=== PATIENT | male | born 1960 | race Two or more races ===

== ENCOUNTER 2025-02-13 19:20 | Emergency (ER) | payer MEDICAID, OTHER ==
[~2025-02-13] VITALS: Ht 180.3 cm; Wt 100.1 kg
--- NOTE | 2025-02-13 19:43 | ED.PDOC ---
HPI Comments 64 y.o male with PMHx of CVA and HTN, presents to the ED for a chief complaint of right sided chest pain that started one hour ago and is associated with SOB. Patient rates pain an 8/10, is non radiating, constant and presented at rest. Patient reports recent admission to this hospital s/p fall with a right lower leg injury and chest pain. Records review, however, does not show recent admission. Patient states he was discharged today, unsure of his diagnosis. Patient does have clean bandages dated today localized to his right lower leg. He mentions he is homeless. Patient denies any nausea, vomiting, fever, chills. Patient admits to tobacco and alcohol use. Chief Complaint: Chest Pain Time Seen by MD: 19:32 Reviewed Notes: Nurses Notes, Medications, Allergies Home Meds Active Scripts Cephalexin Monohydrate (Cephalexin) 500 Mg Cap, 500 MG PO Q6HR for 5 Days, #20 MG Prov:ELSI HIRSCH MD 02/13/25 Information Source: Patient Mode of Arrival: Ambulatory Severity: Moderate Timing: Hours (1) Duration: Since onset Location: Chest (R) Radiation: No Radiation Quality: Sharp Onset: At Rest Cardiac Risk Factors: Smoker, HTN PE Risk Factors: None History of: None Modifying Factors: Nothing Associated Signs and Symptoms: SOB Past Medical History PAST MEDICAL HISTORY: CVA, HTN Surgical History: Denies all surgeries Family History Family History: Reviewed,noncontributory to illness Social History Smoker: Cigarettes Alcohol: Occasionally Drugs: Denies Drug Use Lives In: Home Constitutional: denies: chills, diaphoresis, fatigue, fever, malaise, sweats, weakness, others EENTM: denies: blurred vision, double vision, ear bleeding, ear discharge, ear drainage, ear pain, ear ringing, eye pain, eye redness, hearing loss, mouth pain, mouth swelling, nasal discharge, nose bleeding, nose congestion, nose pain, photophobia, tearing, throat pain, throat swelling, voice changes, others Respiratory: reports: SOB at rest, shortness of breath, SOB with excertion; denies: cough, hemoptysis, orthopnea, stridor, wheezing, others Cardiovascular: reports: chest pain; denies: dizzy spells, diaphoresis, Dyspnea on exertion, edema, irregular heart beat, left arm pain, lightheadedness, palpitations, PND, syncope, others Gastrointestinal: denies: abdomen distended, abdominal pain, blood streaked bowels, constipated, diarrhea, dysphagia, difficulty swallowing, hematemesis, melena, nausea, poor appetite, poor fluid intake, rectal bleeding, rectal pain, vomiting, others Genitourinary: denies: burning, dysuria, flank pain, frequency, hematuria, incontinence, penile discharge, penile sore, pain, testicle pain, testicle swelling, urgency, others Neurological: denies: dizziness, fainting, headache, left sided numbness, left sided weakness, numbness, paresthesia, pre-existing deficit, right sided numbness, right sided weakness, seizure, speech problems, tingling, tremors, weakness, others Musculoskeletal: denies: back pain, gout, joint pain, joint swelling, muscle pain, muscle stiffness, neck pain, others Integumetry: denies: bruises, change in color, change in hair/nails, dryness, laceration, lesions, lumps, rash, wounds, others Allergic/Immunocompromised: denies: Difficulty Healing, Frequent Infections, Hives, Itching, others Hematologic/Lymphatic: denies: anemia, blood clots, easy bleeding, easy bruising, swollen glands, others Endocrine: denies: excessive hunger, excessive sweating, excessive thirst, excessive urination, flushing, intolerance to cold, intolerance to heat, unexplained weight gain, unexplained weight loss, others Psychiatric: denies: anxiety, bipolar disorder, depression, hopeless, panic disorder, schizophrenia, sleepless, suicidal, others All Other Systems: Reviewed and Negative (ROS negative except as noted in HPI) Physical Exam General Appearance: No Apparent Distress, Normal HEENT: Normal ENT Inspection, Pharynx Normal, TMs Normal Neck: Full Range of Motion, Non-Tender, Normal, Normal Inspection Respiratory: Chest Non-Tender, Lungs Clear, No Accessory Muscle Use, No Respiratory Distress, Normal Breath Sounds Cardiovascular: No Edema, No JVD, No Murmur, No Gallop, Normal Peripheral Pulses, Regular Rate/Rhythm Breast Exam: Deferred Gastrointestinal: No Organomegaly, Non Tender, No Pulsatile Mass, Normal Bowel Sounds, Soft Genitalia: Deferred Pelvic: Deferred Rectal: Deferred Extremities: No calf tenderness, Normal capillary refill, Normal inspection, Normal range of motion, Non-tender, No pedal edema Musculoskeletal : Apperance: Normal Neurologic: Alert, platform attendant II-XII nml as Tested, No Motor Deficits (Chronic right upper extremity contracture), Normal Affect, Normal Mood, No Sensory Deficits Cerebellar Function: NOT DONE Reflexes: NOT DONE Skin: Dry, Normal Color, Warm, Other (Erythema to the right lower leg, not circumferential, minimal tenderness to palpation, no open wounds or discharge, ambulating with a steady gait in no distress) Lymphatic: No Adenopathy EKG EKG : Comments Normal sinus rhythm, no acute ST segment changes, prolonged QTC, no STEMI Was a procedure done? Was a procedure done?: No CP Differential Dx Differential Diagnosis: N/A Differential Diagnosis: Angina, Chest Wall Pain, Cholelithiasis, Costochondritis, Myocardial Infarction, Pericarditis Comment cellulitis, abscess, necrotizing soft tissue infection, sepsis X-Ray, Labs, Meds, VS Vital Signs Date Time Temp Pulse Resp B/P (MAP) Pulse Ox O2 Delivery O2 Flow Rate FiO2 02/13/25 22:08 97.9 63 16 150/88 (108) 97 97.9 02/13/25 21:59 64 19 150/88 02/13/25 21:40 73 15 95 Room Air* 0 21 02/13/25 21:29 76 18 146/85 02/13/25 21:01 97.4 73 16 146/85 (105) 98 97.4 02/13/25 19:44 98.4 79 20 149/90 (109) 95 98.4 02/13/25 19:29 72 Lab Test 02/13/25 21:38 02/13/25 20:23 02/13/25 19:20 Range/Units Lactic Acid Level 1.5 2.8 *H 0.4-2.0 mmol/L Troponin I High Sensitivity < 3 L 3 L < 3 L </=54 ng/L White Blood Count 12.2 H 4.4-10.8 10^3/uL Red Blood Count 5.70 4.5-5.90 10^6/uL Hemoglobin 16.6 13.5-17.5 g/dL Hematocrit 50.2 41.0-53.0 % Mean Corpuscular Volume 87.9 80.0-100.0 fL Mean Corpuscular Hemoglobin 29.1 28.0-32.0 pg Mean Corpuscular Hemoglobin Concent 33.1 32.0-36.0 g/dL Red Cell Distribution Width 14.1 11.8-14.3 % Platelet Count 378 140-450 10^3/uL Mean Platelet Volume 8.1 6.9-10.8 fL Neutrophils (%) (Auto) 59.7 37.0-80.0 % Lymphocytes (%) (Auto) 30.7 10.0-50.0 % Monocytes (%) (Auto) 7.7 0.0-12.0 % Eosinophils (%) (Auto) 1.3 0.0-7.0 % Basophils (%) (Auto) 0.6 0.0-2.0 % Neutrophils # (Auto) 7.3 1.6-8.6 10 ^3/uL Lymphocytes # (Auto) 3.7 0.4-5.4 10 ^3/uL Monocytes # (Auto) 0.9 0-1.3 10 ^3/uL Eosinophils # (Auto) 0.2 0-0.8 10 ^3/uL Basophils # (Auto) 0.1 0-0.2 10 ^3/uL Nucleated Red Blood Cells 0.6 % Sodium Level 139 136-145 mmol/L Potassium Level 4.1 3.5-5.1 mmol/L Chloride Level 104 98-107 mmol/L Carbon Dioxide Level 21 20-31 mmol/L Anion Gap 14 5-15 Blood Urea Nitrogen 30 H 9-23 mg/dL Creatinine 1.43 H 0.700-1.30 mg/dL Glomerular Filtration Rate Calc 55 >90 mL/min BUN/Creatinine Ratio 21.0 H 10.0-20.0 Serum Glucose 121 H 74-106 mg/dL Calcium Level 9.9 8.7-10.4 mg/dL Total Bilirubin 0.4 0.2-1.0 mg/dL Aspartate Amino Transferase (AST) 70 H 13-40 U/L Alanine Aminotransferase (ALT) 89 H 7-40 U/L Alkaline Phosphatase 68 46-116 U/L B-Type Natriuretic Peptide 8.99 0-100 pg/mL Total Protein 8.5 H 5.7-8.2 g/dL Albumin 4.8 3.2-4.8 g/dL Current Medications Medications (Trade) Dose Ordered Sig/Raquel Route Start Time Stop Time Status Last Admin Morphine Sulfate 4 mg ONCE ONCE IV 02/13/25 21:30 02/13/25 21:31 DC 02/13/25 21:29 Ondansetron HCl (Zofran) 4 mg ONCE ONCE IV 02/13/25 21:30 02/13/25 21:31 DC 02/13/25 21:29 Sodium Chloride 1,000 ml @ 1,000 mls/hr Q1H ONCE IV 02/13/25 21:30 02/13/25 22:29 DC 02/13/25 21:34 Ceftriaxone Sodium 50 ml @ 100 mls/hr ONCE ONCE IV 02/13/25 21:30 02/13/25 21:59 DC 02/13/25 21:30 X-Ray, Labs, Meds, VS Comment 64-year-old male here today with complaints of right lower extremity infection and chest pain. Vital signs stable, afebrile. Physical exam as above with ev idence of cellulitis to the right lower extremity but no evidence of necrotizing soft tissue infection, deep space abscess, or other more concerning acute process. Labs overall reassuring with evidence of 2- troponins. EKG without evidence of acute ischemia although notable for prolonged QTC. Labs with evidence of mild leukocytosis and elevated lactic acidosis although cleared status post 1 L normal saline bolus. Patient and laying with a steady gait and in no distress. Patient was given 1 dose of ceftriaxone IV and cultures were drawn prior. Patient prescribed Keflex to his preferred pharmacy. Provided return precautions for signs of worsening infection such as fevers, spread of the redness, discharge, or any other new or concerning symptoms. Patient to return to the ER for any concerns. Patient given a meal. Patient discharged in stable condition ambulating with a steady gait and in no distress. Time of 1ST Reevaluation: 18:30 Reevaluation 1ST: Unchanged Patient Education/Counseling: Diagnosis, Treatment, Prognosis Family Education/Counseling: No Family Present Departure 1 Departure Time of Disposition: 23:05 Impression: Primary Impression: Cellulitis Additional Impressions: CKD (chronic kidney disease) Lactic acidosis Disposition: 01 HOME / SELF CARE / HOMELESS Condition: Stable e-Prescriptions Cephalexin Monohydrate (Cephalexin) 500 Mg Cap 500 MG PO Q6HR for 5 Days, #20 MG Prov: ELSI HIRSCH MD 02/13/25 Critical Care Note Critical Care Time?: Yes (30 min-critical care time only) Stability Stability form required: No Heart Score Heart Score: Heart Score Response (Comments) Value History Moderate Suspicious 1 EKG Repolarization Disturb 1 Age 45-64 1 Risk Factors 1 or 2 risk factors 1 Troponin Normal limit 0 Total 4 I personally scribed for ELSI HIRSCH MD ([email or web address]) on 02/13/25 at 19:43. Electronically submitted by Nicky Fay ([facility]). ELSI HIRSCH MD February 13, 2025 19:43
[2025-02-13 19:47] LABS: Basophils # (auto) 0.1 10 ^3/uL (0-0.2); Basophils % (auto) 0.6 % (0.0-2.0); Eosinophils # (auto) 0.2 10 ^3/uL (0-0.8); Eosinophils % (auto) 1.3 % (0.0-7.0); Hematocrit 50.2 % (41.0-53.0); Hemoglobin 16.6 g/dL (13.5-17.5); Lymphocytes # (auto) 3.7 10 ^3/uL (0.4-5.4); Lymphocytes % (auto) 30.7 % (10.0-50.0); Mean Corpuscular Hemoglobin 29.1 pg (28.0-32.0); Mean Corpuscular Hgb Conc. 33.1 g/dL (32.0-36.0); Mean Corpuscular Volume 87.9 fL (80.0-100.0); Monocytes # (auto) 0.9 10 ^3/uL (0-1.3); Monocytes % (auto) 7.7 % (0.0-12.0); Neutrophils # (auto) 7.3 10 ^3/uL (1.6-8.6); Neutrophils % (auto) 59.7 % (37.0-80.0); Nucleated Red Blood Cells % 0.6 %; Platelet Count (auto) 378 10^3/uL (140-450); Red Cell Distribution Width 14.1 % (11.8-14.3); White Blood Cell 12.2 10^3/uL (4.4-10.8)
[2025-02-13 19:59] LABS: Alkaline Phosphatase 68 U/L (46-116); Anion Gap 14 (5-15); Bilirubin, Total 0.4 mg/dL (0.2-1.0); Calcium 9.9 mg/dL (8.7-10.4); Carbon Dioxide 21 mmol/L (20-31); Chloride 104 mmol/L (98-107); Potassium 4.1 mmol/L (3.5-5.1); Sodium 139 mmol/L (136-145)
[2025-02-13 20:00] LABS: Alanine Aminotransferase 89 U/L (7-40); Albumin 4.8 g/dL (3.2-4.8); Aspartate Aminotransferase 70 U/L (13-40); Blood Urea Nitrogen 30 mg/dL (9-23); Glucose 121 mg/dL (74-106); Total Protein 8.5 g/dL (5.7-8.2)
[2025-02-13 20:51] LABS: Lactic Acid w/Reflex 2.8 mmol/L (0.4-2.0)
[2025-02-13] MEDS: MORPHINE SULFATE 4 MG/ML SYR/VIAL IV ONE (21:29)
[2025-02-13] MEDS: ONDANSETRON HCL 4 MG/2 ML VIAL IV ONE (21:29)
[2025-02-13] MEDS: cefTRIAXone 1GM/50ML D5W 50 ML IV ONE (21:30)
[2025-02-13] MEDS: SODIUM CHLORIDE 0.9% 1,000 ML IV ONE (21:34)
[2025-02-13 21:40] VITALS: PULSE 73; RESP 15; O2SAT 95
[2025-02-13 22:08] VITALS: BP 150/88; PULSE 63; RESP 16; TEMP 97.9; O2SAT 97
[2025-02-13] MEDS ORDERED: CEPH500C PO (22:58)
--- NOTE | 2025-02-14 11:00 | ECG ---
[facility], [place] Test Date: 2025-02-13 Test Time: 19:29:49 Pat Name: CHAITANYA HERBERT Department: ER Room: Gender: M Spring Intern: : 1960 Requested By: ELSI HIRSCH Order Number: [id number] Reading MD: Dc Chen Measurements Intervals [place] Rate: 72 P: 36 [place]: 146 QRS: 42 QRSD: 95 T: 47 QT: 489 QTc: 536 Interpretive Statements Sinus rhythm Probable left atrial enlargement Prolonged QT interval Electronically Signed On 02-17-2025 20:37:39 PDT by Dc Chen Please click the below link to view image of tracing.
== END 2025-02-14 | disposition home or self-care (01) ==
LOC: ER 19:20
DX: L03.115 Cellulitis of right lower limb (principal); N18.9 Chronic kidney disease, unspecified; I12.9 Hypertensive chronic kidney disease with stage 1 through stage 4 chronic kidney disease, or unspecified chronic kidney disease; E87.20 Acidosis, unspecified; F17.210 Nicotine dependence, cigarettes, uncomplicated; Z86.73 Personal history of transient ischemic attack (TIA), and cerebral infarction without residual deficits; Z59.00 Homelessness unspecified
CPT/HCPCS: 36415; 80053; 83605; 83880; 84484; 85025; 87040; 93005; 96365; 96375; 99291; J0696; J2270; J2405

== ENCOUNTER 2025-04-08 20:03 | Emergency (ER) | payer MEDICAID ==
[~2025-04-08] VITALS: Ht 177.8 cm; Wt 84.0 kg
[~2025-04-08 20:03] MED LIST: CEPH500C PO
[2025-04-08 21:36] LABS: Basophils # (auto) 0 10 ^3/uL (0-0.2); Basophils % (auto) 0.5 % (0.0-2.0); Eosinophils # (auto) 0.2 10 ^3/uL (0-0.8); Eosinophils % (auto) 1.9 % (0.0-7.0); Hematocrit 44.3 % (41.0-53.0); Hemoglobin 14.9 g/dL (13.5-17.5); Lymphocytes # (auto) 3.1 10 ^3/uL (0.4-5.4); Lymphocytes % (auto) 33.8 % (10.0-50.0); Mean Corpuscular Hemoglobin 29.2 pg (28.0-32.0); Mean Corpuscular Hgb Conc. 33.7 g/dL (32.0-36.0); Mean Corpuscular Volume 86.4 fL (80.0-100.0); Monocytes # (auto) 0.6 10 ^3/uL (0-1.3); Monocytes % (auto) 7.1 % (0.0-12.0); Neutrophils # (auto) 5.1 10 ^3/uL (1.6-8.6); Neutrophils % (auto) 56.7 % (37.0-80.0); Nucleated Red Blood Cells % 0.1 %; Platelet Count (auto) 195 10^3/uL (140-450); Red Blood Cells 5.12 10^6/uL (4.5-5.90); Red Cell Distribution Width 14.7 % (11.8-14.3); White Blood Cell 9.1 10^3/uL (4.4-10.8)
--- NOTE | 2025-04-08 21:40 | DVH ---
CHEST RADIOGRAPH Indication: Shortness of breath Technique: Single frontal view of the chest was obtained Comparison: None FINDINGS: Lines and Tubes: None Lungs: No focal consolidation. Pleura: No effusion. No pneumothorax. Cardiomediastinal contours: Unremarkable Bones: No acute osseous abnormality. IMPRESSION: 1. No acute cardiopulmonary disease.
[2025-04-08 21:44] LABS: Potassium 3.6 mmol/L (3.5-5.1); Sodium 140 mmol/L (136-145)
[2025-04-08 21:45] LABS: Anion Gap 9 (5-15); Calcium 9.6 mg/dL (8.7-10.4); Carbon Dioxide 23 mmol/L (20-31)
[2025-04-08] MEDS: cloNIDine HCL 0.1 MG TAB PO ONE ×2 (21:48→23:15)
[2025-04-08] MEDS: KETOROLAC TROMETH 60MG/2ML VIAL IM ONE (21:48)
[2025-04-08 21:50] LABS: BUN/Creatinine Ratio 10.9 (10.0-20.0); Blood Urea Nitrogen 11 mg/dL (9-23)
[2025-04-08 21:51] LABS: Chloride 108 mmol/L (98-107); Glucose 122 mg/dL (74-106)
--- NOTE | 2025-04-08 22:27 | ED.PDOC ---
HPI Comments This patient is a homeless 64-year-old male who arrives the ED today via EMS for evaluation of hypertensive concerns as well as low back pain issues. Patient states he has not had access to his blood pressure medications due to transportation concerns. Patient is not sure what medications he takes. Patient's blood pressure at arrival was 172/102. Additionally, patient can planes of low back pain concerns status post a strain a few days ago. Patient has a history of low back issues in has already received x-ray evaluation. Patient has not followed up with his primary care provider. Chief Complaint: High Blood Pressure Time Seen by MD: 21:04 Reviewed Notes: Nurses Notes, Interactive Multimedia Designer Notes Allergies: Coded Allergies: NO KNOWN ALLERGIES (Unverified , 04/08/25) Home Meds Active Scripts Cephalexin Monohydrate (Cephalexin) 500 Mg Cap, 500 MG PO Q6HR for 5 Days, #20 MG Prov:ELSI HIRSCH MD 02/13/25 Information Source: Patient, Emergency Med Personnel Mode of Arrival: EMS Severity: Moderate Timing: Days Duration: Since onset Prehospital treatment: None Onset: At Rest Cardiac Risk Factors: Other (Homeless) PE Risk Factors: Other (Homeless) Past Medical History PAST MEDICAL HISTORY: CVA, HTN Surgical History: Denies all surgeries Family History Family History: Reviewed,noncontributory to illness Social History Smoker: Cigarettes Alcohol: Occasionally Drugs: Denies Drug Use Lives In: Home Constitutional: reports: weakness; denies: chills, diaphoresis, fatigue, fever, malaise, sweats, others EENTM: denies: blurred vision, double vision, ear bleeding, ear discharge, ear drainage, ear pain, ear ringing, eye pain, eye redness, hearing loss, mouth pain, mouth swelling, nasal discharge, nose bleeding, nose congestion, nose pain, photophobia, tearing, throat pain, throat swelling, voice changes, others Respiratory: denies: cough, hemoptysis, orthopnea, SOB at rest, shortness of breath, SOB with excertion, stridor, wheezing, others Cardiovascular: denies: chest pain, dizzy spells, diaphoresis, Dyspnea on e xertion, edema, irregular heart beat, left arm pain, lightheadedness, palpitations, PND, syncope, others Gastrointestinal: denies: abdomen distended, abdominal pain, blood streaked bowels, constipated, diarrhea, dysphagia, difficulty swallowing, hematemesis, melena, nausea, poor appetite, poor fluid intake, rectal bleeding, rectal pain, vomiting, others Genitourinary: denies: burning, dysuria, flank pain, frequency, hematuria, incontinence, penile discharge, penile sore, pain, testicle pain, testicle swelling, urgency, others Neurological: denies: dizziness, fainting, headache, left sided numbness, left sided weakness, numbness, paresthesia, pre-existing deficit, right sided numbness, right sided weakness, seizure, speech problems, tingling, tremors, weakness, others Musculoskeletal: reports: back pain; denies: gout, joint pain, joint swelling, muscle pain, muscle stiffness, neck pain, others Integumetry: denies: bruises, change in color, change in hair/nails, dryness, laceration, lesions, lumps, rash, wounds, others Allergic/Immunocompromised: denies: Difficulty Healing, Frequent Infections, Hives, Itching, others Hematologic/Lymphatic: denies: anemia, blood clots, easy bleeding, easy bruising, swollen glands, others Endocrine: denies: excessive hunger, excessive sweating, excessive thirst, excessive urination, flushing, intolerance to cold, intolerance to heat, unexplained weight gain, unexplained weight loss, others Psychiatric: denies: anxiety, bipolar disorder, depression, hopeless, panic disorder, schizophrenia, sleepless, suicidal, others Physical Exam General Appearance: Moderate Distress (Aawb-uu-glhbewth distress due to low back pain concerns.), Normal HEENT: Normal ENT Inspection, Pharynx Normal, TMs Normal Neck: Full Range of Motion, Non-Tender, Normal, Normal Inspection Respiratory: Chest Non-Tender, Lungs Clear, No Accessory Muscle Use, No Respiratory Distress, Normal Breath Sounds, Other (Auscultation bilateral lung man was unremarkable.) Cardiovascular: No Edema, No JVD, No Murmur, No Gallop, Normal Peripheral Pulses, Regular Rate/Rhythm, Other (Unremarkable cardiac evaluation.) Breast Exam: Deferred Gastrointestinal: No Organomegaly, Non Tender, No Pulsatile Mass, Normal Bowel Sounds, Soft Genitalia: Deferred Pelvic: Deferred Rectal: Deferred Extremities: No calf tenderness, Normal capillary refill, Normal range of motion, Non-tender, No pedal edema Neurologic: Alert Cerebellar Function: NOT DONE Reflexes: NOT DONE Skin: Dry, Normal Color, Warm Lymphatic: No Adenopathy Was a procedure done? Was a procedure done?: No CP Differential Dx Differential Diagnosis: A-fib, A-Flutter, Anxiety / Panic Attack, Atrial Dy srhythmia, AV Block 1st Degree, [place], Other (Chronic back pain) Differential Diagnosis: HTN Essential, HTN Accelerated X-Ray, Labs, Meds, VS Vital Signs Date Time Temp Pulse Resp B/P (MAP) Pulse Ox O2 Delivery O2 Flow Rate FiO2 04/08/25 21:54 62 16 96 Room Air 04/08/25 21:54 97.8 62 16 176/108 (130) 96 97.8 04/08/25 21:48 176/108 04/08/25 20:22 67 04/08/25 20:11 98.2 84 16 172/102 (125) 96 98.2 Lab Test 04/08/25 21:25 Range/Units White Blood Count 9.1 4.4-10.8 10^3/uL Red Blood Count 5.12 4.5-5.90 10^6/uL Hemoglobin 14.9 13.5-17.5 g/dL Hematocrit 44.3 41.0-53.0 % Mean Corpuscular Volume 86.4 80.0-100.0 fL Mean Corpuscular Hemoglobin 29.2 28.0-32.0 pg Mean Corpuscular Hemoglobin Concent 33.7 32.0-36.0 g/dL Red Cell Distribution Width 14.7 H 11.8-14.3 % Platelet Count 195 140-450 10^3/uL Mean Platelet Volume 8.3 6.9-10.8 fL Neutrophils (%) (Auto) 56.7 37.0-80.0 % Lymphocytes (%) (Auto) 33.8 10.0-50.0 % Monocytes (%) (Auto) 7.1 0.0-12.0 % Eosinophils (%) (Auto) 1.9 0.0-7.0 % Basophils (%) (Auto) 0.5 0.0-2.0 % Neutrophils # (Auto) 5.1 1.6-8.6 10 ^3/uL Lymphocytes # (Auto) 3.1 0.4-5.4 10 ^3/uL Monocytes # (Auto) 0.6 0-1.3 10 ^3/uL Eosinophils # (Auto) 0.2 0-0.8 10 ^3/uL Basophils # (Auto) 0 0-0.2 10 ^3/uL Nucleated Red Blood Cells 0.1 % Sodium Level 140 136-145 mmol/L Potassium Level 3.6 3.5-5.1 mmol/L Chloride Level 108 H 98-107 mmol/L Carbon Dioxide Level 23 20-31 mmol/L Anion Gap 9 5-15 Blood Urea Nitrogen 11 9-23 mg/dL Creatinine 1.01 0.700-1.30 mg/dL Glomerular Filtration Rate Calc 83 >90 mL/min BUN/Creatinine Ratio 10.9 10.0-20.0 Serum Glucose 122 H 74-106 mg/dL Calcium Level 9.6 8.7-10.4 mg/dL Troponin I High Sensitivity 3 L </=54 ng/L Current Medications Medications (Trade) Dose Ordered Sig/Raquel Route Start Time Stop Time Status Last Admin Clonidine HCl (Catapres Tablet) 0.2 mg ONCE ONCE PO 04/08/25 21:15 04/08/25 21:16 DC 04/08/25 21:48 Ketorolac Tromethamine (Toradol Injection) 30 mg ONCE ONCE IM 04/08/25 21:15 04/08/25 21:16 DC 04/08/25 21:48 X-Ray, Labs, Meds, VS Comment All studies performed the ED were evaluated by me personally. Serum analysis was unremarkable for any systemic concerns including unremarkable cardiac markers. EKG revealed a sinus rhythm with a rate of 67. [place] interval of 137 and QT interval of 427. Chest x-ray was unremarkable for any consolidation or signs of intrapulmonary concerns. Patient will be sent home with some emergent medication to address his blood pressure concerns. Patient has been advised of the need to follow up with primary care provider for management of blood pressure as well as evaluation of low back pain concerns. Time of 1ST Reevaluation: 22:32 Reevaluation 1ST: Improved Consultation: PCP, Cardiology Patient Education/Counseling: Diagnosis, Treatment Family Education/Counseling: Diagnosis, Treatment SEPSIS Sepsis Screen Date sepsis recognized/suspect: Apr 08, 2025 Time Sepsis recognized/suspect: 2006 Recent Procedure: No On Antibiotic Therapy: No Respiratory Rate >20: No Heart Rate >90: No Temp<36 C (96.8 F) or >38.3 C: No SBP <90 or MAP <65 mmHG: No New Acute Mental Status Change: No Is the patient on CPAP, BIPAP,: No Physician Orders Chest Portable (04/08/25 21:10) Heplock Iv (04/08/25 21:10) Electrocardigram (04/08/25 21:10) Vital Signs Date Time Temp Pulse Resp B/P (MAP) Pulse Ox O2 Delivery O2 Flow Rate FiO2 04/08/25 21:54 62 16 96 Room Air 04/08/25 21:54 97.8 62 16 176/108 (130) 96 97.8 04/08/25 21:48 176/108 04/08/25 20:22 67 04/08/25 20:11 98.2 84 16 172/102 (125) 96 98.2 Laboratory Tests Test 04/08/25 21:25 White Blood Count 9.1 10^3/uL (4.4-10.8) Medications Medications Dose Ordered Sig/Raquel Route Start Time Stop Time Status Last Admin Dose Admin Clonidine HCl 0.2 mg ONCE ONCE PO 04/08/25 21:15 04/08/25 21:16 DC 04/08/25 21:48 Ketorolac Tromethamine 30 mg ONCE ONCE IM 04/08/25 21:15 04/08/25 21:16 DC 04/08/25 21:48 Departure 1 Departure Time of Disposition: 22:32 Impression: Primary Impression: Hypertensive urgency Additional Impression: Chronic low back pain Disposition: HOME / SELF CARE / HOMELESS Condition: Stable Additional Instructions: Advised patient utilize emergent blood pressure medication as needed for symptomatic relief as well as pain therapy as needed. Patient needs to follow up with the primary care provider for management of his hypertension as well as discussions related to his chronic low back concerns. e-Prescriptions Acetaminophen (Acetaminophen) 500 Mg Tab 500 MG PO Q4HP PRN, #30 TAB Prov: MIGUEL SMITH PAC 04/08/25 Ibuprofen Micronized (Ibuprofen) 800 Mg Tab 800 MG PO Q8HP PRN, #20 TAB Prov: MIGUEL SMITH PAC 04/08/25 Clonidine Hydrochloride (Clonidine Hcl) 0.2 Mg Tab 1 TAB PO BID, #10 TAB 0 Refills To be used if systolic pressure is above 160 or diastolic pressure is above 90. Prov: MIGUEL SMITH PAC 04/08/25 Discharged With: Self Critical Care Note Critical Care Time?: No Stability Stability form required: No Heart Score Heart Score: Heart Score Response (Comments) Value History Slightly Suspicious 0 EKG Normal 0 Age <45 0 Risk Factors 1 or 2 risk factors 1 Troponin Normal limit 0 Total 1 MIGUEL SMITH PAC Apr 08, 2025 22:27
[2025-04-08] MEDS ORDERED: ACET500T58 PO (22:34)
[2025-04-08] MEDS ORDERED: CLON0.2T PO (22:34)
[2025-04-08] MEDS ORDERED: IBUP-1455 PO (22:34)
[2025-04-09 00:26] VITALS: BP 137/96; PULSE 60; RESP 16; TEMP 97.6; O2SAT 97
== END 2025-04-09 00:32 | disposition home or self-care (01) ==
LOC: EDBD 20:03 → ER 20:03
DX: G89.29 Other chronic pain (principal); M54.50 Low back pain, unspecified; I16.0 Hypertensive urgency; I10 Essential (primary) hypertension; F17.210 Nicotine dependence, cigarettes, uncomplicated; Z86.73 Personal history of transient ischemic attack (TIA), and cerebral infarction without residual deficits
CPT/HCPCS: 36415; 71045; 80048; 84484; 85025; 96372; 99285; J1885

== ENCOUNTER 2025-04-28 09:39 | Inpatient (IN) | payer MEDICAID ==
[~2025-04-28] VITALS: Ht 182.9 cm; Wt 97.5 kg
[~2025-04-28 09:39] MED LIST changes: +ACET500T58 PO; +CLON0.2T PO; +IBUP-1455 PO
--- NOTE | 2025-04-28 09:51 | ECG ---
[facility] Test Date: 2025-04-28 Test Time: 09:50:20 Pat Name: CHAITANYA HERBERT Department: ED Room: 0247 Gender: M Information Services Assistant: gp : 1960 Requested By: JUMANA VICTORIA Order Number: [id number] Reading MD: Dc Chen Measurements Intervals [place] Rate: 56 P: 33 [place]: 152 QRS: 77 QRSD: 102 T: 50 QT: 481 QTc: 465 Interpretive Statements Sinus rhythm Electronically Signed On 05-04-2025 15:39:12 PDT by Dc Chen Please click the below link to view image of tracing.
--- NOTE | 2025-04-28 10:28 | ED.PDOC ---
History of Present Illness HPI Comments 64-year-old male brought in by EMS presents with a chief complaint of chest pain x 2 days. Patient states that he is having sternal chest pain that has been worsening over the past 2 days. Patient denies any nausea, vomiting, or diarrhea with this chest pain. No other symptoms or modifying factors present at this time. Chief Complaint: Chest Pain Time Seen by MD: 10:06 Reviewed Notes: Medications, Allergies Allergies: Coded Allergies: NO KNOWN ALLERGIES (Unverified , 04/08/25) Home Meds Active Scripts Acetaminophen (Acetaminophen) 500 Mg Tab, 500 MG PO Q4HP PRN, #30 TAB Prov:[facility] 04/08/25 Ibuprofen Micronized (Ibuprofen) 800 Mg Tab, 800 MG PO Q8HP PRN, #20 TAB Prov:[facility] 04/08/25 Clonidine Hydrochloride (Clonidine Hcl) 0.2 Mg Tab, 1 TAB PO BID, #10 TAB 0 Refills To be used if systolic pressure is above 160 or diastolic pressure is above 90. Prov:[facility] 04/08/25 Cephalexin Monohydrate (Cephalexin) 500 Mg Cap, 500 MG PO Q6HR for 5 Days, #20 MG Prov:ELSI HIRSCH MD 02/13/25 Information Source: Patient Mode of Arrival: EMS Severity: Moderate Timing: Days Duration: Since onset Prehospital treatment: [facility] Past Medical History PAST MEDICAL HISTORY: CVA, HTN Surgical History: Denies all surgeries Family History Family History: Reviewed,noncontributory to illness Social History Smoker: Cigarettes Alcohol: Occasionally Drugs: Denies Drug Use Lives In: Home Constitutional: denies: chills, diaphoresis, fatigue, fever, malaise, sweats, weakness, others EENTM: denies: blurred vision, double vision, ear bleeding, ear discharge, ear drainage, ear pain, ear ringing, eye pain, eye redness, hearing loss, mouth pain, mouth swelling, nasal discharge, nose bleeding, nose congestion, nose pain, photophobia, tearing, throat pain, throat swelling, voice changes, others Respiratory: denies: cough, hemoptysis, orthopnea, SOB at rest, shortness of breath, SOB with excertion, stridor, wheezing, others Cardiovascular: reports: chest pain; denies: dizzy spells, diaphoresis, Dyspnea on exertion, edema, irregular heart beat, left arm pain, lightheadedness, palpitations, PND, syncope, others Gastrointestinal: denies: abdomen distended, abdominal pain, blood streaked bowels, constipated, diarrhea, dysphagia, difficulty swallowing, hematemesis, melena, nausea, poor appetite, poor fluid intake, rectal bleeding, rectal pain, vomiting, others Genitourinary: denies: burning, dysuria, flank pain, frequency, hematuria, incontinence, penile discharge, penile sore, pain, testicle pain, testicle swelling, urgency, others Neurological: denies: dizziness, fainting, headache, left sided numbness, left sided weakness, numbness, paresthesia, pre-existing deficit, right sided numbness, right sided weakness, seizure, speech problems, tingling, tremors, weakness, others Musculoskeletal: denies: back pain, gout, joint pain, joint swelling, muscle pain, muscle stiffness, neck pain, others Integumetry: denies: bruises, change in color, change in hair/nails, dryness, laceration, lesions, lumps, rash, wounds, others Allergic/Immunocompromised: denies: Difficulty Healing, Frequent Infections, Hives, Itching, others Hematologic/Lymphatic: denies: anemia, blood clots, easy bleeding, easy bruising, swollen glands, others Endocrine: denies: excessive hunger, excessive sweating, excessive thirst, excessive urination, flushing, intolerance to cold, intolerance to heat, unexplained weight gain, unexplained weight loss, others Psychiatric: denies: anxiety, bipolar disorder, depression, hopeless, panic disorder, schizophrenia, sleepless, suicidal, others All Other Systems: Reviewed and Negative Physical Exam General Appearance: No Apparent Distress, Normal HEENT: Normal ENT Inspection, Pharynx Normal, TMs Normal Neck: Full Range of Motion, Non-Tender, Normal, Normal Inspection Respiratory: Chest Non-Tender, Lungs Clear, No Accessory Muscle Use, No Respiratory Distress, Normal Breath Sounds Cardiovascular: No Edema, No JVD, No Murmur, No Gallop, Normal Peripheral Pulses, Regular Rate/Rhythm Breast Exam: Deferred Gastrointestinal: No Organomegaly, Non Tender, No Pulsatile Mass, Normal Bowel Sounds, Soft Genitalia: Deferred Pelvic: Deferred Rectal: Deferred Extremities: No calf tenderness, Normal capillary refill, Normal inspection, Normal range of motion, Non-tender, No pedal edema Musculoskeletal : Apperance: Normal Neurologic: Alert, restoration ecologist II-XII nml as Tested, No Motor Deficits, Normal Affect, Normal Mood, No Sensory Deficits Cerebellar Function: Normal Reflexes: Normal Skin: Dry, Normal Color, Warm Lymphatic: No Adenopathy Was a procedure done? Was a procedure done?: No Differential Dx Considerations may include: ACS, CVA, viral syndrome, infectious etiology, cardiac arrhythmia X-Ray, Labs, Meds, VS Vital Signs Date Time Temp Pulse Resp B/P (MAP) Pulse Ox O2 Delivery O2 Flow Rate FiO2 04/28/25 12:23 97.5 60 16 130/87 (101) 95 97.5 04/28/25 11:02 56 04/28/25 09:50 56 04/28/25 09:46 98.2 62 18 167/109 (128) 99 98.2 Lab Test 04/28/25 11:56 04/28/25 10:46 Range/Units Troponin I High Sensitivity 4 4 </=54 ng/L White Blood Count 8.4 4.4-10.8 10^3/uL Red Blood Count 5.47 4.5-5.90 10^6/uL Hemoglobin 15.8 13.5-17.5 g/dL Hematocrit 47.4 41.0-53.0 % Mean Corpuscular Volume 86.6 80.0-100.0 fL Mean Corpuscular Hemoglobin 28.8 28.0-32.0 pg Mean Corpuscular Hemoglobin Concent 33.3 32.0-36.0 g/dL Red Cell Distribution Width 14.3 11.8-14.3 % Platelet Count 215 140-450 10^3/uL Mean Platelet Volume 8.2 6.9-10.8 fL Neutrophils (%) (Auto) 57.0 37.0-80.0 % Lymphocytes (%) (Auto) 33.0 10.0-50.0 % Monocytes (%) (Auto) 6.7 0.0-12.0 % Eosinophils (%) (Auto) 3.0 0.0-7.0 % Basophils (%) (Auto) 0.3 0.0-2.0 % Neutrophils # (Auto) 4.8 1.6-8.6 10 ^3/uL Lymphocytes # (Auto) 2.8 0.4-5.4 10 ^3/uL Monocytes # (Auto) 0.6 0-1.3 10 ^3/uL Eosinophils # (Auto) 0.3 0-0.8 10 ^3/uL Basophils # (Auto) 0 0-0.2 10 ^3/uL Nucleated Red Blood Cells 0.2 % Sodium Level 140 136-145 mmol/L Potassium Level 3.7 3.5-5.1 mmol/L Chloride Level 107 98-107 mmol/L Carbon Dioxide Level 26 20-31 mmol/L Anion Gap 7 5-15 Blood Urea Nitrogen 11 9-23 mg/dL Creatinine 1.07 0.700-1.30 mg/dL Glomerular Filtration Rate Calc 77 >90 mL/min BUN/Creatinine Ratio 10.3 10.0-20.0 Serum Glucose 112 H 74-106 mg/dL Calcium Level 9.8 8.7-10.4 mg/dL Time of 1ST Reevaluation: 10:43 Reevaluation 1ST: Unchanged Patient Education/Counseling: Diagnosis, Treatment Family Education/Counseling: No Family Present SEPSIS Sepsis Screen Date sepsis recognized/suspect: Apr 28, 2025 Time Sepsis recognized/suspect: 940 Recent Procedure: No On Antibiotic Therapy: No Respiratory Rate >20: No Heart Rate >90: No Temp<36 C (96.8 F) or >38.3 C: No SBP <90 or MAP <65 mmHG: No New Acute Mental Status Change: No Is the patient on CPAP, BIPAP,: No Physician Orders Urinalysis (04/28/25 10:14) Chest Portable (04/28/25 10:14) Head Without Contrast (04/28/25 10:14) Vital Signs Date Time Temp Pulse Resp B/P (MAP) Pulse Ox O2 Delivery O2 Flow Rate FiO2 04/28/25 12:23 97.5 60 16 130/87 (101) 95 97.5 04/28/25 11:02 56 04/28/25 09:50 56 04/28/25 09:46 98.2 62 18 167/109 (128) 99 98.2 Laboratory Tests Test 04/28/25 10:46 White Blood Count 8.4 10^3/uL (4.4-10.8) Departure 1 Departure Time of Disposition: 13:44 (Patient presented with syncope today and should be admitted. Data: 1. I ordered and reviewed the result of at least 3 labs including a CBC, BMP, and troponin. 2. I independently interpreted the following tests: EKG which shows a sinus arrhythmia and a chest x-ray which shows benign chest and a CT head which shows benign brain.Risk:This patient has a high risk of morbidity due to further diagnostic testing or treatment and may suffer from an acute cardiac, neurologic, or infectious disorder. Rationale: Patient should be admitted to the hospital for further management.) Impression: Primary Impression: Syncope and collapse Additional Impression: Acute chest pain Disposition: ADMITTED INPATIENT Admit to: Med Surg Condition: Serious Critical Care Note Critical Care Time?: Yes Critical care comment: Acute chest pain Authorized and Performed by: Jumana Victoria MD Total critical care time: Approximately 54 minutes Due to a high probability of clinically significant, life threatening deterioration, the patient required my highest level of preparedness to intervene emergently and I personally spent this critical care time directly and personally managing the patient. This critical care time included obtaining a history; examining the patient; pulse oximetry; ordering and review of studies; arranging urgent treatment with development of a management plan; evaluation of patient's response to treatment; frequent reassessment; and, discussions with other providers. This critical care time was performed to assess and manage the high probability of imminent, life-threatening deterioration that could result in multi-organ failure. It was exclusive of separately billable procedures and treating other patients and teaching time. Please see my other sections and the rest of the note for further information on patient assessment and treatment. Stability Stability form required: No I personally scribed for JUMANA VICTORIA MD ([email or web address]) on 04/28/25 at 10:28. Electronically submitted by Vadim Edwards ([email or web address]). JUMANA VICTORIA MD Apr 28, 2025 10:28
--- NOTE | 2025-04-28 10:50 | DVH ---
EXAM: XY CHEST PORTABLE Indication: syncope Technique: Single frontal view of the chest was obtained Comparison: XY CHEST PORTABLE on DOS: 04/08/25 FINDINGS: Lines and Tubes: None Lungs: No focal consolidation. Pleura: No effusion. No pneumothorax. Cardiomediastinal contours: Unremarkable Bones: No acute osseous abnormality. IMPRESSION: No acute cardiopulmonary disease.
--- NOTE | 2025-04-28 11:03 | ECG ---
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
[2025-04-28 11:08] LABS: Hematocrit 47.4 % (41.0-53.0); Hemoglobin 15.8 g/dL (13.5-17.5); Mean Corpuscular Hemoglobin 28.8 pg (28.0-32.0); Mean Corpuscular Volume 86.6 fL (80.0-100.0); Nucleated Red Blood Cells % 0.2 %
--- NOTE | 2025-04-28 11:08 | DVH ---
EXAM: CT HEAD WITHOUT CONTRAST INDICATION: syncope TECHNIQUE: CT of the head without intravenous contrast. Radiation Dose : 1. Head: CT Dose: CTDI volume is 63.26 mGy. Dose-length product is 1199.08 mGy*cm The dose indicators for CT are the volume Computed Tomography (CT) Dose Index (CTDIvol) and the Dose Length Product (DLP), and are measured in units of mGy and mGy-cm, respectively. These indicators are not patient dose, but values generated from the CT scanner acquisition factors. The report includes radiation exposure data for exposures received during this examination. COMPARISON: None FINDINGS: There is no evidence of acute intracranial hemorrhage, extra-axial collection, mass effect, midline s hift, herniation or hydrocephalus. Left frontal lobe and left parietal lobe encephalomalacia. The ventricles, sulci and cisterns are age appropriate. The melara-white differentiation is intact. Patchy periventricular and subcortical white matter hypoattenuation is nonspecific but may be related to small vessel ischemic disease. The visualized paranasal sinuses and mastoid air cells are clear. The surrounding soft tissues and osseous structures are unremarkable. IMPRESSION: No acute intracranial abnormality. Radiation optimization: All CT scans at this facility use at least one of these dose optimization anuja hniques: automated exposure control mA and/or kV adjustment per patient size (includes targeted exam s where dose is matched to clinical indication) or iterative reconstruction.
[2025-04-28 11:16] LABS: Potassium 3.7 mmol/L (3.5-5.1); Sodium 140 mmol/L (136-145)
[2025-04-28 11:17] LABS: Anion Gap 7 (5-15); Carbon Dioxide 26 mmol/L (20-31)
[2025-04-28 11:18] LABS: Calcium 9.8 mg/dL (8.7-10.4)
[2025-04-28 11:19] LABS: Chloride 107 mmol/L (98-107)
[2025-04-28 11:22] LABS: Glucose 112 mg/dL (74-106)
[2025-04-28 11:23] LABS: BUN/Creatinine Ratio 10.3 (10.0-20.0); Blood Urea Nitrogen 11 mg/dL (9-23)
--- NOTE | 2025-04-28 13:07 | ECG ---
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
[2025-04-28] MEDS ORDERED: NITROGLYCERIN 0.4 MG SL TAB SL PRN (14:45)
--- NOTE | 2025-04-28 16:38 | DVHHP2 ---
History of Present Illness Reason for Visit: Chest pain History of Present Illness 64-year-old male presents for evaluation of chest pain. Patient endorses a two day history of substernal sharp chest pain with associated shortness for breath. Denies nausea or vomiting. He states the pain radiates to his left shoulder at times. No cough or fever. No other acute complaints. Past Medical History CVA, hypertension Past Surgical History Denies Family History Noncontributory Smoke: <1 pack per day ALCOHOL: occassional Drugs: None Lives: with Family Review of Systems Review of Systems Review of systems are currently negative otherwise addressed in HPI. Allergies: Coded Allergies: NO KNOWN ALLERGIES (Unverified , 04/08/25) Medications Current Medications Medications Dose Ordered Sig/Raquel Route Start Time Stop Time Status Last Admin Dose Admin Clonidine HCl 0.2 mg BID PO 04/28/25 22:00 Aspirin 81 mg DAILY PO 04/29/25 10:00 Atorvastatin Calcium 10 mg HS PO 04/28/25 22:00 Ondansetron HCl 4 mg Q4HP PRN IV 04/28/25 14:45 Acetaminophen 650 mg Q6HP PRN PO 04/28/25 14:45 Nitroglycerin 0.4 mg Q5MINP PRN SL 04/28/25 14:45 Morphine Sulfate 2 mg Q30M PRN IV 04/28/25 14:45 Exam Vital Signs Vital Signs Date Time Temp Pulse Resp B/P (MAP) Pulse Ox O2 Delivery O2 Flow Rate FiO2 04/28/25 16:33 98.7 56 16 148/83 (104) 94 98.7 Exam Gen: 64-year-old male in no apparent distress. Skin: Warm, dry, normal color and texture, no rash. HEENT: Normocephalic atraumatic, mucous membranes moist and pink. Neck: Cervical and supraclavicular nodes normal without enlargement, trachea is midline, thyroid gland is normal without masses. Pulmonary: Clear to auscultation and percussion bilaterally. Cardiac: Regular rate and rhythm. No murmur Abdomen: Soft, nontender, nondistended, bowel sounds present all 4 quadrants, no guarding, no rigidity, no organomegaly. Extremities: No cyanosis, clubbing, no edema Neuro: Cranial nerves II through XII grossly intact, normal affect and speech, no focal motor deficits. Labs/Xrays AGE / SEX: 64 / M ADM STATUS: REG ER SERVICE 1014 ORDERING PHYSICIAN: JUMANA VICTORIA MD PROCEDURE(s): CXRP - CHEST PORTABLE REASON: syncope ORDER NUMBER(s): [id number], ACCESSION NUMBER(s): [id number] EXAM: XY CHEST PORTABLE Indication: syncope Technique: Single frontal view of the chest was obtained Comparison: XY CHEST PORTABLE on DOS: 04/08/25 FINDINGS: Lines and Tubes: None Lungs: No focal consolidation. Pleura: No effusion. No pneumothorax. Cardiomediastinal contours: Unremarkable Bones: No acute osseous abnormality. IMPRESSION: No acute cardiopulmonary disease. RING PHYSICIAN: JUMANA VICTORIA MD PROCEDURE(s): HWOCT - HEAD WITHOUT CONTRAST REASON: syncope ORDER NUMBER(s): [id number], ACCESSION NUMBER(s): [id number] EXAM: CT HEAD WITHOUT CONTRAST INDICATION: syncope TECHNIQUE: CT of the head without intravenous contrast. Radiation Dose : 1. Head: CT Dose: CTDI volume is 63.26 mGy. Dose-length product is 1199.08 mGy*cm The dose indicators for CT are the volume Computed Tomography (CT) Dose Index (CTDIvol) and the Dose Length Product (DLP), and are measured in units of mGy and mGy-cm, respectively. These indicators are not patient dose, but values generated from the CT scanner acquisition factors. The report includes radiation exposure data for exposures received during this examination. COMPARISON: None FINDINGS: There is no evidence of acute intracranial hemorrhage, extra-axial collection, mass effect, midline shift, herniation or hydrocephalus. Left frontal lobe and left parietal lobe encephalomalacia. The ventricles, sulci and cisterns are age appropriate. The melara-white differentiation is intact. Patchy periventricular and subcortical white matter hypoattenuation is nonspecific but may be related to small vessel ischemic disease. The visualized paranasal sinuses and mastoid air cells are clear. The surrounding soft tissues and osseous structures are unremarkable. IMPRESSION: No acute intracranial abnormality. Radiation optimization: All CT scans at this facility use at least one of these dose optimization techniques: automated exposure control mA and/or kV adjustment per patient size (includes targeted exams where dose is matched to clinical indication) or iterative reconstruction. ATED BY: KYLE MONROE MD DICTATED DATE/TIME: 04/28/251104 SIGNED BY: KYLE MONROE MD SIGNED DATE/TIME: 04/28/251104 CC: Labs Test 04/28/25 11:56 04/28/25 10:46 Range/Units Troponin I High Sensitivity 4 </=54 ng/L White Blood Count 8.4 4.4-10.8 10^3/uL Red Blood Count 5.47 4.5-5.90 10^6/uL Hemoglobin 15.8 13.5-17.5 g/dL Hematocrit 47.4 41.0-53.0 % Mean Corpuscular Volume 86.6 80.0-100.0 fL Mean Corpuscular Hemoglobin 28.8 28.0-32.0 pg Mean Corpuscular Hemoglobin Concent 33.3 32.0-36.0 g/dL Red Cell Distribution Width 14.3 11.8-14.3 % Platelet Count 215 140-450 10^3/uL Mean Platelet Volume 8.2 6.9-10.8 fL Neutrophils (%) (Auto) 57.0 37.0-80.0 % Lymphocytes (%) (Auto) 33.0 10.0-50.0 % Monocytes (%) (Auto) 6.7 0.0-12.0 % Eosinophils (%) (Auto) 3.0 0.0-7.0 % Basophils (%) (Auto) 0.3 0.0-2.0 % Neutrophils # (Auto) 4.8 1.6-8.6 10 ^3/uL Lymphocytes # (Auto) 2.8 0.4-5.4 10 ^3/uL Monocytes # (Auto) 0.6 0-1.3 10 ^3/uL Eosinophils # (Auto) 0.3 0-0.8 10 ^3/uL Basophils # (Auto) 0 0-0.2 10 ^3/uL Nucleated Red Blood Cells 0.2 % Sodium Level 140 136-145 mmol/L Potassium Level 3.7 3.5-5.1 mmol/L Chloride Level 107 98-107 mmol/L Carbon Dioxide Level 26 20-31 mmol/L Anion Gap 7 5-15 Blood Urea Nitrogen 11 9-23 mg/dL Creatinine 1.07 0.700-1.30 mg/dL Glomerular Filtration Rate Calc 77 >90 mL/min BUN/Creatinine Ratio 10.3 10.0-20.0 Serum Glucose 112 H 74-106 mg/dL Calcium Level 9.8 8.7-10.4 mg/dL SEPSIS Sepsis Screen Date sepsis recognized/suspect: Apr 28, 2025 Time Sepsis recognized/suspect: 940 Recent Procedure: No On Antibiotic Therapy: No Respiratory Rate >20: No Heart Rate >90: No Temp<36 C (96.8 F) or >38.3 C: No SBP <90 or MAP <65 mmHG: No New Acute Mental Status Change: No Is the patient on CPAP, BIPAP,: No Physician Orders Urinalysis (04/28/25 10:14) Chest Portable (04/28/25 10:14) Head Without Contrast (04/28/25 10:14) Clonidine Hcl Tablet (Catapres Tablet) (04/28/25 22:00) Aspirin Tablet (04/29/25 10:00) Atorvastatin (Lipitor) (04/28/25 22:00) Basic Metabolic Panel (04/29/25 04:00) Admit (04/28/25 14:32) Ondansetron Hcl (Zofran) (04/28/25 14:45) Cardiac Diet-2gna,Lofat,Lochol (04/28/25 Dinner) Echo 2d Mode Cardiac Dop (04/28/25 14:32) Condition: Fair (04/28/25 14:32) Acetaminophen Tablet (Tylenol Tablet) (04/28/25 14:45) Bedrest With Bathroom Privileg (04/28/25 14:32) Nitroglycerin Sublingual (Ntrostat Subli (04/28/25 14:45) Morphine Sulfate Injection (04/28/25 14:45) Stat Ekg For Chest Pain (04/28/25 14:32) Notify Of Changes From Base (04/28/25 14:32) Physics Tutor For 24 Hours (04/28/25 14:32) Emergency Dysrhythmia Protocol (04/28/25 14:32) Rhythm Strips Once Every Shift (04/28/25 14:32) Oxygen By Nasal Cannula (04/28/25 14:32) Vital Signs Date Time Temp Pulse Resp B/P (MAP) Pulse Ox O2 Delivery O2 Flow Rate FiO2 04/28/25 16:33 98.7 56 16 148/83 (104) 94 98.7 04/28/25 13:06 55 04/28/25 12:23 97.5 60 16 130/87 (101) 95 97.5 04/28/25 11:02 56 04/28/25 09:50 56 04/28/25 09:46 98.2 62 18 167/109 (128) 99 98.2 Laboratory Tests Test 04/28/25 10:46 White Blood Count 8.4 10^3/uL (4.4-10.8) Assessment/Plan Assessment/Plan Assessment Chest pain rule out ACS Bradycardia History of CVA with right-sided deficits Hypertension Plan Admit the patient to telemetry to the hospitalist ACS protocol Resume home medications Continue treatment per orders. Plan discussed with: Patient My Orders Orders - SERGIO HOLDEN Procedure Category Date Status Time Clonidine Hcl Tablet PHA 04/28/25 In Process (Catapres Tablet) 22:00 Aspirin Tablet PHA 04/29/25 In Process 10:00 Atorvastatin (Lipitor) PHA 04/28/25 In Process 22:00 Basic Metabolic Panel LAB 04/29/25 Verified 04:00 Admit ADMIT 04/28/25 Transmitted 14:32 Ondansetron Hcl PHA 04/28/25 In Process (Zofran) 14:45 Cardiac DIET 04/28/25 Transmitted Diet-2gna,Lofat,Lochol Dinner Echo 2d Mode Cardiac US 04/28/25 Logged DOP 14:32 Condition: Fair OBED 04/28/25 In Process 14:32 Acetaminophen Tablet PHA 04/28/25 In Process (Tylenol Tablet) 14:45 Bedrest With Bathroom OBED 04/28/25 In Process Privileg 14:32 Nitroglycerin PHA 04/28/25 In Process Sublingual (Ntrostat 14:45 Morphine Sulfate PHA 04/28/25 In Process Injection 14:45 Stat Ekg For Chest OBED 04/28/25 In Process Pain 14:32 Notify Of Changes OBED 04/28/25 In Process From Base 14:32 Physics Tutor For OBED 04/28/25 In Process 24 Hours 14:32 Emergency Dysrhythmia OBED 04/28/25 In Process Protocol 14:32 Rhythm Strips Once [facility] 04/28/25 In Process Every Shift 14:32 Oxygen By Nasal RT 04/28/25 Transmitted Cannula 14:32 Date of Service: Apr 28, 2025 Billing Provider: SERGIO HOLDEN Common Visit Codes: [id number] INP/OBS CARE (HIGH) SERGIO HOLDEN Apr 28, 2025 16:38
[2025-04-28 16:55] LABS: Triglycerides 66 mg/dL (< 150)
[2025-04-28 16:56] LABS: Cholesterol 157 mg/dL (< 200); HDL Cholesterol 48 mg/dL (40-59)
[2025-04-28 19:20] VITALS: PULSE 66; RESP 16; O2SAT 96
[2025-04-28 19:49] LABS: Urine Protein, UAD 1+ (Negative)
[2025-04-28] MEDS: ONDANSETRON HCL 4 MG/2 ML VIAL IV PRN (20:54)
[2025-04-28] MEDS: MORPHINE SULFATE INJ 2 MG/ml SYRG IV PRN (20:54)
[2025-04-28] MEDS: ATORVASTATIN 20 MG TAB PO SCH (22:07)
[2025-04-28 23:01] VITALS: BP 165/108; PULSE 50; RESP 17; TEMP 97.7; O2SAT 96
[2025-04-29] VITALS (8 sets, daily range): BP systolic 113–154; BP diastolic 42–101; PULSE 50–60; RESP 16–20; TEMP 97.8–98.1; O2SAT 94–96
[2025-04-29] MEDS ORDERED: hydrALAZINE HCL 20 MG/ML VL IV PRN (00:30)
[2025-04-29 06:31] LABS: Chloride 106 mmol/L (98-107); Potassium 3.7 mmol/L (3.5-5.1); Sodium 140 mmol/L (136-145)
[2025-04-29 06:32] LABS: Anion Gap 8 (5-15); Carbon Dioxide 26 mmol/L (20-31)
[2025-04-29 06:37] LABS: BUN/Creatinine Ratio 13.7 (10.0-20.0); Blood Urea Nitrogen 14 mg/dL (9-23); Calcium 8.6 mg/dL (8.7-10.4); Glucose 100 mg/dL (74-106)
--- NOTE | 2025-04-29 10:22 | DVHPNRES ---
Progress Note Date Seen: Apr 29, 2025 Resident Creating Document: LON RODRIGUEZ RESIDENT Medical Necessity Reason Pt with a Central, PICC or Fol: No Subjective Review of Systems Beto Kwan is a 64-year-old male presented to the ED with chief complaint of chest pain that started 4 days ago. His pain started in the right lower costal area. The pain is intractable, sharp, radiating to the midline of the chest. The pain is accompanied with shortness of breaths. No history of fever, nausea or vomiting, diarrhea, loss of consciousness. No history of blunt abdominal trauma or blunt thoracic trauma. 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 After the surgery, he was left with deficit, more prominent on the right side of the body. His labs show borderline hypocalcemia. Urine analysis shows turbid urine with WBC 19, few bacteria. His head CT shows no abnormality. Chest x-ray shows no abnormality. CT abdomen shows cholelithiasis, calcification in the upper pole of the left kidney, high density left renal cysts. Social history: No alcohol use, smokes 2 cigarettes a day, recreational drug use (methamphetamine), poor hygiene ROS: Constitutional: Patient is in visible discomfort. HEENT: Denies changes in vision and hearing. Respiratory: Complains of shortness of breath Cardiovascular: Chest pain GI: Intractable right upper quadrant, intercostal pain radiating to the abdomen in the right side : Denies dysuria and urinary frequency. Musculoskeletal: Denies myalgias and joint pain Skin: Denies rash and pruritus. Neurological: Denies dizziness, headache, vision or hearing problems Objective vital signs Vital Sign Date Time Temp Pulse Resp B/P (MAP) Pulse Ox O2 Delivery O2 Flow Rate FiO2 04/29/25 04:56 98.0 59 20 113/42 (65) 96 98.0 04/28/25 23:01 Room Air* 0 21 Total Intake and Output 04/28/25 04/28/25 04/29/25 15:00 23:00 07:00 Intake Total 500 ml Output Total 350 ml Balance 150 ml medications Current Medications Medications Dose Ordered Sig/Raquel Route Start Time Stop Time Status Last Admin Dose Admin Clonidine HCl 0.2 mg BID PO 04/28/25 22:00 04/28/25 22:05 0.2 MG Aspirin 81 mg DAILY PO 04/29/25 10:00 Atorvastatin Calcium 10 mg HS PO 04/28/25 22:00 04/28/25 22:07 10 MG Ondansetron HCl 4 mg Q4HP PRN IV 04/28/25 14:45 04/28/25 20:54 4 MG Acetaminophen 650 mg Q6HP PRN PO 04/28/25 14:45 Nitroglycerin 0.4 mg Q5MINP PRN SL 04/28/25 14:45 Morphine Sulfate 2 mg Q30M PRN IV 04/28/25 14:45 04/28/25 20:54 2 MG Hydralazine HCl 10 mg Q6HP PRN IV 04/29/25 00:30 Examination General: Patient alert and oriented in person, place and time. Patient following commands. HEENT: Normocephalic, atraumatic, moist mucous membranes Respiratory/pulmonary: Clear lungs bilaterally, no associated crackles or wheezes. Cardiovascular: Normal heart sounds S1 and S2 with no associated murmurs Abdomen: Tenderness on palpation on the right side of abdomen, around ribs. Normal bowel sounds Extremities: There is no peripheral edema present at the lower extremities. Skin: Small Scars and scabs on all 4 extremities. Neurological: Power Right hand 2/5, left hand 4/5. laboratory and microbiology Laboratory Tests 04/29/25 05:15 04/28/25 10:46 Test 04/29/25 05:15 Range/Units Serum Glucose 100 74-106 mg/dL Problem List/Assessment/Plan Problem List/Assessment/Plan #Intractable right upper quadrant, intercostal pain due to following: #Rule out cholecystitis -CT scan shows cholelithiasis, calcification in the upper pole of the left kidney, high density left renal cysts. -MRSA negative -Pain management with ibuprofen, baclofen, morphine as needed #UTI, possible -Urine analysis showed WBC 19, bacteria positive -Started on ceftriaxone -Continue Zofran as needed #History of polysubstance abuse -UDS pending #Asymptomatic bradycardia #Poorly controlled hypertension #Hypocalcemia -Started on lisinopril. IV Hydralazine as needed #Overweight with BMI 29.6 -Lifestyle modification Goals of care discussed at bedside for more than 35 minutes Full code Plan discussed with Dr. Carballo Plan discussed with: Patient LON RODRIGUEZ RESIDENT Apr 29, 2025 10:21
[2025-04-29] MEDS: ACETAMINOPHEN 325 MG TAB PO PRN (10:38)
[2025-04-29 12:54] LABS: Alanine Aminotransferase 34.0 U/L (7-40); Albumin 3.7 g/dL (3.2-4.8); Alkaline Phosphatase 67.0 U/L (46-116); Total Protein 6.4 g/dL (5.7-8.2)
[2025-04-29 12:55] LABS: Bilirubin, Total 0.6 mg/dL (0.2-1.0)
--- NOTE | 2025-04-29 13:07 | DVH ---
Exam: CT CT AB PEL WO CON-NO ORAL OR IV History: Pain right upper quadrant abdomen, lower intercoastal Comparison Study: None Technique: Multidetector spiral CT of the abdomen and pelvis was performed from lung bases to pubic symphysis. Imaging was performed without IV contrast. Axial, coronal and sagittal multiplanar reform ats were obtained from the axial data set by the technologist. Radiation dose : Abdomen/Pelvis: CTDIvol 22.66 mGy, DLP 1269.92 mGy*cm. Findings: Evaluation of solid organs is limited due to lack of intravenous contrast use. Lung Bases: Trace bilateral pleural effusions with associated bibasilar consolidation right greater t casey left. Liver: The liver is normal in size. No focal lesions. Gallbladder and biliary Tree: Cholelithiasis noted without secondary findings of cholecystitis or neo iary obstruction. Spleen: Unremarkable Pancreas: The pancreas is grossly normal in appearance. Adrenal Glands: Unremarkable Kidneys: Calcification in the upper pole of the left kidney associated with a small cyst. High densit y cysts projecting off the left kidney measuring up to 30 mm. No hydronephrosis. Bladder: Grossly unremarkable for degree of distention. Bowel: The stomach is grossly normal in appearance. Small bowel and colon are normal in caliber and d istribution. The appendix is not visualized; however, no secondary findings of acute appendicitis mildred ntified. Nonspecific gaseous distention of bowel. Ascites: Absent Lymphadenopathy: No mesenteric, retroperitoneal or periportal lymphadenopathy. Abdominal wall and Mesentery: Unremarkable. Vasculature: Calcified atherosclerotic disease. Pelvic Organs: Unremarkable Musculoskeletal: No aggressive focal bony lesions, acute fractures or dislocation. IMPRESSION: 1. No acute abdominal or pelvic findings. Cholelithiasis. Calcification in the upper pole of the left kidney. High density left renal cysts. Consider further evaluation with MRI of the abdomen with con trast. Nonspecific gaseous distention of bowel. Trace bilateral pleural effusions with associated bib asilar atelectasis consolidation right greater than left. Consider dedicated chest CT. Radiation optimization: All CT scans at this facility use at least one of these dose optimization anuja hniques: Automated exposure control mA and/or kV adjustment per patient size (includes targeted exams where dose is matched to clinical indication) or iterative reconstruction. HS:Y
[2025-04-29 13:10] LABS: Bilirubin, Direct 0.3 mg/dL (<0.3)
[2025-04-29 14:55] LABS: COVID19 ANTIGEN SOFIA FIA NEGATIVE (NEGATIVE)
[2025-04-29 15:12] LABS: Alanine Aminotransferase 39.0 U/L (7-40); Albumin 3.8 g/dL (3.2-4.8); Alkaline Phosphatase 71.0 U/L (46-116); Bilirubin, Direct 0.2 mg/dL (<0.3); Bilirubin, Total 0.6 mg/dL (0.2-1.0); Total Protein 6.8 g/dL (5.7-8.2)
[2025-04-29] MEDS: LISINOPRIL 5 MG TAB PO SCH (15:28)
[2025-04-29] MEDS: cefTRIAXone 1GM/50ML D5W 50 ML IV SCH (15:38)
[2025-04-29] MEDS: BACLOFEN 10 MG TAB PO SCH (17:02)
[2025-04-29] MEDS: IBUPROFEN 600 MG TAB PO SCH (17:02)
[2025-04-29 17:11] LABS: Opiate Scree,Urine Neg (NEGATIVE)
[2025-04-29 17:15] LABS: Barbiturate Scree,Urine Neg (NEGATIVE)
[2025-04-29 17:16] LABS: Amphetamine Screen, Urine Pos (NEGATIVE); Benzodiazephine Screen, Urine Neg (NEGATIVE); Cannabinoid Screen, Urine Neg (NEGATIVE); Cocaine Screen, Urine Neg (NEGATIVE); Phencyclidine Screen, Urine Neg (NEGATIVE)
--- NOTE | 2025-04-29 19:52 | DVH ---
EXAM: XY R RIB XRAY REASON FOR EXAM: pain in right lower ribs TECHNIQUE: Frontal view of the chest and 2 views of the right ribs are submitted for review. COMPARISON: None FINDINGS: The cardiomediastinal silhouette is stable. There is no focal airspace disease . There is no significant pleural effusion. There is no pneumothorax. No rib fracture is identified. IMPRESSION: No rib fracture is identified.
--- NOTE | 2025-04-30 01:58 | DVHSR ---
APPROVED REPORT EXAM: Two-dimensional and M-mode echocardiogram with Doppler and color Doppler. Blood Pressure: 113/42 mmHg INDICATION Chest Pain RISK FACTORS Height: 6'0, Weight: 218 DIMENSIONS LVDd4.9 (3.8-5.7cm)LA (2D)4.4 (1.9-4.0cm)Aortic Root4.0 (2.0-3.7cm) LVDs3.6 (2.5-4.0cm)LA (MM) (1.9-4.0cm)Aortic Cusp Exc1.8 (1.5-2.0cm) EF (%) 55.0 (55-70%)Rt. Atrium3.4 (1.9-4.0cm)Asc. Aorta cm IVSd1.2 (0.7-1.1cm)RV (D)5.5 (1.8-2.4cm) PWd0.9 (0.7-1.1cm) Mitral Valve MitralMitral Stenosis E wave0.53m/sMV Mean GR.mmHg A wave0.77m/sMV Peak GR.67mmHg E/A ratio0.72D MVAcm2 DECEL [id number] 1/2 Timems Aortic Valve Aortic ValveAortic Stenosis V11.06m/Jose David Mean GR.5mmHg V21.37m/Jose David Peak GR.7mmHg LVOT Diameter2.5 (1.8-2.4cm)Doppler AVA3.80cm2 Pulmonic Valve V20.69m/s Other Information Technically limited study due to patient position. Conclusion LV EF IS 65% NORMAL VALVES NORMAL RV FUNCTION SLIGHTLY DILATED RV AND RA NO EFFUSION
[2025-04-30 07:11] LABS: Hematocrit 48.9 % (41.0-53.0); Hemoglobin 15.9 g/dL (13.5-17.5); Mean Corpuscular Hemoglobin 29.5 pg (28.0-32.0); Mean Corpuscular Volume 90.8 fL (80.0-100.0); Nucleated Red Blood Cells % 0.2 %
[2025-04-30 07:47] LABS: Alanine Aminotransferase 36 U/L (7-40); Albumin 3.8 g/dL (3.2-4.8); Alkaline Phosphatase 72 U/L (46-116); Anion Gap 9 (5-15); BUN/Creatinine Ratio 16.0 (10.0-20.0); Blood Urea Nitrogen 16 mg/dL (9-23); Calcium 9.6 mg/dL (8.7-10.4); Carbon Dioxide 23 mmol/L (20-31); Chloride 106 mmol/L (98-107); Potassium 4.5 mmol/L (3.5-5.1); Sodium 138 mmol/L (136-145); Total Protein 6.8 g/dL (5.7-8.2)
[2025-04-30 07:48] LABS: Bilirubin, Total 0.6 mg/dL (0.2-1.0); Glucose 72 mg/dL (74-106)
[2025-04-30 08:00] VITALS: PULSE 47; PULSE 51
[2025-04-30 09:00] VITALS: BP 130/76; PULSE 51; RESP 18; TEMP 98.1; O2SAT 95
[2025-04-30] MEDS: HYDROcodone-ACET 10/325MG TAB PO PRN (11:04)
--- NOTE | 2025-04-30 12:08 | DVHINCON2 ---
Date of service: Apr 30, 2025 History of Present Illness 64-year-old male with a history of CVA admitted secondary to two day history of right upper quadrant abdominal pain. Patient is a poor historian. Past Medical History CVA and hypertension Past Surgical History Denies abdominal surgeries Family History Noncontributory Social History Positive for methamphetamine Allergies: Coded Allergies: NO KNOWN ALLERGIES (Unverified , 04/08/25) Home Meds Active Scripts Acetaminophen (Acetaminophen) 500 Mg Tab, 500 MG PO Q4HP PRN, #30 TAB Prov:MIGUEL SMITH PAC 04/08/25 Ibuprofen Micronized (Ibuprofen) 800 Mg Tab, 800 MG PO Q8HP PRN, #20 TAB Prov:MIGUEL SMITH PAC 04/08/25 Clonidine Hydrochloride (Clonidine Hcl) 0.2 Mg Tab, 1 TAB PO BID, #10 TAB 0 Refills To be used if systolic pressure is above 160 or diastolic pressure is above 90. Prov:MIGUEL SMITH PAC 04/08/25 Cephalexin Monohydrate (Cephalexin) 500 Mg Cap, 500 MG PO Q6HR for 5 Days, #20 MG Prov:ELSI HIRSCH MD 02/13/25 Current Medications Current Medications Medications (Trade) Dose Ordered Sig/Raquel Route PRN Reason Start Time Stop Time Status Last Admin Lisinopril (Zestril Tablet) 10 mg DAILY PO 04/29/25 14:00 04/30/25 09:20 Ceftriaxone Sodium 50 ml @ 100 mls/hr DAILY@09 IV 04/29/25 14:15 04/30/25 09:20 Morphine Sulfate 1 mg Q6HP PRN IV SEVERE PAIN (7-10 PAIN SCALE) 04/29/25 15:45 Ibuprofen (Motrin Tablet) 600 mg BID PO 04/29/25 15:45 04/30/25 09:21 Baclofen (Liorisal Tablet) 10 mg BID PO 04/29/25 15:45 04/30/25 09:20 Acetaminophen/ Hydrocodone Bitart ([place] 10/325MG Tab) 1 tab Q6HP PRN PO MODERATE PAIN (4-6 PAIN SCALE) 04/29/25 19:30 04/30/25 11:04 Vital Signs Vital Signs Date Time Temp Pulse Resp B/P (MAP) Pulse Ox O2 Delivery O2 Flow Rate FiO2 04/30/25 09:20 130/76 04/30/25 09:00 98.1 51 18 95 98.1 04/30/25 08:01 Room Air* 0 21 Physical Exam GEN: Disheveled appearing male in no acute distress. HEENT: Normocephalic atraumatic. Moist mucous membranes. Anicteric sclerae. CV: RRR Respiratory: CTAB ABD: Bilateral upper quadrant tenderness to palpation with minimal guarding. CT of the abdomen and pelvis: Cholelithiasis without findings of acute cholecystitis Abdominal ultrasound: Pending Labs/Diagnostic Data Labs Test 04/30/25 05:55 04/29/25 15:45 04/29/25 14:46 04/29/25 12:15 Range/Units White Blood Count 10.4 4.4-10.8 10^3/uL Red Blood Count 5.39 4.5-5.90 10^6/uL Hemoglobin 15.9 13.5-17.5 g/dL Hematocrit 48.9 41.0-53.0 % Mean Corpuscular Volume 90.8 # 80.0-100.0 fL Mean Corpuscular Hemoglobin 29.5 28.0-32.0 pg Mean Corpuscular Hemoglobin Concent 32.4 32.0-36.0 g/dL Red Cell Distribution Width 14.7 H 11.8-14.3 % Platelet Count 212 140-450 10^3/uL Mean Platelet Volume 8.4 6.9-10.8 fL Neutrophils (%) (Auto) 44.8 37.0-80.0 % Lymphocytes (%) (Auto) 43.1 10.0-50.0 % Monocytes (%) (Auto) 8.3 0.0-12.0 % Eosinophils (%) (Auto) 3.2 0.0-7.0 % Basophils (%) (Auto) 0.6 0.0-2.0 % Neutrophils # (Auto) 4.7 1.6-8.6 10 ^3/uL Lymphocytes # (Auto) 4.5 0.4-5.4 10 ^3/uL Monocytes # (Auto) 0.9 0-1.3 10 ^3/uL Eosinophils # (Auto) 0.3 0-0.8 10 ^3/uL Basophils # (Auto) 0.1 0-0.2 10 ^3/uL Nucleated Red Blood Cells 0.2 % Sodium Level 138 136-145 mmol/L Potassium Level 4.5 3.5-5.1 mmol/L Chloride Level 106 98-107 mmol/L Carbon Dioxide Level 23 20-31 mmol/L Anion Gap 9 5-15 Blood Urea Nitrogen 16 9-23 mg/dL Creatinine 1.00 0.700-1.30 mg/dL Glomerular Filtration Rate Calc 84 >90 mL/min BUN/Creatinine Ratio 16.0 10.0-20.0 Serum Glucose 72 L 74-106 mg/dL Calcium Level 9.6 8.7-10.4 mg/dL Total Bilirubin 0.6 0.2-1.0 mg/dL Aspartate Amino Transferase (AST) 35 13-40 U/L Alanine Aminotransferase (ALT) 36 7-40 U/L Alkaline Phosphatase 72 46-116 U/L Total Protein 6.8 5.7-8.2 g/dL Albumin 3.8 3.2-4.8 g/dL Urine Opiates Screen Neg NEGATIVE Urine Fentanyl Screen Neg NEGATIVE Urine Barbiturates Screen Neg NEGATIVE Urine Phencyclidine Screen Neg NEGATIVE Urine Amphetamines Screen Pos NEGATIVE Urine Benzodiazepines Screen Neg NEGATIVE Urine Cocaine Screen Neg NEGATIVE Urine Cannabinoids Screen Neg NEGATIVE Direct Bilirubin 0.2 <0.3 mg/dL Influenza Type A Antigen Negative Negative Influenza Type B Antigen Negative Negative SARS-CoV-2 Antigen (Rapid) Negative NEGATIVE Test 04/29/25 08:59 04/28/25 15:25 04/28/25 11:56 04/28/25 10:46 Range/Units B-Type Natriuretic Peptide 40.42 0-100 pg/mL Urine Color Yellow Yellow Urine Clarity Turbid H Clear Urine pH 6.0 5.0-9.0 Urine Specific [place] 1.037 H 1.001-1.035 Urine Protein 1+ H Negative Urine Ketones Trace Negative Urine Blood Negative Negative /uL Urine Nitrite Negative Negative Urine Bilirubin Negative Negative Urine Urobilinogen 6 Negative mg/dL Urine Leukocyte Esterase Negative Negative /uL Urine RBC 25 0 - 3 /hpf Urine Microscopic WBC 19 H 0-3 /HPF Urine Squamous Epithelial Cells Few <5 /hpf Urine Bacteria Few H None Seen /hpf Urine Mucus Few None Seen Urine Glucose Normal Normal mg/dL Troponin I High Sensitivity 4 </=54 ng/L Triglycerides Level 66 < 150 mg/dL Cholesterol Level 157 < 200 mg/dL LDL Cholesterol 105 H < 100 mg/dL HDL Cholesterol 48 40-59 mg/dL Thyroid Stimulating Hormone (TSH) 0.83 0.55-4.78 uIU/mL Microbiology Date/Time Source Procedure Growth Status 04/29/25 02:50 Nose MRSA Screen - Final Complete Assessment 1. Chest pain. Currently being evaluated for possible cardiac etiology although his echo seems to be unremarkable. 2. Right upper quadrant abdominal pain possibly from cholecystitis. Plan/Recommendation 1. HIDA scan 2. Cardiac clearance Plan discussed with: Patient TANIKA SOLORIO MD Apr 30, 2025 12:08
--- NOTE | 2025-04-30 12:30 | DVHINCON2 ---
Date Seen: Apr 30, 2025 Referring Physician MD [place] Reason for Consultation Cardiac risk stratification History of Present Illness This is a 64-year-old man who presented to the emergency room with a chief complaint of right upper quadrant abdominal pain for two days. He has been evaluated by surgical team poor possible cholecystitis with possible upcoming surgical intervention. Cardiology consulted for cardiac risk stratification prior to intervention. The patient denies any chest pain, palpitations, diaphoresis, shortness of breath, dizziness, or syncopal events. Denies exertional angina or dyspnea on exertion. States he is able to ambulate without assistance multiple blocks at a time. States he is able to use multiple flights of stairs at a time. He underwent multiple 12 lead electrocardiograms x3 revealing a normal sinus rhythm without evidence of acute ST-T wave changes suggestive of ischemia. Serial troponin levels are negative. Significant medical history includes hypertension, history of cerebrovascular accident, methamphetamine use, and nicotine dependence. Past Medical History Past medical history reviewed. No other significant than mentioned above. Past Surgical History Past Surgical history reviewed. No other significant than mentioned above. Family History Family history reviewed. Social History UDS positive for methamphetamines. The patient admits to occasional alcohol use and smoking a pack of cigarettes every 3-4 days. Allergies: Coded Allergies: NO KNOWN ALLERGIES (Unverified , 04/08/25) Home Meds Active Scripts Acetaminophen (Acetaminophen) 500 Mg Tab, 500 MG PO Q4HP PRN, #30 TAB Prov:MIGUEL SMITH PAC 04/08/25 Ibuprofen Micronized (Ibuprofen) 800 Mg Tab, 800 MG PO Q8HP PRN, #20 TAB Prov:MIGUEL SMITH PAC 04/08/25 Clonidine Hydrochloride (Clonidine Hcl) 0.2 Mg Tab, 1 TAB PO BID, #10 TAB 0 Refills To be used if systolic pressure is above 160 or diastolic pressure is above 90. Prov:MIGUEL SMITH PAC 04/08/25 Cephalexin Monohydrate (Cephalexin) 500 Mg Cap, 500 MG PO Q6HR for 5 Days, #20 MG Prov:ELSI HIRSCH MD 02/13/25 Home Meds Home medications reviewed. Current Medications Current Medications Medications (Trade) Dose Ordered Sig/Raquel Route PRN Reason Start Time Stop Time Status Last Admin Lisinopril (Zestril Tablet) 10 mg DAILY PO 04/29/25 14:00 04/30/25 09:20 Ceftriaxone Sodium 50 ml @ 100 mls/hr DAILY@09 IV 04/29/25 14:15 04/30/25 09:20 Morphine Sulfate 1 mg Q6HP PRN IV SEVERE PAIN (7-10 PAIN SCALE) 04/29/25 15:45 Ibuprofen (Motrin Tablet) 600 mg BID PO 04/29/25 15:45 04/30/25 09:21 Baclofen (Liorisal Tablet) 10 mg BID PO 04/29/25 15:45 04/30/25 09:20 Acetaminophen/ Hydrocodone Bitart ([place] 10/325MG Tab) 1 tab Q6HP PRN PO MODERATE PAIN (4-6 PAIN SCALE) 04/29/25 19:30 04/30/25 11:04 Review of Systems Constitutional: No symptom reported Ears, Nose, & Throat: No symptom reported Eyes: No symptom reported Neurological: No symptoms reported Pulmonary/Respiratory: No symptom reported Cardiovascular: No symptom reported Gastrointestinal: Abdominal pain Genitourinary: No symptom reported Musculoskeletal: No symptom reported Skin: No symptom reported Psychiatric: No symptom reported Endocrine: No symptom reported Hemotologic/Lymphatic: No symptom reported Vital Signs Vital Signs Date Time Temp Pulse Resp B/P (MAP) Pulse Ox O2 Delivery O2 Flow Rate FiO2 04/30/25 09:20 130/76 04/30/25 09:00 98.1 51 18 95 98.1 04/30/25 08:01 Room Air* 0 21 Physical Exam General Appearance: Cooperative. Unkept. Poor historian. In no acute distress Head Exam: Normal inspection Neck Exam: Normal inspection. Non-tender. Normal alignment Pulmonary/Respiratory: Chest non-tender. Clear bilateral breath sounds Cardiovascular/Chest: Regular rate and rhythm. S1, S2. NSR. No murmurs. No JVD. Peripheral Pulses: 2+ Radial (R). 2+ Radial (L). 2+ Pedal (R). 2+ Pedal (L) Abdominal Exam: Normal bowel sounds. Soft. Nontender. No hepatospenomegaly. No masses Ankle Exam: Negative ankle edema Lower extremities: Negative lower extremity edema Neuro/Mental Status: A&O x3. Coherent but poor historian Thoughts/Psych: Normal thought pattern. Appropriate mood. Flat affect. Appearance: In no acute distress Skin Exam: Normal inspection. Normal color. Warm. Dry Labs/Diagnostic Data Labs Test 04/30/25 05:55 04/29/25 15:45 04/29/25 14:46 04/29/25 12:15 Range/Units White Blood Count 10.4 4.4-10.8 10^3/uL Red Blood Count 5.39 4.5-5.90 10^6/uL Hemoglobin 15.9 13.5-17.5 g/dL Hematocrit 48.9 41.0-53.0 % Mean Corpuscular Volume 90.8 # 80.0-100.0 fL Mean Corpuscular Hemoglobin 29.5 28.0-32.0 pg Mean Corpuscular Hemoglobin Concent 32.4 32.0-36.0 g/dL Red Cell Distribution Width 14.7 H 11.8-14.3 % Platelet Count 212 140-450 10^3/uL Mean Platelet Volume 8.4 6.9-10.8 fL Neutrophils (%) (Auto) 44.8 37.0-80.0 % Lymphocytes (%) (Auto) 43.1 10.0-50.0 % Monocytes (%) (Auto) 8.3 0.0-12.0 % Eosinophils (%) (Auto) 3.2 0.0-7.0 % Basophils (%) (Auto) 0.6 0.0-2.0 % Neutrophils # (Auto) 4.7 1.6-8.6 10 ^3/uL Lymphocytes # (Auto) 4.5 0.4-5.4 10 ^3/uL Monocytes # (Auto) 0.9 0-1.3 10 ^3/uL Eosinophils # (Auto) 0.3 0-0.8 10 ^3/uL Basophils # (Auto) 0.1 0-0.2 10 ^3/uL Nucleated Red Blood Cells 0.2 % Sodium Level 138 136-145 mmol/L Potassium Level 4.5 3.5-5.1 mmol/L Chloride Level 106 98-107 mmol/L Carbon Dioxide Level 23 20-31 mmol/L Anion Gap 9 5-15 Blood Urea Nitrogen 16 9-23 mg/dL Creatinine 1.00 0.700-1.30 mg/dL Glomerular Filtration Rate Calc 84 >90 mL/min BUN/Creatinine Ratio 16.0 10.0-20.0 Serum Glucose 72 L 74-106 mg/dL Calcium Level 9.6 8.7-10.4 mg/dL Total Bilirubin 0.6 0.2-1.0 mg/dL Aspartate Amino Transferase (AST) 35 13-40 U/L Alanine Aminotransferase (ALT) 36 7-40 U/L Alkaline Phosphatase 72 46-116 U/L Total Protein 6.8 5.7-8.2 g/dL Albumin 3.8 3.2-4.8 g/dL Urine Opiates Screen Neg NEGATIVE Urine Fentanyl Screen Neg NEGATIVE Urine Barbiturates Screen Neg NEGATIVE Urine Phencyclidine Screen Neg NEGATIVE Urine Amphetamines Screen Pos NEGATIVE Urine Benzodiazepines Screen Neg NEGATIVE Urine Cocaine Screen Neg NEGATIVE Urine Cannabinoids Screen Neg NEGATIVE Direct Bilirubin 0.2 <0.3 mg/dL Influenza Type A Antigen Negative Negative Influenza Type B Antigen Negative Negative SARS-CoV-2 Antigen (Rapid) Negative NEGATIVE Test 04/29/25 08:59 04/28/25 15:25 04/28/25 11:56 04/28/25 10:46 Range/Units B-Type Natriuretic Peptide 40.42 0-100 pg/mL Urine Color Yellow Yellow Urine Clarity Turbid H Clear Urine pH 6.0 5.0-9.0 Urine Specific [place] 1.037 H 1.001-1.035 Urine Protein 1+ H Negative Urine Ketones Trace Negative Urine Blood Negative Negative /uL Urine Nitrite Negative Negative Urine Bilirubin Negative Negative Urine Urobilinogen 6 Negative mg/dL Urine Leukocyte Esterase Negative Negative /uL Urine RBC 25 0 - 3 /hpf Urine Microscopic WBC 19 H 0-3 /HPF Urine Squamous Epithelial Cells Few <5 /hpf Urine Bacteria Few H None Seen /hpf Urine Mucus Few None Seen Urine Glucose Normal Normal mg/dL Troponin I High Sensitivity 4 </=54 ng/L Triglycerides Level 66 < 150 mg/dL Cholesterol Level 157 < 200 mg/dL LDL Cholesterol 105 H < 100 mg/dL HDL Cholesterol 48 40-59 mg/dL Thyroid Stimulating Hormone (TSH) 0.83 0.55-4.78 uIU/mL Microbiology Date/Time Source Procedure Growth Status 04/29/25 02:50 Nose MRSA Screen - Final Complete Assessment Preprocedural cardiovascular examination Possible acute cholecystitis Hypertension History of CVA Methamphetamine abuse Nicotine dependence Plan/Recommendation (Dr. Estevez) Echocardiogram revealed EF 65%. Revised cardiac risk index (Josafat criteria): 5% risk of , ID or cardiac arrest. Patient has no underlying history of congestive heart failure, coronary artery disease, and has an optimal functional capacity. Per Cardiology standpoint, the patient is at an acceptable-risk for moderate-risk surgery. There is no additional cardiac workup indicated prior to surgery. Thank you for allowing us to care for this patient. Please call with an y questions or concerns. This medical document was created using an electronic medical record system with voice recognition software and computerized dictation system. Although this document has been carefully reviewed, there might still be some phonetic and typographical errors. Occasional wrong-word or ``sound-alike substitutions may have occurred due to the inherent limitations of voice recognition software. These areas are purely typographical due to imperfections of the software progr ams and do not reflect any compromise in the patient's medical care. Please read the chart carefully and recognize, using context, where these substitutions have occurred. Plan discussed with: Patient, Other NYHA Physical activity limitations: NA Date of Service: Apr 30, 2025 Billing Provider: JANINE GONZALES Cardiology Common Codes: [id number] INP/OBS CARE (Mod) JANINE GONZALES Apr 30, 2025 12:30
[2025-04-30 13:00] VITALS: BP 120/80; PULSE 52; RESP 18; TEMP 98.1; O2SAT 99
--- NOTE | 2025-04-30 14:22 | DVH ---
Ultrasound of the gallbladder INDICATION: possible acute cholecystitis Technique: 2-D real-time ultrasound was performed with axial and sagittal images submitted for evalu ation. FINDINGS: There is a gallstone present measuring 1.1 cm. The gallbladder wall is thickened measurin g 3.1 mm. There is a positive sonographic petit's sign. The common bile duct is not well visualized. IMPRESSION: 1. Cholelithiasis with possible cholecystitis
--- NOTE | 2025-04-30 14:30 | DVHPNRES ---
Progress Note Date Seen: Apr 30, 2025 Resident Creating Document: BRIAN DYSON RESIDENT Has the PT tested + for MRSA If YES, has PT been informed?: No Medical Necessity Reason Pt with a Central, PICC or Fol: No Subjective Review of Systems PHI: Beto Valdovinos is a 64-year-old male presented to the ED with chief complaint of chest pain that started 4 days ago. His pain started in the right lower costal area. The pain is intractable, sharp, radiating to the midline of the chest. The pain is accompanied with shortness of breaths. No history of fever, nausea or vomiting, diarrhea, loss of consciousness. No history of blunt abdominal trauma or blunt thoracic trauma. ED labs: showed borderline hypocalcemia, urine analysis shows turbid urine with WBC 19, few bacteria. His head CT shows no abnormality. Chest x-ray shows no abnormality. CT abdomen shows cholelithiasis, calcification in the upper pole of the left kidney, high density left renal cysts. Patient reports recreational drug use (methamphetamine). Admission course: The patient was evaluated today at bedside, he reports he is still has abdominal pain 04/21, with a little of improvement with pain medications. Vital signs were reviewed, laboratories were reviewed WBC: 10.4, UA is positive, Echo showed 65% EF. Surgical consult was placed, Dr. Wiseman evaluated the patient and requested HIDA scan and cardiac clearance. We will follow up with the result of HIDA scan. ROS: Constitutional: Patient is in visible discomfort. HEENT: Denies changes in vision and hearing. Respiratory: Complains of shortness of breath Cardiovascular: Chest pain GI: abdominal pain. : Denies dysuria and urinary frequency. Musculoskeletal: Denies myalgias and joint pain Skin: Denies rash and pruritus. Neurological: Denies dizziness, headache, vision or hearing problem Objective vital signs Vital Sign Date Time Temp Pulse Resp B/P (MAP) Pulse Ox O2 Delivery O2 Flow Rate FiO2 04/30/25 09:20 130/76 04/30/25 09:00 98.1 51 18 95 98.1 04/30/25 08:01 Room Air* 0 21 Total Intake and Output 04/29/25 04/29/25 04/30/25 15:00 23:00 07:00 Intake Total 550 ml 500 ml Balance 550 ml 500 ml medications Current Medications Medications Dose Ordered Sig/Raquel Route Start Time Stop Time Status Last Admin Dose Admin Aspirin 81 mg DAILY PO 04/29/25 10:00 04/30/25 09:20 81 MG Atorvastatin Calcium 10 mg HS PO 04/28/25 22:00 04/29/25 21:18 10 MG Ondansetron HCl 4 mg Q4HP PRN IV 04/28/25 14:45 04/28/25 20:54 4 MG Acetaminophen 650 mg Q6HP PRN PO 04/28/25 14:45 04/29/25 10:38 650 MG Nitroglycerin 0.4 mg Q5MINP PRN SL 04/28/25 14:45 Hydralazine HCl 10 mg Q6HP PRN IV 04/29/25 12:00 Lisinopril 10 mg DAILY PO 04/29/25 14:00 04/30/25 09:20 10 MG Ceftriaxone Sodium 50 ml @ 100 mls/hr DAILY@09 IV 04/29/25 14:15 04/30/25 09:20 100 MLS/HR Morphine Sulfate 1 mg Q6HP PRN IV 04/29/25 15:45 Ibuprofen 600 mg BID PO 04/29/25 15:45 04/30/25 09:21 600 MG Baclofen 10 mg BID PO 04/29/25 15:45 04/30/25 09:20 10 MG Acetaminophen/ Hydrocodone Bitart 1 tab Q6HP PRN PO 04/29/25 19:30 04/30/25 11:04 1 TAB Examination General: Patient following commands. HEENT: Normocephalic, atraumatic, moist mucous membranes Respiratory/pulmonary: Clear lungs bilaterally, no associated crackles or wheezes. Cardiovascular: Normal heart sounds S1 and S2 with no associated murmurs Abdomen: Tenderness on palpation on the right side of abdomen, Velasco's sign is positive. Pain around right ribs. Normal bowel sounds. No distention, no rebounds Extremities: There is no peripheral edema present at the lower extremities. Skin: Small Scars and scabs on all 4 extremities. Neurological: Patient alert and oriented in person, place and time. Power Right hand 2/5, left hand 4/5 laboratory and microbiology Laboratory Tests 04/30/25 05:55 Test 04/30/25 05:55 Range/Units Serum Glucose 72 L 74-106 mg/dL Microbiology Date/Time Source Procedure Growth Status 04/29/25 02:50 Nose MRSA Screen - Final Complete Labs and/or images reviewed: Labs reviewed by me, Image(s) reviewed by me Problem List/Assessment/Plan Problem List/Assessment/Plan Problem List/Assessment/Plan #Intractable right upper quadrant, intercostal pain due to following: #Acute cholecystitis -CT scan shows cholelithiasis, calcification in the upper pole of the left kidney, high density left renal cysts. -MRSA negative -Pain management as needed -pending clearance by Cardiology to proceed with lap cholecystectomy by General surgery #UTI -Urine analysis showed WBC 19, bacteria positive -Started on ceftriaxone -Continue Zofran as needed # polysubstance use disorder Counseled on amphetamine and tobacco use cessation for 22 minutes including 14 minutes for tobacco use cessation #Asymptomatic bradycardia #Poorly controlled hypertension #Hypocalcemia -Started on lisinopril. IV Hydralazine as needed #Overweight with BMI 29.6 -Lifestyle modification Goals of care discussed with the patient for 20 minutes; Full code Plan discussed with Dr. Paz Plan discussed with: Patient Plan discussed with: Patient, Other (RN) My Orders My Orders Orders - BRIAN DYSON RESIDENT Procedure Category Date Status Time Gallbladder US 04/30/25 Taken 09:42 * Surgical Consult CONS 04/30/25 Transmitted Addendum Addendum Addendum I was physically present for the mckeon portions of the service provided to patient by THE RESIDENT. I have reviewed the documentation, discussed the case with resident and agree with the resident's documentation except as noted. Also the patient's clinical case was discussed with the patient's nurse. This medical document was created using an electronic medical record system with computerized dictation system. Although this document has been carefully reviewed, there might still be some phonetic and typographical errors. These areas are purely typographical due to imperfections of the software programs, and do not reflect any compromise in the patient's medical care. Late signature. Date of Service: Apr 30, 2025 Billing Provider: LARRY PAZ MD Common Visit Codes: [id number] INP/OBS CARE(HIGH) Secondary Visit Codes: [id number] CHNG SMOKING >10MIN (22 minutes for counseling about amphetamine and tobacco use cessation including 14 minutes for tobacco use cessation), [id number] CARE PLAN 30 MINUTES (20 minutes) BRIAN DYSON RESIDENT Apr 30, 2025 14:30 LARRY PAZ MD May 01, 2025 12:34
[2025-04-30 17:00] VITALS: BP 135/83; PULSE 47; RESP 18; TEMP 97.7; O2SAT 97
[2025-04-30 20:00] VITALS: PULSE 54; PULSE 67; RESP 16; O2SAT 95
[2025-04-30 21:00] VITALS: BP 143/88; PULSE 54; RESP 16; TEMP 98; O2SAT 95
--- NOTE | 2025-04-30 23:28 | DVHINCON2 ---
Date Seen: Apr 30, 2025 Referring Physician MD Ivone Reason for Consultation Cardiac risk stratification History of Present Illness This is a 64-year-old male with a past medical history includes hypertension, history of cerebrovascular accident, methamphetamine use, and nicotine dependence who presented to the ED with complaint of right upper quadrant abdominal pain x 2 days. Patient has been evaluated by the surgical team for poor possible cholecystitis with possible upcoming surgical intervention. Cardiology consulted for cardiac risk stratification prior to surgical intervention taking place. The patient denies any chest pain, palpitations, diaphoresis, shortness of breath, dizziness, or syncopal events. Denies exertional angina or dyspnea on exertion. States he is able to ambulate without assistance multiple blocks at a time. States he is able to use multiple flights of stairs at a time. He underwent multiple 12 lead electrocardiograms x3 revealing a normal sinus rhythm without evidence of acute ST-T wave changes suggestive of ischemia. Serial troponin levels are negative. Past Medical History Past medical history reviewed. No other significant than mentioned above. Past Surgical History Past Surgical history reviewed. No other significant than mentioned above. Allergies: Coded Allergies: NO KNOWN ALLERGIES (Unverified , 04/08/25) Home Meds Active Scripts Acetaminophen (Acetaminophen) 500 Mg Tab, 500 MG PO Q4HP PRN, #30 TAB Prov:MIGUEL SMITH PAC 04/08/25 Ibuprofen Micronized (Ibuprofen) 800 Mg Tab, 800 MG PO Q8HP PRN, #20 TAB Prov:MIGUEL SMITH PAC 04/08/25 Clonidine Hydrochloride (Clonidine Hcl) 0.2 Mg Tab, 1 TAB PO BID, #10 TAB 0 Refills To be used if systolic pressure is above 160 or diastolic pressure is above 90. Prov:MIGUEL SMITH PAC 04/08/25 Cephalexin Monohydrate (Cephalexin) 500 Mg Cap, 500 MG PO Q6HR for 5 Days, #20 MG Prov:ELSI HIRSCH MD 02/13/25 Current Medications Current Medications Medications (Trade) Dose Ordered Sig/Raquel Route PRN Reason Start Time Stop Time Status Last Admin Lisinopril (Zestril Tablet) 10 mg DAILY PO 04/29/25 14:00 04/30/25 09:20 Ceftriaxone Sodium 50 ml @ 100 mls/hr DAILY@09 IV 04/29/25 14:15 04/30/25 09:20 Morphine Sulfate 1 mg Q6HP PRN IV SEVERE PAIN (7-10 PAIN SCALE) 04/29/25 15:45 Ibuprofen (Motrin Tablet) 600 mg BID PO 04/29/25 15:45 04/30/25 09:21 Baclofen (Liorisal Tablet) 10 mg BID PO 04/29/25 15:45 04/30/25 09:20 Acetaminophen/ Hydrocodone Bitart ([place] 10/325MG Tab) 1 tab Q6HP PRN PO MODERATE PAIN (4-6 PAIN SCALE) 04/29/25 19:30 04/30/25 11:04 Review of Systems Constitutional: No symptom reported Ears, Nose, & Throat: No symptom reported Eyes: No symptom reported Neurological: No symptoms reported Pulmonary/Respiratory: No symptom reported Cardiovascular: No symptom reported Gastrointestinal: Abdominal pain Genitourinary: No symptom reported Musculoskeletal: No symptom reported Skin: No symptom reported Psychiatric: No symptom reported Endocrine: No symptom reported Hemotologic/Lymphatic: No symptom reported Vital Signs Vital Signs Date Time Temp Pulse Resp B/P (MAP) Pulse Ox O2 Delivery O2 Flow Rate FiO2 04/30/25 09:20 130/76 04/30/25 09:00 98.1 51 18 95 98.1 04/30/25 08:01 Room Air* 0 21 Physical Exam GENERAL: Alert and oriented x 3. No acute distress. Unkept. EYES: PERRL, EOMI. Anicteric. HENT: Moist mucous membranes. LUNGS: Clear to auscultation bilaterally. CARDIOVASCULAR: Regular rate and rhythm. ABDOMEN: Soft, nontender and nondistended. EXTREMITIES: No edema. NEUROLOGIC: No focal neurological deficits. SKIN: Warm, dry. Labs/Diagnostic Data Labs Test 04/30/25 05:55 04/29/25 15:45 04/29/25 14:46 04/29/25 12:15 Range/Units White Blood Count 10.4 4.4-10.8 10^3/uL Red Blood Count 5.39 4.5-5.90 10^6/uL Hemoglobin 15.9 13.5-17.5 g/dL Hematocrit 48.9 41.0-53.0 % Mean Corpuscular Volume 90.8 # 80.0-100.0 fL Mean Corpuscular Hemoglobin 29.5 28.0-32.0 pg Mean Corpuscular Hemoglobin Concent 32.4 32.0-36.0 g/dL Red Cell Distribution Width 14.7 H 11.8-14.3 % Platelet Count 212 140-450 10^3/uL Mean Platelet Volume 8.4 6.9-10.8 fL Neutrophils (%) (Auto) 44.8 37.0-80.0 % Lymphocytes (%) (Auto) 43.1 10.0-50.0 % Monocytes (%) (Auto) 8.3 0.0-12.0 % Eosinophils (%) (Auto) 3.2 0.0-7.0 % Basophils (%) (Auto) 0.6 0.0-2.0 % Neutrophils # (Auto) 4.7 1.6-8.6 10 ^3/uL Lymphocytes # (Auto) 4.5 0.4-5.4 10 ^3/uL Monocytes # (Auto) 0.9 0-1.3 10 ^3/uL Eosinophils # (Auto) 0.3 0-0.8 10 ^3/uL Basophils # (Auto) 0.1 0-0.2 10 ^3/uL Nucleated Red Blood Cells 0.2 % Sodium Level 138 136-145 mmol/L Potassium Level 4.5 3.5-5.1 mmol/L Chloride Level 106 98-107 mmol/L Carbon Dioxide Level 23 20-31 mmol/L Anion Gap 9 5-15 Blood Urea Nitrogen 16 9-23 mg/dL Creatinine 1.00 0.700-1.30 mg/dL Glomerular Filtration Rate Calc 84 >90 mL/min BUN/Creatinine Ratio 16.0 10.0-20.0 Serum Glucose 72 L 74-106 mg/dL Calcium Level 9.6 8.7-10.4 mg/dL Total Bilirubin 0.6 0.2-1.0 mg/dL Aspartate Amino Transferase (AST) 35 13-40 U/L Alanine Aminotransferase (ALT) 36 7-40 U/L Alkaline Phosphatase 72 46-116 U/L Total Protein 6.8 5.7-8.2 g/dL Albumin 3.8 3.2-4.8 g/dL Urine Opiates Screen Neg NEGATIVE Urine Fentanyl Screen Neg NEGATIVE Urine Barbiturates Screen Neg NEGATIVE Urine Phencyclidine Screen Neg NEGATIVE Urine Amphetamines Screen Pos NEGATIVE Urine Benzodiazepines Screen Neg NEGATIVE Urine Cocaine Screen Neg NEGATIVE Urine Cannabinoids Screen Neg NEGATIVE Direct Bilirubin 0.2 <0.3 mg/dL Influenza Type A Antigen Negative Negative Influenza Type B Antigen Negative Negative SARS-CoV-2 Antigen (Rapid) Negative NEGATIVE Test 04/29/25 08:59 04/28/25 15:25 04/28/25 11:56 04/28/25 10:46 Range/Units B-Type Natriuretic Peptide 40.42 0-100 pg/mL Urine Color Yellow Yellow Urine Clarity Turbid H Clear Urine pH 6.0 5.0-9.0 Urine Specific [place] 1.037 H 1.001-1.035 Urine Protein 1+ H Negative Urine Ketones Trace Negative Urine Blood Negative Negative /uL Urine Nitrite Negative Negative Urine Bilirubin Negative Negative Urine Urobilinogen 6 Negative mg/dL Urine Leukocyte Esterase Negative Negative /uL Urine RBC 25 0 - 3 /hpf Urine Microscopic WBC 19 H 0-3 /HPF Urine Squamous Epithelial Cells Few <5 /hpf Urine Bacteria Few H None Seen /hpf Urine Mucus Few None Seen Urine Glucose Normal Normal mg/dL Troponin I High Sensitivity 4 </=54 ng/L Triglycerides Level 66 < 150 mg/dL Cholesterol Level 157 < 200 mg/dL LDL Cholesterol 105 H < 100 mg/dL HDL Cholesterol 48 40-59 mg/dL Thyroid Stimulating Hormone (TSH) 0.83 0.55-4.78 uIU/mL Microbiology Date/Time Source Procedure Growth Status 04/29/25 02:50 Nose MRSA Screen - Final Complete Assessment Preprocedural cardiovascular examination. Possible acute cholecystitis. Hypertension. History of CVA. Methamphetamine abuse. Nicotine dependence. Plan/Recommendation I agree with your ongoing assessment and care of plan. Patient has been seen by Yocasta García NP on my behalf, her and I discussed the plan with the patient. Echocardiogram revealed EF 65%. Revised cardiac risk index (Josafat criteria): 5% risk of , MA or cardiac arrest. Patient has no underlying history of congestive heart failure, coronary artery disease, and has an optimal functional capacity. Per Cardiology standpoint, the patient is at an acceptable-risk for moderate-risk surgery. There is no additional cardiac workup indicated prior to surgery. Additional plan as per the hospital course. Plan discussed with: Patient NYHA Physical activity limitations: NA Date of Service: Apr 30, 2025 Billing Provider: RAMSES PAUL MD Cardiology Common Codes: 28700-CTCGHND INP/OBS CARE (High) RAMSES PAUL MD Apr 30, 2025 13:01
[2025-05-01] VITALS (9 sets, daily range): BP systolic 133–166; BP diastolic 70–98; PULSE 43–56; RESP 17–20; TEMP 97.9–98.5; O2SAT 92–99
[2025-05-01 07:18] LABS: Hematocrit 45.0 % (41.0-53.0); Hemoglobin 15.3 g/dL (13.5-17.5); Mean Corpuscular Hemoglobin 29.4 pg (28.0-32.0); Mean Corpuscular Volume 86.5 fL (80.0-100.0); Nucleated Red Blood Cells % 0.1 %
[2025-05-01 07:34] LABS: INR 1.06 (0.9-1.15); Partial Thromboplastin Time 29.6 SEC (24.5-34.5); Prothrombin Time 11.2 sec (9.3-11.8)
[2025-05-01 07:39] LABS: Alanine Aminotransferase 37 U/L (7-40); Albumin 3.8 g/dL (3.2-4.8); Alkaline Phosphatase 75 U/L (46-116); Anion Gap 7 (5-15); BUN/Creatinine Ratio 17.4 (10.0-20.0); Blood Urea Nitrogen 15 mg/dL (9-23); Calcium 9.3 mg/dL (8.7-10.4); Carbon Dioxide 24 mmol/L (20-31); Glucose 88 mg/dL (74-106); Potassium 4.0 mmol/L (3.5-5.1); Sodium 138 mmol/L (136-145); Total Protein 6.7 g/dL (5.7-8.2)
[2025-05-01 07:40] LABS: Bilirubin, Total 0.6 mg/dL (0.2-1.0)
[2025-05-01 07:44] LABS: Chloride 107 mmol/L (98-107)
--- NOTE | 2025-05-01 10:05 | DVHPN2 ---
Progress Note - Dictate Date Seen: May 01, 2025 Has the PT tested + for MRSA If YES, has PT been informed?: No Medical Necessity Reason Pt with a Central, PICC or Fol: No Subjective E: no major events o/n. still c/o abd pain. vital signs Vital Sign Date Time Temp Pulse Resp B/P (MAP) Pulse Ox O2 Delivery O2 Flow Rate FiO2 05/01/25 09:23 119/69 05/01/25 08:07 Room Air* 0 21 05/01/25 05:00 98.1 50 20 94 98.1 Total Intake and Output 04/30/25 04/30/25 05/01/25 15:00 23:00 07:00 Intake Total 50 ml 600 ml 250 ml Output Total 600 ml 200 ml Balance 50 ml 0 ml 50 ml medications Current Medications Medications Dose Ordered Sig/Raquel Route Start Time Stop Time Status Last Admin Dose Admin Aspirin 81 mg DAILY PO 04/29/25 10:00 05/01/25 09:22 81 MG Atorvastatin Calcium 10 mg HS PO 04/28/25 22:00 04/30/25 21:17 10 MG Ondansetron HCl 4 mg Q4HP PRN IV 04/28/25 14:45 04/28/25 20:54 4 MG Acetaminophen 650 mg Q6HP PRN PO 04/28/25 14:45 04/29/25 10:38 650 MG Nitroglycerin 0.4 mg Q5MINP PRN SL 04/28/25 14:45 Hydralazine HCl 10 mg Q6HP PRN IV 04/29/25 12:00 Lisinopril 10 mg DAILY PO 04/29/25 14:00 05/01/25 09:23 10 MG Ceftriaxone Sodium 50 ml @ 100 mls/hr DAILY@09 IV 04/29/25 14:15 05/01/25 09:21 100 MLS/HR Morphine Sulfate 1 mg Q6HP PRN IV 04/29/25 15:45 Ibuprofen 600 mg BID PO 04/29/25 15:45 05/01/25 09:22 600 MG Baclofen 10 mg BID PO 04/29/25 15:45 05/01/25 09:22 10 MG Acetaminophen/ Hydrocodone Bitart 1 tab Q6HP PRN PO 04/29/25 19:30 04/30/25 11:04 1 TAB objective GEN: NAD ABD: RUQ TTP with min guarding. laboratory and microbiology Laboratory Tests 05/01/25 06:33 Test 05/01/25 06:33 Range/Units Serum Glucose 88 74-106 mg/dL Assessment/Plan A: 1. cholecystitis P: 1. cleared by cardiology. low cardiac risk 2. cholecystectomy tomorrow. Plan discussed with: Patient TANIKA SOLORIO MD May 01, 2025 10:05
[2025-05-01] MEDS: SODIUM CHLORIDE 0.9% 1,000 ML IV SCH (10:15)
--- NOTE | 2025-05-01 17:28 | DVHPNRES ---
Progress Note Date Seen: May 01, 2025 Resident Creating Document: LON RODRIGUEZ RESIDENT Has the PT tested + for MRSA If YES, has PT been informed?: No Medical Necessity Reason Pt with a Central, PICC or Fol: No Subjective Review of Systems Beto Kwan is a 64-year-old male presented to the ED with chief complaint of chest pain that started 4 days ago. His pain started in the right lower costal area. The pain is intractable, sharp, radiating to the midline of the chest. The pain is accompanied with shortness of breaths. No history of fever, nausea or vomiting, diarrhea, loss of consciousness. No history of blunt abdominal trauma or blunt thoracic trauma. 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 After the surgery, he was left with deficit, more prominent on the right side of the body. His labs show borderline hypocalcemia. Urine analysis shows turbid urine with WBC 19, few bacteria. His head CT shows no abnormality. Chest x-ray shows no abnormality. CT abdomen shows cholelithiasis, calcification in the upper pole of the left kidney, high density left renal cysts. Surgical consult was placed, advised HIDA scan. An echo was done, revealing 65% ejection fraction, Cardiology cleared him for procedure. Social history: No alcohol use, smokes 2 cigarettes a day, recreational drug use (methamphetamine), poor hygiene ROS: Constitutional: Patient is in visible discomfort. HEENT: Denies changes in vision and hearing. Respiratory: Complains of shortness of breath Cardiovascular: Denies chest pain, palpitations. GI: Intractable right upper quadrant, rating 11/10. : Denies dysuria and urinary frequency. Musculoskeletal: Denies myalgias and joint pain Skin: Denies rash and pruritus. Neurological: Denies dizziness, headache, vision or hearing problems Patient was examined at bedside today. Continues to complain of pain in right upper quadrant abdomen. He rates pain 11/10. His vital signs are stable today. Labs are WNL. UA shows turbid urine, WBCs 19, bacteria few. Cardiology cleared for moderate risk surgery and will be taken for laparoscopic cholecystectomy tomorrow. We will continue monitoring and managing. Objective vital signs Vital Sign Date Time Temp Pulse Resp B/P (MAP) Pulse Ox O2 Delivery O2 Flow Rate FiO2 05/01/25 16:55 97.9 52 18 139/93 (108) 96 97.9 05/01/25 08:07 Room Air* 0 21 Total Intake and Output 04/30/25 04/30/25 05/01/25 15:00 23:00 07:00 Intake Total 50 ml 600 ml 250 ml Output Total 600 ml 200 ml Balance 50 ml 0 ml 50 ml medications Current Medications Medications Dose Ordered Sig/Raquel Route Start Time Stop Time Status Last Admin Dose Admin Aspirin 81 mg DAILY PO 04/29/25 10:00 05/01/25 09:22 81 MG Atorvastatin Calcium 10 mg HS PO 04/28/25 22:00 04/30/25 21:17 10 MG Ondansetron HCl 4 mg Q4HP PRN IV 04/28/25 14:45 04/28/25 20:54 4 MG Acetaminophen 650 mg Q6HP PRN PO 04/28/25 14:45 04/29/25 10:38 650 MG Nitroglycerin 0.4 mg Q5MINP PRN SL 04/28/25 14:45 Hydralazine HCl 10 mg Q6HP PRN IV 04/29/25 12:00 Lisinopril 10 mg DAILY PO 04/29/25 14:00 05/01/25 09:23 10 MG Ceftriaxone Sodium 50 ml @ 100 mls/hr DAILY@09 IV 04/29/25 14:15 05/01/25 09:21 100 MLS/HR Morphine Sulfate 1 mg Q6HP PRN IV 04/29/25 15:45 Baclofen 10 mg BID PO 04/29/25 15:45 05/01/25 09:22 10 MG Acetaminophen/ Hydrocodone Bitart 1 tab Q6HP PRN PO 04/29/25 19:30 05/01/25 10:53 1 TAB Sodium Chloride 1,000 ml @ 75 mls/hr [id number] IV 05/01/25 10:15 05/01/25 10:15 75 MLS/HR Examination General: Patient alert and oriented in person, place and time. Patient following commands. HEENT: Normocephalic, atraumatic, moist mucous membranes, poor hygiene. Respiratory/pulmonary: Clear lungs bilaterally, vesicular murmurs present in almost all lung man, no associated crackles or wheezes. Cardiovascular: Normal heart sounds S1 and S2 with no associated murmurs Abdomen: Tenderness in right upper quadrant on light palpation. Reducible umbilical hernia. Extremities: There is no peripheral edema present at the lower extremities. Peripheral Pulses: 3+ Radial (R). 3+ Radial (L). 3+ Dorsalis pedis (R). 3+ Dorsalis pedis(L) Skin: Small Scars and scabs on all 4 extremities. Neurological: Power Right hand 2/5, left hand 4/5 laboratory and microbiology Laboratory Tests 05/01/25 06:33 Test 05/01/25 06:33 Range/Units Serum Glucose 88 74-106 mg/dL Microbiology Date/Time Source Procedure Growth Status 04/29/25 02:50 Nose MRSA Screen - Final Complete Labs and/or images reviewed: Labs reviewed by me, Image(s) reviewed by me Problem List/Assessment/Plan Problem List/Assessment/Plan #Intractable right upper quadrant, intercostal pain due to following: #Cholelithiasis, Rule out cholecystitis -CT scan shows cholelithiasis, calcification in the upper pole of the left kidney, high density left renal cysts. -Ultrasound shows cholelithiasis with possible cholecystitis -MRSA negative -Pain management with ibuprofen, baclofen, morphine as needed -Surgery consulted, laparoscopic cholecystectomy tomorrow. Cardiology cleared for moderate risk surgery. #UTI, possible -Urine analysis showed WBC 19, bacteria positive -Continue on ceftriaxone -Continue Zofran as needed #History of polysubstance abuse -Amphetamine on tox screen positive #Asymptomatic bradycardia #Poorly controlled hypertension #Hypocalcemia -Continue on lisinopril. IV Hydralazine as needed #Overweight with BMI 29.6 -Lifestyle modification NPO after midnight for laparoscopic cholecystectomy Plan discussed with Dr. Paz Plan discussed with: Patient, Other (Nurse) Addendum Addendum Addendum I was physically present for the mckeon portions of the service provided to patient by THE RESIDENT. I have reviewed the documentation, discussed the case with resident and agree with the resident's documentation except as noted. Also the patient's clinical case was discussed with the patient's nurse. This medical document was created using an electronic medical record system with computerized dictation system. Although this document has been carefully reviewed, there might still be some phonetic and typographical errors. These areas are purely typographical due to imperfections of the software programs, and do not reflect any compromise in the patient's medical care. Late signature. Date of Service: May 01, 2025 Billing Provider: LARRY PAZ MD Common Visit Codes: [id number] INP/OBS CARE(HIGH) LON RODRIGUEZ RESIDENT May 01, 2025 17:28 LARRY PAZ MD May 02, 2025 08:20
[2025-05-01] MEDS: MORPHINE SULFATE INJ 2 MG/ml SYRG IV PRN (20:18)
[2025-05-01] MEDS: hydrALAZINE HCL 20 MG/ML VL IV PRN (21:48)
--- NOTE | 2025-05-01 22:56 | DVHPN2 ---
Progress Note - Dictate Date Seen: May 01, 2025 Has the PT tested + for MRSA If YES, has PT been informed?: No Medical Necessity Reason Pt with a Central, PICC or Fol: No Subjective Patient was seen and evaluated in follow up. Patient is complaining of abdominal pain. Gallbladder US shows cholelithiasis with possible cholecystitis. CBC and CMP are unremarkable. Telemetry reviewed. vital signs Vital Sign Date Time Temp Pulse Resp B/P (MAP) Pulse Ox O2 Delivery O2 Flow Rate FiO2 05/01/25 16:55 97.9 52 18 139/93 (108) 96 97.9 05/01/25 08:07 Room Air* 0 21 Total Intake and Output 04/30/25 04/30/25 05/01/25 15:00 23:00 07:00 Intake Total 50 ml 600 ml 250 ml Output Total 600 ml 200 ml Balance 50 ml 0 ml 50 ml medications Current Medications Medications Dose Ordered Sig/Raquel Route Start Time Stop Time Status Last Admin Dose Admin Aspirin 81 mg DAILY PO 04/29/25 10:00 05/01/25 09:22 81 MG Atorvastatin Calcium 10 mg HS PO 04/28/25 22:00 04/30/25 21:17 10 MG Ondansetron HCl 4 mg Q4HP PRN IV 04/28/25 14:45 04/28/25 20:54 4 MG Acetaminophen 650 mg Q6HP PRN PO 04/28/25 14:45 04/29/25 10:38 650 MG Nitroglycerin 0.4 mg Q5MINP PRN SL 04/28/25 14:45 Hydralazine HCl 10 mg Q6HP PRN IV 04/29/25 12:00 Lisinopril 10 mg DAILY PO 04/29/25 14:00 05/01/25 09:23 10 MG Ceftriaxone Sodium 50 ml @ 100 mls/hr DAILY@09 IV 04/29/25 14:15 05/01/25 09:21 100 MLS/HR Morphine Sulfate 1 mg Q6HP PRN IV 04/29/25 15:45 Baclofen 10 mg BID PO 04/29/25 15:45 05/01/25 09:22 10 MG Acetaminophen/ Hydrocodone Bitart 1 tab Q6HP PRN PO 04/29/25 19:30 05/01/25 10:53 1 TAB Sodium Chloride 1,000 ml @ 75 mls/hr [id number] IV 05/01/25 10:15 05/01/25 10:15 75 MLS/HR objective GENERAL: Alert and oriented x 3. No acute distress. Unkept. EYES: PERRL, EOMI. Anicteric. HENT: Moist mucous membranes. LUNGS: Clear to auscultation bilaterally. CARDIOVASCULAR: Regular rate and rhythm. ABDOMEN: Soft, nontender and nondistended. EXTREMITIES: No edema. NEUROLOGIC: No focal neurological deficits. SKIN: Warm, dry. laboratory and microbiology Laboratory Tests 05/01/25 06:33 Test 05/01/25 06:33 Range/Units Serum Glucose 88 74-106 mg/dL Problem List Preprocedural cardiovascular examination. Possible acute cholecystitis. Hypertension. History of CVA. Methamphetamine abuse. Nicotine dependence. Assessment/Plan Continued all current supportive medical care. IV antibiotics as ordered. Lisinopril. IV Hydralazine for SBP > 160. Aspirin. Nitro SL. [place] for pain management. Additional plan as per the hospital course. Plan discussed with: Patient RAMSES PAUL MD May 01, 2025 19:30
[2025-05-02] VITALS (8 sets, daily range): BP systolic 128–159; BP diastolic 71–98; PULSE 60–95; RESP 12–20; TEMP 97.6–98.7; O2SAT 94–98
[2025-05-02 07:52] LABS: Hematocrit 48.3 % (41.0-53.0); Hemoglobin 16.3 g/dL (13.5-17.5); Mean Corpuscular Hemoglobin 29.5 pg (28.0-32.0); Mean Corpuscular Volume 87.4 fL (80.0-100.0); Nucleated Red Blood Cells % 0.4 %
[2025-05-02 08:16] LABS: Albumin 4.2 g/dL (3.2-4.8); Alkaline Phosphatase 88 U/L (46-116); Calcium 9.8 mg/dL (8.7-10.4); Carbon Dioxide 22 mmol/L (20-31); Chloride 105 mmol/L (98-107); Glucose 88 mg/dL (74-106); Potassium 4.4 mmol/L (3.5-5.1)
[2025-05-02 08:17] LABS: Anion Gap 12 (5-15); BUN/Creatinine Ratio 15.9 (10.0-20.0); Bilirubin, Total 0.6 mg/dL (0.2-1.0); Blood Urea Nitrogen 14 mg/dL (9-23); Sodium 139 mmol/L (136-145); Total Protein 7.2 g/dL (5.7-8.2)
[2025-05-02 08:18] LABS: Alanine Aminotransferase 41 U/L (7-40)
[2025-05-02] MEDS ORDERED: HYDROmorphone HCL 2 MG/ML VL/or syr ONE (10:17)
[2025-05-02] MEDS ORDERED: KETAMINE 50mg/ML 1ml syringe ONE (10:17)
[2025-05-02] MEDS ORDERED: fentaNYL CITRATE 100 MCG/2 ML VL ONE (10:17)
[2025-05-02] MEDS ORDERED: MIDAZOLAM HCL 2MG/2ML 2ml VIAL (1mg/ml) ONE (10:17)
[2025-05-02] MEDS ORDERED: LIDOCAINE 1% INJ PF 5ML AMP ONE (10:19)
[2025-05-02] MEDS ORDERED: ONDANSETRON HCL 4 MG/2 ML VIAL ONE (10:19)
[2025-05-02] MEDS ORDERED: SODIUM CHLORIDE LOCK 10 ML ONE (10:19)
[2025-05-02] MEDS ORDERED: PROPOFOL 10 MG/ML 20 ML IV ONE ×2 (10:19→11:24)
[2025-05-02] MEDS ORDERED: ROCURONIUM 10MG/ML 10ML VIAL IV ONE (10:19)
[2025-05-02] MEDS: BUPIVACAINE HCL 0.25% P/F 10 ML VIAL ONE (10:53)
[2025-05-02] MEDS ORDERED: MORPHINE SULFATE 4 MG/ML SYR/VIAL IV PRN (11:00)
[2025-05-02] MEDS ORDERED: MORPHINE SULFATE INJ 2 MG/ml SYRG IV PRN (11:00)
[2025-05-02] MEDS: METOCLOPRAMIDE HCL 5MG/ml INJ 2ml VIAL IV ONE (11:00)
[2025-05-02] MEDS ORDERED: HYDROmorphone HCL 2 MG/ML VL/or syr IV PRN ×2 (11:00)
[2025-05-02] MEDS: KETOROLAC TROMETH 30 MG/ML 1ML VIAL IV ONE (11:00)
[2025-05-02] MEDS: ceFAZolin 2 GM/D5W50ml 50 ML IV ONE (11:15)
[2025-05-02] MEDS ORDERED: SUGAMMADEX 200mg/2ml Vial (100MG/ML) IV ONE (11:42)
[2025-05-02] MEDS: LIDOCAINE W/ EPINEPHRINE 1% 20ML VIAL ONE (12:25)
--- NOTE | 2025-05-02 12:40 | DVHOP2 ---
Operative Report - 2 Report Details Date: 05/02/25 Preop Diagnosis: 1. Acute cholecystitis Postop Diagnosis: 1. Same Surgeon: Tanika Wiseman MD Pta: None Anesthesiologist: Dr. Rutherford Anesthesia: General, Local Consent: The surgery and its risks including but not limited to infection, bleeding requiring possible blood transfusion with the risk of hepatitis or HIV infection, possible open surgery, possible open surgery, possible cystic duct leak or retained common bile duct stone requiring further intervention such as an ERCP, possible perioperative CO or stroke were explained to the patient. All questions were answered to his satisfaction. He expressed verbal understanding and wished to proceed with the surgery. Complications: None Estimated Blood Loss: 100 mL Fluids: 1100 mL Name of Procedure Performed Laparoscopic cholecystectomy Procedure Details Procedure Details: After induction of general anesthesia, patient's abdomen was prepped and draped in standard surgical fashion. A small supraumbilical incision was made and this incision was taken through the abdominal wall down to the fascia which was opened sharply. Peritoneum was then bluntly divided gaining access to the intra-abdominal cavity. Interrupted 0 Vicryl sutures were placed through the fascial incision and using an open technique, Rozina trocar was introduced and secured using the Vicryl sutures. Abdomen was then insufflated to 15 mmHg and camera was inserted. Visual examination of the intestine under the fascial incision appeared normal without injury. Under direct visualization a 12 mm bladeless trocar was placed in the epigastric region and two additional 5 mm bladeless trocars were placed in the right upper quadrant all under direct visualization. Examination of the right upper quadrant revealed a very distended and large gallbladder. An endo needle was used to decompress the gallbladder with bilious fluid aspirated from the gallbladder lumen. Once the gallbladder was decompressed it was grasped and retracted in a cephalad direction. Infundibulum was retracted laterally and careful blunt dissection was performed to identify the cystic duct which appeared slightly dilated. Cystic duct appeared slightly dilated and it appeared to be too big to be clipped with a Endoclip. A 45 mm endo stapler was used to staple across the gallbladder cystic duct junction without complication. The cystic artery was located just above the cystic duct and this was clipped and divided using Endoclips without complication. Gallbladder was then removed from the liver bed using electrocautery. There was no bile or stone spillage during the maneuver. Gallbladder was then removed from the abdominal cavity using an endo pouch bag and sent off the surgical field. Abdomen was then re-insufflated. Hemostasis in the liver bed was achieved using electrocautery. Right upper quadrant was then well irrigated until fluid was clear. Trocars were then removed under direct visualization as the abdomen was deflated. Additional interrupted 0 Vicryl sutures were placed through the supraumbilical fascial incision and all sutures were tied down closing off the supraumbilical fascia. Surgical sites were irrigated injected with 20 mL of 1% lidocaine with epinephrine. Skin incisions were closed using 4-0 Monocryl sutures in subcuticular fashion. Surgical sites were cleaned and dried and dressings were applied. Sponge, needle, instrument count at the end of the case were reported to be correct by the nursing staff. The patient tolerated procedure well and was awakened, extubated and transferred to recovery in stable condition. Specimen: Specimen: Gallbladder Condition Stable Disposition Still a Patient TANIKA WISEMAN MD May 02, 2025 12:40
--- NOTE | 2025-05-02 13:37 | DVHPNRES ---
Progress Note Date Seen: May 02, 2025 Resident Creating Document: LON RODRIGUEZ RESIDENT Has the PT tested + for MRSA If YES, has PT been informed?: No Medical Necessity Reason Pt with a Central, PICC or Fol: No Subjective Review of Systems Beto Kwan is a 64-year-old male presented to the ED with chief complaint of chest pain that started 4 days ago. His pain started in the right lower costal area. The pain is intractable, sharp, radiating to the midline of the chest. The pain is accompanied with shortness of breaths. No history of fever, nausea or vomiting, diarrhea, loss of consciousness. No history of blunt abdominal trauma or blunt thoracic trauma. 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 After the surgery, he was left with deficit, more prominent on the right side of the body. His labs show borderline hypocalcemia. Urine analysis shows turbid urine with WBC 19, few bacteria. His head CT shows no abnormality. Chest x-ray shows no abnormality. CT abdomen shows cholelithiasis, calcification in the upper pole of the left kidney, high density left renal cysts. Surgical consult was placed, advised HIDA scan. An echo was done, revealing 65% ejection fraction, Cardiology cleared him for procedure. Cardiology cleared for moderate risk surgery and will be taken for laparoscopic cholecystectomy. Labs WNL. Social history: No alcohol use, smokes 2 cigarettes a day, recreational drug use (methamphetamine), poor hygiene 05/02/25: Patient was examined at bedside today. Continues to complain of pain in right upper quadrant abdomen. He rates pain 11/10. His vital signs are stable today. Labs are WNL. UA shows turbid urine, WBCs 19, bacteria few. tomorrow. We will continue monitoring and managing. ROS: Constitutional: Patient is in visible discomfort. HEENT: Denies changes in vision and hearing. Respiratory: Complains of shortness of breath Cardiovascular: Denies chest pain, palpitations. GI: Intractable right upper quadrant, rating 11/10. : Denies dysuria and urinary frequency. Musculoskeletal: Denies myalgias and joint pain Skin: Denies rash and pruritus. Neurological: Denies dizziness, headache, vision or hearing problems Objective vital signs Vital Sign Date Time Temp Pulse Resp B/P (MAP) Pulse Ox O2 Delivery O2 Flow Rate FiO2 05/02/25 13:15 Nasal Cannula 2.0 93 05/02/25 12:37 68 12 98 05/02/25 12:37 97.9 149/60 (89) 97.9 Total Intake and Output 05/01/25 05/01/25 05/02/25 15:00 23:00 07:00 Intake Total 50 ml 1275 ml 1800 ml Output Total 400 ml 2400 ml Balance 50 ml 875 ml -600 ml medications Current Medications Medications Dose Ordered Sig/Raquel Route Start Time Stop Time Status Last Admin Dose Admin Aspirin 81 mg DAILY PO 04/29/25 10:00 05/01/25 09:22 81 MG Atorvastatin Calcium 10 mg HS PO 04/28/25 22:00 05/01/25 21:48 10 MG Ondansetron HCl 4 mg Q4HP PRN IV 04/28/25 14:45 04/28/25 20:54 4 MG Acetaminophen 650 mg Q6HP PRN PO 04/28/25 14:45 04/29/25 10:38 650 MG Nitroglycerin 0.4 mg Q5MINP PRN SL 04/28/25 14:45 Hydralazine HCl 10 mg Q6HP PRN IV 04/29/25 12:00 05/01/25 21:48 10 MG Lisinopril 10 mg DAILY PO 04/29/25 14:00 05/02/25 09:47 10 MG Ceftriaxone Sodium 50 ml @ 100 mls/hr DAILY@09 IV 04/29/25 14:15 05/02/25 09:47 100 MLS/HR Morphine Sulfate 1 mg Q6HP PRN IV 04/29/25 15:45 05/01/25 20:18 1 MG Baclofen 10 mg BID PO 04/29/25 15:45 05/02/25 09:47 10 MG Acetaminophen/ Hydrocodone Bitart 1 tab Q6HP PRN PO 04/29/25 19:30 05/01/25 10:53 1 TAB Sodium Chloride 1,000 ml @ 75 mls/hr [id number] IV 05/01/25 10:15 05/01/25 22:56 75 MLS/HR Morphine Sulfate 2 mg Q4H PRN IV 05/02/25 11:00 05/02/25 15:01 Examination General: Patient alert and oriented in person, place and time. Patient following commands. HEENT: Normocephalic, atraumatic, moist mucous membranes, poor hygiene. Respiratory/pulmonary: Clear lungs bilaterally, vesicular murmurs present in almost all lung man, no associated crackles or wheezes. Cardiovascular: Normal heart sounds S1 and S2 with no associated murmurs Abdomen: Tenderness in right upper quadrant on light palpation. Reducible umbilical hernia. Extremities: There is no peripheral edema present at the lower extremities. Peripheral Pulses: 3+ Radial (R). 3+ Radial (L). 3+ Dorsalis pedis (R). 3+ Dorsalis pedis(L) Skin: Small Scars and scabs on all 4 extremities. Neurological: Power Right hand 2/5, left hand 4/5 laboratory and microbiology Laboratory Tests 05/02/25 06:21 Test 05/02/25 06:21 Range/Units Serum Glucose 88 74-106 mg/dL Microbiology Date/Time Source Procedure Growth Status 04/29/25 02:50 Nose MRSA Screen - Final Complete Problem List/Assessment/Plan Problem List/Assessment/Plan #Intractable right upper quadrant, intercostal pain due to following: #Cholelithiasis, Rule out cholecystitis -CT scan shows cholelithiasis, calcification in the upper pole of the left kidney, high density left renal cysts. -MRSA negative -Ultrasound shows cholelithiasis with possible cholecystitis -Pain management with ibuprofen, baclofen, morphine as needed -Surgery performed laparoscopic cholecystectomy today after Cardiology clearance. -Will continue to monitor. #UTI, possible -Urine analysis showed WBC 19, bacteria positive -Continue on ceftriaxone -Continue Zofran as needed #History of polysubstance abuse -Amphetamine on tox screen positive #Asymptomatic bradycardia #Poorly controlled hypertension #Hypocalcemia -Continue on lisinopril. IV Hydralazine as needed #Overweight with BMI 29.6 -Lifestyle modification Goals of care discussed with patient at bedside for > 25 minutes Full Code Plan discussed with Dr. Carballo Plan discussed with: Patient LON RODRIGUEZ RESIDENT May 02, 2025 13:37
[2025-05-02] MEDS ORDERED: D5W/SOD CHL 0.45% 1,000 ML IV SCH (17:45)
[2025-05-02] MEDS: D5W/SOD CHL 0.45% 1,000 ML IV ONE (18:47)
--- NOTE | 2025-05-02 23:17 | DVHPN2 ---
Progress Note - Dictate Date Seen: May 02, 2025 Has the PT tested + for MRSA If YES, has PT been informed?: No Medical Necessity Reason Pt with a Central, PICC or Fol: No Subjective Patient was seen and evaluated in follow up. Patient is complaining of RUQ abdominal pain. Patient rates pain 10/10. UA shows turbid urine, WBCs 19, bacteria few. Telemetry reviewed. vital signs Vital Sign Date Time Temp Pulse Resp B/P (MAP) Pulse Ox O2 Delivery O2 Flow Rate FiO2 05/02/25 21:14 97.8 82 17 141/88 (105) 96 97.8 05/02/25 13:15 Nasal Cannula 2.0 93 Total Intake and Output 05/01/25 05/01/25 05/02/25 15:00 23:00 07:00 Intake Total 50 ml 1275 ml 1800 ml Output Total 400 ml 2400 ml Balance 50 ml 875 ml -600 ml medications Current Medications Medications Dose Ordered Sig/Raquel Route Start Time Stop Time Status Last Admin Dose Admin Aspirin 81 mg DAILY PO 04/29/25 10:00 05/01/25 09:22 81 MG Atorvastatin Calcium 10 mg HS PO 04/28/25 22:00 05/02/25 22:03 10 MG Ondansetron HCl 4 mg Q4HP PRN IV 04/28/25 14:45 04/28/25 20:54 4 MG Acetaminophen 650 mg Q6HP PRN PO 04/28/25 14:45 04/29/25 10:38 650 MG Nitroglycerin 0.4 mg Q5MINP PRN SL 04/28/25 14:45 Hydralazine HCl 10 mg Q6HP PRN IV 04/29/25 12:00 05/01/25 21:48 10 MG Lisinopril 10 mg DAILY PO 04/29/25 14:00 05/02/25 09:47 10 MG Ceftriaxone Sodium 50 ml @ 100 mls/hr DAILY@09 IV 04/29/25 14:15 05/02/25 09:47 100 MLS/HR Morphine Sulfate 1 mg Q6HP PRN IV 04/29/25 15:45 05/02/25 18:46 1 MG Baclofen 10 mg BID PO 04/29/25 15:45 05/02/25 22:03 10 MG Acetaminophen/ Hydrocodone Bitart 1 tab Q6HP PRN PO 04/29/25 19:30 05/02/25 22:03 1 TAB objective GENERAL: Alert and oriented x 3. No acute distress. Unkept. EYES: PERRL, EOMI. Anicteric. HENT: Moist mucous membranes. LUNGS: Clear to auscultation bilaterally. CARDIOVASCULAR: Regular rate and rhythm. ABDOMEN: Soft, nontender and nondistended. EXTREMITIES: No edema. NEUROLOGIC: No focal neurological deficits. SKIN: Warm, dry. laboratory and microbiology Laboratory Tests 05/02/25 06:21 Test 05/02/25 06:21 Range/Units Serum Glucose 88 74-106 mg/dL Problem List Preprocedural cardiovascular examination. Possible acute cholecystitis. Hypertension. History of CVA. Methamphetamine abuse. Nicotine dependence. Assessment/Plan Continued all current supportive medical care. IV antibiotics as ordered. Lisinopril. IV Hydralazine for SBP > 160. Aspirin. Nitro SL. [place] for pain management. Additional plan as per the hospital course. Plan discussed with: Patient RAMSES PAUL MD May 02, 2025 23:17
[2025-05-03] VITALS (8 sets, daily range): BP systolic 133–166; BP diastolic 86–99; PULSE 68–84; RESP 16–18; TEMP 97.6–98.9; O2SAT 94–96
[2025-05-03 06:47] LABS: Hematocrit 50.9 % (41.0-53.0); Hemoglobin 17.1 g/dL (13.5-17.5); Mean Corpuscular Hemoglobin 29.8 pg (28.0-32.0); Mean Corpuscular Volume 88.7 fL (80.0-100.0); Nucleated Red Blood Cells % 0.6 %
[2025-05-03 07:04] LABS: Alkaline Phosphatase 93 U/L (46-116); Anion Gap 14 (5-15); BUN/Creatinine Ratio 12.8 (10.0-20.0); Blood Urea Nitrogen 12 mg/dL (9-23); Calcium 9.8 mg/dL (8.7-10.4); Carbon Dioxide 21 mmol/L (20-31); Chloride 105 mmol/L (98-107); Glucose 97 mg/dL (74-106); Potassium 4.7 mmol/L (3.5-5.1); Sodium 140 mmol/L (136-145); Total Protein 7.1 g/dL (5.7-8.2)
[2025-05-03 07:05] LABS: Albumin 4.3 g/dL (3.2-4.8); Bilirubin, Total 1.1 mg/dL (0.2-1.0)
[2025-05-03 07:08] LABS: Alanine Aminotransferase 52 U/L (7-40)
--- NOTE | 2025-05-03 09:25 | DVHPN2 ---
Progress Note - Dictate Date Seen: May 03, 2025 Has the PT tested + for MRSA If YES, has PT been informed?: No Medical Necessity Reason Pt with a Central, PICC or Fol: No Subjective E: no major events o/n. doing better. vital signs Vital Sign Date Time Temp Pulse Resp B/P (MAP) Pulse Ox O2 Delivery O2 Flow Rate FiO2 05/03/25 05:46 98.4 68 17 166/99 (121) 95 98.4 05/02/25 20:00 Nasal Cannula* 2 28 Total Intake and Output 05/02/25 05/02/25 05/03/25 15:00 23:00 07:00 Intake Total 100 ml 500 ml 600 ml Output Total 1400 ml 300 ml Balance 100 ml -900 ml 300 ml medications Current Medications Medications Dose Ordered Sig/Raquel Route Start Time Stop Time Status Last Admin Dose Admin Aspirin 81 mg DAILY PO 04/29/25 10:00 05/01/25 09:22 81 MG Atorvastatin Calcium 10 mg HS PO 04/28/25 22:00 05/02/25 22:03 10 MG Ondansetron HCl 4 mg Q4HP PRN IV 04/28/25 14:45 04/28/25 20:54 4 MG Acetaminophen 650 mg Q6HP PRN PO 04/28/25 14:45 04/29/25 10:38 650 MG Nitroglycerin 0.4 mg Q5MINP PRN SL 04/28/25 14:45 Hydralazine HCl 10 mg Q6HP PRN IV 04/29/25 12:00 05/03/25 04:57 10 MG Lisinopril 10 mg DAILY PO 04/29/25 14:00 05/02/25 09:47 10 MG Ceftriaxone Sodium 50 ml @ 100 mls/hr DAILY@09 IV 04/29/25 14:15 05/02/25 09:47 100 MLS/HR Morphine Sulfate 1 mg Q6HP PRN IV 04/29/25 15:45 05/03/25 03:48 1 MG Baclofen 10 mg BID PO 04/29/25 15:45 05/02/25 22:03 10 MG Acetaminophen/ Hydrocodone Bitart 1 tab Q6HP PRN PO 04/29/25 19:30 05/03/25 06:00 1 TAB objective GEN: NAD ABD: surgical dressings clean and dry. laboratory and microbiology Laboratory Tests 05/03/25 06:05 Test 05/03/25 06:05 Range/Units Serum Glucose 97 74-106 mg/dL Assessment/Plan A: 1. s/p lap cholecystectomy POD #1 P: 1. recheck LFTs. if T bili trends down, stable from surgery POV for DC. if trending up, then recheck tomorrow. Plan discussed with: Patient TANIKA SOLORIO MD May 03, 2025 09:25
[2025-05-03 13:50] LABS: Albumin 4.4 g/dL (3.2-4.8); Alkaline Phosphatase 96.0 U/L (46-116); Bilirubin, Total 0.9 mg/dL (0.2-1.0); Total Protein 7.4 g/dL (5.7-8.2)
[2025-05-03 13:51] LABS: Alanine Aminotransferase 51.0 U/L (7-40); Bilirubin, Direct 0.4 mg/dL (<0.3)
[2025-05-03] MEDS ORDERED: AUG875T PO (15:48)
[2025-05-03 15:54] LABS: Albumin 4.4 g/dL (3.2-4.8); Alkaline Phosphatase 92.0 U/L (46-116); Bilirubin, Total 0.8 mg/dL (0.2-1.0); Total Protein 7.6 g/dL (5.7-8.2)
[2025-05-03 15:55] LABS: Alanine Aminotransferase 47.0 U/L (7-40); Bilirubin, Direct 0.4 mg/dL (<0.3)
--- NOTE | 2025-05-03 16:51 | DVHPN2 ---
Progress Note - Dictate Date Seen: May 03, 2025 Has the PT tested + for MRSA If YES, has PT been informed?: No Medical Necessity Reason Pt with a Central, PICC or Fol: No Subjective Patient was seen and evaluated in follow up. Patient is on 2 LPM NC. Patient is s/p laparoscopic cholecystectomy, tolerated procedure well. CBC and Chemistry are WNL. Telemetry reviewed. vital signs Vital Sign Date Time Temp Pulse Resp B/P (MAP) Pulse Ox O2 Delivery O2 Flow Rate FiO2 05/03/25 13:30 97.8 76 17 154/99 (117) 94 97.8 05/03/25 08:00 Nasal Cannula* 2 28 Total Intake and Output 05/02/25 05/02/25 05/03/25 14:59 22:59 06:59 Intake Total 100 ml 500 ml 600 ml Output Total 1400 ml 300 ml Balance 100 ml -900 ml 300 ml medications Current Medications Medications Dose Ordered Sig/Raquel Route Start Time Stop Time Status Last Admin Dose Admin Aspirin 81 mg DAILY PO 04/29/25 10:00 05/03/25 09:27 81 MG Atorvastatin Calcium 10 mg HS PO 04/28/25 22:00 05/02/25 22:03 10 MG Ondansetron HCl 4 mg Q4HP PRN IV 04/28/25 14:45 04/28/25 20:54 4 MG Acetaminophen 650 mg Q6HP PRN PO 04/28/25 14:45 04/29/25 10:38 650 MG Nitroglycerin 0.4 mg Q5MINP PRN SL 04/28/25 14:45 Hydralazine HCl 10 mg Q6HP PRN IV 04/29/25 12:00 05/03/25 04:57 10 MG Lisinopril 10 mg DAILY PO 04/29/25 14:00 05/03/25 09:27 10 MG Ceftriaxone Sodium 50 ml @ 100 mls/hr DAILY@09 IV 04/29/25 14:15 05/03/25 09:27 100 MLS/HR Morphine Sulfate 1 mg Q6HP PRN IV 04/29/25 15:45 05/03/25 03:48 1 MG Baclofen 10 mg BID PO 04/29/25 15:45 05/03/25 09:28 10 MG Acetaminophen/ Hydrocodone Bitart 1 tab Q6HP PRN PO 04/29/25 19:30 05/03/25 12:15 1 TAB objective GENERAL: Alert and oriented x 3. No acute distress. Unkept. EYES: PERRL, EOMI. Anicteric. HENT: Moist mucous membranes. LUNGS: Clear to auscultation bilaterally. CARDIOVASCULAR: Regular rate and rhythm. ABDOMEN: Soft, nontender and nondistended. EXTREMITIES: No edema. NEUROLOGIC: No focal neurological deficits. SKIN: Warm, dry. laboratory and microbiology Laboratory Tests 05/03/25 06:05 Test 05/03/25 06:05 Range/Units Serum Glucose 97 74-106 mg/dL Problem List Preprocedural cardiovascular examination. Possible acute cholecystitis. Hypertension. History of CVA. Methamphetamine abuse. Nicotine dependence. Assessment/Plan Continued all current supportive medical care. Morphine and [place] for pain management. Aspirin, Lipitor. IV antibiotics as ordered. IV Hydralazine for SBP >160. Lisinopril. Nitro SL. Additional plan as per the hospital course. Plan discussed with: Patient RAMSES PAUL MD May 03, 2025 16:51
--- NOTE | 2025-05-03 16:52 | DVHDSRES ---
Discharge Summary Date of Admission Resident Creating Document: LON RODRIGUEZ RESIDENT Apr 28, 2025 at 14:32 Date of Discharge: May 03, 2025 Admitting Diagnosis Intractable right upper quadrant, intercostal pain due to Cholelithiasis, possible acute cholecystitis Wounds: No large wounds. Laparoscopic cholecystectomy surgical incisions done on 05/03/2025. Labs/Diagnostic Data: Laboratory Results Test 05/03/25 14:51 05/03/25 06:05 05/01/25 06:33 04/29/25 15:45 Total Bilirubin 0.8 mg/dL (0.2-1.0) Direct Bilirubin 0.4 mg/dL (<0.3) Aspartate Amino Transferase (AST) 47 U/L (13-40) Alanine Aminotransferase (ALT) 47 U/L (7-40) Alkaline Phosphatase 92 U/L (46-116) Total Protein 7.6 g/dL (5.7-8.2) Albumin 4.4 g/dL (3.2-4.8) White Blood Count 9.6 10^3/uL (4.4-10.8) Red Blood Count 5.74 10^6/uL (4.5-5.90) Hemoglobin 17.1 g/dL (13.5-17.5) Hematocrit 50.9 % (41.0-53.0) Mean Corpuscular Volume 88.7 fL (80.0-100.0) Mean Corpuscular Hemoglobin 29.8 pg (28.0-32.0) Mean Corpuscular Hemoglobin Concent 33.6 g/dL (32.0-36.0) Red Cell Distribution Width 14.5 % (11.8-14.3) Platelet Count 199 10^3/uL (140-450) Mean Platelet Volume 8.2 fL (6.9-10.8) Neutrophils (%) (Auto) 55.7 % (37.0-80.0) Lymphocytes (%) (Auto) 35.4 % (10.0-50.0) Monocytes (%) (Auto) 8.3 % (0.0-12.0) Eosinophils (%) (Auto) 0.4 % (0.0-7.0) Basophils (%) (Auto) 0.2 % (0.0-2.0) Neutrophils # (Auto) 5.3 10 ^3/uL (1.6-8.6) Lymphocytes # (Auto) 3.4 10 ^3/uL (0.4-5.4) Monocytes # (Auto) 0.8 10 ^3/uL (0-1.3) Eosinophils # (Auto) 0 10 ^3/uL (0-0.8) Basophils # (Auto) 0 10 ^3/uL (0-0.2) Nucleated Red Blood Cells 0.6 % Sodium Level 140 mmol/L (136-145) Potassium Level 4.7 mmol/L (3.5-5.1) Chloride Level 105 mmol/L (98-107) Carbon Dioxide Level 21 mmol/L (20-31) Anion Gap 14 (5-15) Blood Urea Nitrogen 12 mg/dL (9-23) Creatinine 0.94 mg/dL (0.700-1.30) Glomerular Filtration Rate Calc 91 mL/min (>90) BUN/Creatinine Ratio 12.8 (10.0-20.0) Serum Glucose 97 mg/dL (74-106) Calcium Level 9.8 mg/dL (8.7-10.4) Prothrombin Time 11.2 sec (9.3-11.8) Prothrombin Time INR 1.06 (0.9-1.15) Activated Partial Thromboplast Time 29.6 SEC (24.5-34.5) Urine Opiates Screen Neg (NEGATIVE) Urine Fentanyl Screen Neg (NEGATIVE) Urine Barbiturates Screen Neg (NEGATIVE) Urine Phencyclidine Screen Neg (NEGATIVE) Urine Amphetamines Screen Pos (NEGATIVE) Urine Benzodiazepines Screen Neg (NEGATIVE) Urine Cocaine Screen Neg (NEGATIVE) Urine Cannabinoids Screen Neg (NEGATIVE) Test 04/29/25 12:15 04/29/25 08:59 04/28/25 15:25 04/28/25 11:56 Influenza Type A Antigen Negative (Negative) Influenza Type B Antigen Negative (Negative) SARS-CoV-2 Antigen (Rapid) Negative (NEGATIVE) B-Type Natriuretic Peptide 40.42 pg/mL (0-100) Urine Color Yellow (Yellow) Urine Clarity Turbid (Clear) Urine pH 6.0 (5.0-9.0) Urine Specific [place] 1.037 (1.001-1.035) Urine Protein 1+ (Negative) Urine Ketones Trace (Negative) Urine Blood Negative /uL (Negative) Urine Nitrite Negative (Negative) Urine Bilirubin Negative (Negative) Urine Urobilinogen 6 mg/dL (Negative) Urine Leukocyte Esterase Negative /uL (Negative) Urine RBC 25 /hpf (0 - 3) Urine Microscopic WBC 19 /HPF (0-3) Urine Squamous Epithelial Cells Few /hpf (<5) Urine Bacteria Few /hpf (None Seen) Urine Mucus Few (None Seen) Urine Glucose Normal mg/dL (Normal) Troponin I High Sensitivity 4 ng/L (</=54) Test 04/28/25 10:46 Triglycerides Level 66 mg/dL (< 150) Cholesterol Level 157 mg/dL (< 200) LDL Cholesterol 105 mg/dL (< 100) HDL Cholesterol 48 mg/dL (40-59) Thyroid Stimulating Hormone (TSH) 0.83 uIU/mL (0.55-4.78) Other Laboratory Tests 05/03/25 06:05 Brief Hx & Hospital Course: Beto Kwan is a 64-year-old male presented to the ED with chief complaint of chest pain that started 4 days ago. His pain started in the right lower costal area. The pain is intractable, sharp, radiating to the midline of the chest. The pain is accompanied with shortness of breaths. No history of fever, nausea or vomiting, diarrhea, loss of consciousness. No history of blunt abdominal trauma or blunt thoracic trauma. 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 After the surgery, he was left with deficit, more prominent on the right side of the body. His labs show borderline hypocalcemia. Urine analysis shows turbid urine with WBC 19, few bacteria. His head CT shows no abnormality. Chest x-ray shows no abnormality. CT abdomen shows cholelithiasis, calcification in the upper pole of the left kidney, high density left renal cysts. Surgery was consulted. During his stay, he was started on ceftriaxone and Zofran. An echo was done, revealing 65% ejection fraction. Cardiology cleared for moderate risk surgery. For general surgery perform laparoscopic cholecystectomy on 05/03/2025. His labs are stable. He is tolerating oral diet. His abdominal laparoscopic incision sites are dry, no abnormal findings seen on examination. He will be discharged today and will follow with General surgery for post surgery follow-up in 2 weeks. Discharge plan: Please follow-up with PCP in 1 week. Please follow-up with general surgery for post surgery follow-up appointment. Please continue Augmentin twice daily for 4 days. Consults/Reason for consult During his stay, he was consulted by Cardiology and General surgery. Per Cardiology standpoint, the patient is at an acceptable-risk for moderate- risk surgery. General surgery advised management of cholecystitis with laparoscopic cholecystectomy. Operations or Procedures Date: 05/02/25 Preop Diagnosis: 1. Acute cholecystitis Postop Diagnosis: 1. Same Surgeon: Serge Wiseman MD Historical Guide: None Anesthesiologist: Dr. Rutherford Anesthesia: General, Local Consent: The surgery and its risks including but not limited to infection, bleeding requiring possible blood transfusion with the risk of hepatitis or HIV infection, possible open surgery, possible open surgery, possible cystic duct leak or retained common bile duct stone requiring further intervention such as an ERCP, possible perioperative [place] or stroke were explained to the patient. All questions were answered to his satisfaction. He expressed verbal understanding and wished to proceed with the surgery. Complications: None Estimated Blood Loss: 100 mL Fluids: 1100 mL Name of Procedure Performed Laparoscopic cholecystectomy Procedure Details: After induction of general anesthesia, patient's abdomen was prepped and draped in standard surgical fashion. A small supraumbilical incision was made and this incision was taken through the abdominal wall down to the fascia which was opened sharply. Peritoneum was then bluntly divided gaining access to the intra-abdominal cavity. Interrupted 0 Vicryl sutures were placed through the fascial incision and using an open technique, Rozina trocar was introduced and secured using the Vicryl sutures. Abdomen was then insufflated to 15 mmHg and camera was inserted. Visual examination of the intestine under the fascial incision appeared normal without injury. Under direct visualization a 12 mm bladeless trocar was placed in the epigastric region and two additional 5 mm bladeless trocars were placed in the right upper quadrant all under direct visualization. Examination of the right upper quadrant revealed a very distended and large gallbladder. An endo needle was used to decompress the gallbladder with bilious fluid aspirated from the gallbladder lumen. Once the gallbladder was decompressed it was grasped and retracted in a cephalad direction. Infundibulum was retracted laterally and careful blunt dissection was performed to identify the cystic duct which appeared slightly dilated. Cystic duct appeared slightly dilated and it appeared to be too big to be clipped with a Endoclip. A 45 mm endo stapler was used to staple across the gallbladder cystic duct junction without complication. The cystic artery was located just above the cystic duct and this was clipped and divided using Endoclips without complication. Gallbladder was then removed from the liver bed using electrocautery. There was no bile or stone spillage during the maneuver. Gallbladder was then removed from the abdominal cavity using an endo pouch bag and sent off the surgical field. Abdomen was then re-insufflated. Hemostasis in the liver bed was achieved using electrocautery. Right upper quadrant was then well irrigated until fluid was clear. Trocars were then removed under direct visualization as the abdomen was deflated. Additional interrupted 0 Vicryl sutures were placed through the supraumbilical fascial incision and all sutures were tied down closing off the supraumbilical fascia. Surgical sites were irrigated injected with 20 mL of 1% lidocaine with epinephrine. Skin incisions were closed using 4-0 Monocryl sutures in subcuticular fashion. Surgical sites were cleaned and dried and dressings were applied. Sponge, needle, instrument count at the end of the case were reported to be correct by the nursing staff. The patient tolerated procedure well and was awakened, extubated and transferred to recovery in stable condition. Specimen: Gallbladder Condition: Stable --- EXAM: Two-dimensional and M-mode echocardiogram with Doppler and color Doppler. Blood Pressure: 113/42 mmHg INDICATION Chest Pain RISK FACTORS Height: 6'0, Weight: 218 DIMENSIONS LVDd 4.9 (3.8-5.7cm) LA (2D) 4.4 (1.9-4.0cm) Aortic Root 4.0 (2.0- 3.7cm) LVDs 3.6 (2.5-4.0cm) LA (MM) (1.9-4.0cm) Aortic Cusp Exc 1.8 (1.5- 2.0cm) EF (%) 55.0 (55-70%) Rt. Atrium 3.4 (1.9-4.0cm) Asc. Aorta cm IVSd 1.2 (0.7-1.1cm) RV (D) 5.5 (1.8-2.4cm) PWd 0.9 (0.7-1.1cm) Mitral Valve Mitral Mitral Stenosis E wave 0.53m/s MV Mean GR. mmHg A wave 0.77m/s MV Peak GR. 67mmHg E/A ratio 0.7 2D MVA cm2 DECEL Time 216ms PRESS 1/2 Time ms Aortic Valve Aortic Valve Aortic Stenosis V1 1.06m/s AO Mean GR. 5mmHg V2 1.37m/s AO Peak GR. 7mmHg LVOT Diameter 2.5 (1.8-2.4cm) Doppler CARLA 3.80cm2 Pulmonic Valve V2 0.69m/s Other Information Technically limited study due to patient position. Conclusion LV EF IS 65% NORMAL VALVES NORMAL RV FUNCTION SLIGHTLY DILATED RV AND RA NO EFFUSION ---- Ultrasound of the gallbladder INDICATION: possible acute cholecystitis Technique: 2-D real-time ultrasound was performed with axial and sagittal images submitted for evaluation. FINDINGS: There is a gallstone present measuring 1.1 cm. The gallbladder wall is thickened measuring 3.1 mm. There is a positive sonographic petit's sign. The common bile duct is not well visualized. IMPRESSION: 1. Cholelithiasis with possible cholecystitis ---- XY R RIB XRAY REASON FOR EXAM: pain in right lower ribs TECHNIQUE: Frontal view of the chest and 2 views of the right ribs are submitted for review. COMPARISON: None FINDINGS: The cardiomediastinal silhouette is stable. There is no focal airspace disease . There is no significant pleural effusion. There is no pneumothorax. No rib fracture is identified. IMPRESSION: No rib fracture is identified. --- CT CT AB PEL WO CON-NO ORAL OR IV History: Pain right upper quadrant abdomen, lower intercoastal Comparison Study: None Technique: Multidetector spiral CT of the abdomen and pelvis was performed from lung bases to pubic symphysis. Imaging was performed without IV contrast. Axial, coronal and sagittal multiplanar reformats were obtained from the axial data set by the technologist. Radiation dose : Abdomen/Pelvis: CTDIvol 22.66 mGy, DLP 1269.92 mGy*cm. Findings: Evaluation of solid organs is limited due to lack of intravenous contrast use. Lung Bases: Trace bilateral pleural effusions with associated bibasilar consolidation right greater than left. Liver: The liver is normal in size. No focal lesions. Gallbladder and biliary Tree: Cholelithiasis noted without secondary findings of cholecystitis or biliary obstruction. Spleen: Unremarkable Pancreas: The pancreas is grossly normal in appearance. Adrenal Glands: Unremarkable Kidneys: Calcification in the upper pole of the left kidney associated with a small cyst. High density cysts projecting off the left kidney measuring up to 30 mm. No hydronephrosis. Bladder: Grossly unremarkable for degree of distention. Bowel: The stomach is grossly normal in appearance. Small bowel and colon are normal in caliber and distribution. The appendix is not visualized; however, no secondary findings of acute appendicitis identified. Nonspecific gaseous distention of bowel. Ascites: Absent Lymphadenopathy: No mesenteric, retroperitoneal or periportal lymphadenopathy. Abdominal wall and Mesentery: Unremarkable. Vasculature: Calcified atherosclerotic disease. Pelvic Organs: Unremarkable Musculoskeletal: No aggressive focal bony lesions, acute fractures or dislocation. IMPRESSION: 1. No acute abdominal or pelvic findings. Cholelithiasis. Calcification in the upper pole of the left kidney. High density left renal cysts. Consider further evaluation with MRI of the abdomen with contrast. Nonspecific gaseous distention of bowel. Trace bilateral pleural effusions with associated bibasilar atelectasis consolidation right greater than left. Consider dedicated chest CT. ---- CT HEAD WITHOUT CONTRAST INDICATION: syncope TECHNIQUE: CT of the head without intravenous contrast. Radiation Dose : 1. Head: CT Dose: CTDI volume is 63.26 mGy. Dose-length product is 1199.08 mGy*cm The dose indicators for CT are the volume Computed Tomography (CT) Dose Index (CTDIvol) and the Dose Length Product (DLP), and are measured in units of mGy and mGy-cm, respectively. These indicators are not patient dose, but values generated from the CT scanner acquisition factors. The report includes radiation exposure data for exposures received during this examination. COMPARISON: None FINDINGS: There is no evidence of acute intracranial hemorrhage, extra-axial collection, mass effect, midline shift, herniation or hydrocephalus. Left frontal lobe and left parietal lobe encephalomalacia. The ventricles, sulci and cisterns are age appropriate. The melara-white differentiation is intact. Patchy periventricular and subcortical white matter hypoattenuation is nonspecific but may be related to small vessel ischemic disease. The visualized paranasal sinuses and mastoid air cells are clear. The surrounding soft tissues and osseous structures are unremarkable. IMPRESSION: No acute intracranial abnormality. ---- XY CHEST PORTABLE Indication: syncope Technique: Single frontal view of the chest was obtained Comparison: XY CHEST PORTABLE on DOS: 04/08/25 FINDINGS: Lines and Tubes: None Lungs: No focal consolidation. Pleura: No effusion. No pneumothorax. Cardiomediastinal contours: Unremarkable Bones: No acute osseous abnormality. IMPRESSION: No acute cardiopulmonary disease. Condition at Discharge: Stable Final Diagnosis/Problems List Intractable right upper quadrant, intercostal pain due to Cholelithiasis, possible acute cholecystitis Status post laparoscopic cholecystectomy UTI, possible History of polysubstance abuse Asymptomatic bradycardia Poorly controlled hypertension Hypocalcemia Overweight with BMI 29.6 Discharge Disposition: Home Discharge Instruct/Medications Diet: Regular Activity: No Restrictions, As Tolerated Follow Up/Referral: Please follow-up with PCP in 1 week. Please follow-up with general surgery for post surgery follow-up appointment. Medications: Please continue Augmentin twice daily for 4 days. Care Plan: Please follow-up with PCP in 1 week. Please follow-up with general surgery for post surgery follow-up appointment in 2 weeks. Please continue Augmentin twice daily for 4 days. Scheduled Amoxicillin & Pot Clavulanate (Augmentin Tablet), 875 MG PO BID Cephalexin Monohydrate (Cephalexin), 500 MG PO Q6HR Clonidine Hydrochloride (Clonidine Hcl), 1 TAB PO BID Scheduled PRN Acetaminophen (Acetaminophen), 500 MG PO Q4HP PRN Ibuprofen Micronized (Ibuprofen), 800 MG PO Q8HP PRN Discharge Statement: "Patient was advised to return to the ER or call 911 if any headaches, dizziness, shortness of breath, chest pain, abdominal pain, bleeding, fevers, or worsening of medical condition. Patient was counseled about treatment plan, medications, possible side effects, patientverbalized understanding. All questions were answered to the best of my ability. This discharge took greater then 30 minutes in planning, reviewing documentation, counseling the patient, and discussing with other team members." ASSESSMENT ASSESSMENT Assessment Intractable right upper quadrant, intercostal pain due to Cholelithiasis Status post laparoscopic cholecystectomy UTI, possible History of polysubstance abuse Asymptomatic bradycardia Poorly controlled hypertension Hypocalcemia Overweight with BMI 29.6 LON RODRIGUEZ RESIDENT May 03, 2025 16:52
[2025-05-04 08:00] VITALS: PULSE 68; RESP 20; O2SAT 100
[2025-05-04 09:00] VITALS: BP 152/107; PULSE 84; RESP 16; TEMP 98.1; O2SAT 95
[2025-05-04 13:00] VITALS: BP 135/93; PULSE 83; RESP 16; TEMP 98; O2SAT 95
--- NOTE | 2025-05-04 16:42 | DVHPNRES ---
Progress Note Date Seen: May 04, 2025 Resident Creating Document: LON RODRIGUEZ RESIDENT Has the PT tested + for MRSA If YES, has PT been informed?: No Medical Necessity Reason Pt with a Central, PICC or Fol: No Subjective Review of Systems Beto Kwan is a 64-year-old male presented to the ED with chief complaint of chest pain that started 4 days ago. His pain started in the right lower costal area. The pain is intractable, sharp, radiating to the midline of the chest. The pain is accompanied with shortness of breaths. No history of fever, nausea or vomiting, diarrhea, loss of consciousness. No history of blunt abdominal trauma or blunt thoracic trauma. 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 After the surgery, he was left with deficit, more prominent on the right side of the body. His labs show borderline hypocalcemia. Urine analysis shows turbid urine with WBC 19, few bacteria. His head CT shows no abnormality. Chest x-ray shows no abnormality. CT abdomen shows cholelithiasis, calcification in the upper pole of the left kidney, high density left renal cysts. Surgical consult was placed, advised HIDA scan. An echo was done, revealing 65% ejection fraction, Cardiology cleared him for procedure. Cardiology cleared for moderate risk surgery and will be taken for laparoscopic cholecystectomy. Labs WNL. Social history: No alcohol use, smokes 2 cigarettes a day, recreational drug use (methamphetamine), poor hygiene 05/02/25: Continues to complain of pain in right upper quadrant abdomen. He rates pain 11/10. His vital signs are stable today. Labs are WNL. UA shows turbid urine, WBCs 19, bacteria few. tomorrow. We will continue monitoring and managing. 05/04/25: He was examined at bedside today. He complains of pain abdomen, manageable with medications. His vitals andlabs are stable. He is on regular diet. His abdominal laparoscopic incision sites WNL. He will be discharged to boarding house upon availability. ROS: Constitutional: Denies fever and chills. No new complains. HEENT: Denies changes in vision and hearing. Respiratory: Denies shortness of breath and cough Cardiovascular: Denies chest discomfort or palpitations GI: Complains of pain abdomen. : Denies dysuria and urinary frequency. Musculoskeletal: Denies myalgias and joint pain Skin: Denies rash and pruritus. Neurological: Denies dizziness, headache, vision or hearing problems Objective vital signs Vital Sign Date Time Temp Pulse Resp B/P (MAP) Pulse Ox O2 Delivery O2 Flow Rate FiO2 05/04/25 13:00 98.0 83 16 135/93 (107) 95 98.0 05/03/25 20:00 Room Air* 0 21 Total Intake and Output 05/03/25 05/03/25 05/04/25 15:00 23:00 07:00 Intake Total 50 ml 1250 ml Output Total 975 ml Balance 50 ml 275 ml medications Current Medications Medications Dose Ordered Sig/Raquel Route Start Time Stop Time Status Last Admin Dose Admin Aspirin 81 mg DAILY PO 04/29/25 10:00 05/04/25 08:52 81 MG Atorvastatin Calcium 10 mg HS PO 04/28/25 22:00 05/03/25 21:45 10 MG Ondansetron HCl 4 mg Q4HP PRN IV 04/28/25 14:45 04/28/25 20:54 4 MG Acetaminophen 650 mg Q6HP PRN PO 04/28/25 14:45 05/04/25 05:23 650 MG Nitroglycerin 0.4 mg Q5MINP PRN SL 04/28/25 14:45 Hydralazine HCl 10 mg Q6HP PRN IV 04/29/25 12:00 05/03/25 21:44 10 MG Lisinopril 10 mg DAILY PO 04/29/25 14:00 05/04/25 08:52 10 MG Ceftriaxone Sodium 50 ml @ 100 mls/hr DAILY@09 IV 04/29/25 14:15 05/04/25 08:53 100 MLS/HR Morphine Sulfate 1 mg Q6HP PRN IV 04/29/25 15:45 05/03/25 03:48 1 MG Baclofen 10 mg BID PO 04/29/25 15:45 05/04/25 08:53 10 MG Acetaminophen/ Hydrocodone Bitart 1 tab Q6HP PRN PO 04/29/25 19:30 05/04/25 01:17 1 TAB Examination General: Patient alert and oriented in person, place and time. Patient following commands. HEENT: Normocephalic, atraumatic, moist mucous membranes, poor hygiene. Respiratory/pulmonary: Clear lungs bilaterally, no associated crackles or wheezes. Cardiovascular: Normal heart sounds S1 and S2 with no associated murmurs Abdomen: Abdomen is soft, non tender. Dressing around the laparoscopic incision sites are dry, binder in place. Reducible umbilical hernia. Extremities: There is no peripheral edema present at the lower extremities. Peripheral Pulses: 3+ Radial (R). 3+ Radial (L). 3+ Dorsalis pedis (R). 3+ Dorsalis pedis(L) Skin: Small Scars and scabs on all 4 extremities. Neurological: Power Right hand 2/5, left hand 4/5 laboratory and microbiology Laboratory Tests 05/03/25 06:05 Test 05/03/25 06:05 Range/Units Serum Glucose 97 74-106 mg/dL Microbiology Date/Time Source Procedure Growth Status 04/29/25 02:50 Nose MRSA Screen - Final Complete Problem List/Assessment/Plan Problem List/Assessment/Plan #Intractable right upper quadrant, intercostal pain due to following: #Cholelithiasis, Rule out cholecystitis #Status post laparoscopic cholecystectomy -CT scan shows cholelithiasis, calcification in the upper pole of the left kidney, high density left renal cysts. -MRSA negative -Ultrasound shows cholelithiasis with possible cholecystitis -Pain management with ibuprofen, baclofen as needed #UTI, possible -Urine analysis showed WBC 19, bacteria positive -Continue Zofran as needed -Will be discharged on Augmentin. Was managed with IV ceftriaxone. #History of polysubstance abuse -Amphetamine on tox screen positive #Asymptomatic bradycardia #Poorly controlled hypertension #Hypocalcemia -Managed with lisinopril. #Overweight with BMI 29.6 -Lifestyle modification Goals of care discussed with patient at bedside for > 25 minutes Full Code Plan discussed with Dr. Carballo Plan discussed with: Patient My Orders My Orders Orders - LON RODRIGUEZ RESIDENT Procedure Category Date Status Time Discharge DISCHARGE 05/03/25 Transmitted 17:27 LON RODRIGUEZ RESIDENT May 04, 2025 16:42
[2025-05-04 17:00] VITALS: BP 129/95; PULSE 85; RESP 16; TEMP 97.5; O2SAT 94
[2025-05-04 20:00] VITALS: PULSE 84; RESP 18; O2SAT 94
[2025-05-04 21:00] VITALS: BP 145/90; PULSE 84; RESP 18; TEMP 97.9; O2SAT 98
--- NOTE | 2025-05-04 23:56 | DVHPN2 ---
Progress Note - Dictate Date Seen: May 04, 2025 Has the PT tested + for MRSA If YES, has PT been informed?: No Medical Necessity Reason Pt with a Central, PICC or Fol: No Subjective Patient was seen and evaluated in follow up. Patient is on 2 LPM NC. Patient was downgraded to med/surg. Patient complains of abdominal pain at the surgical site. vital signs Vital Sign Date Time Temp Pulse Resp B/P (MAP) Pulse Ox O2 Delivery O2 Flow Rate FiO2 05/04/25 13:00 98.0 83 16 135/93 (107) 95 98.0 05/03/25 20:00 Room Air* 0 21 Total Intake and Output 05/03/25 05/03/25 05/04/25 15:00 23:00 07:00 Intake Total 50 ml 1250 ml Output Total 975 ml Balance 50 ml 275 ml medications Current Medications Medications Dose Ordered Sig/Raquel Route Start Time Stop Time Status Last Admin Dose Admin Aspirin 81 mg DAILY PO 04/29/25 10:00 05/04/25 08:52 81 MG Atorvastatin Calcium 10 mg HS PO 04/28/25 22:00 05/03/25 21:45 10 MG Ondansetron HCl 4 mg Q4HP PRN IV 04/28/25 14:45 04/28/25 20:54 4 MG Acetaminophen 650 mg Q6HP PRN PO 04/28/25 14:45 05/04/25 05:23 650 MG Nitroglycerin 0.4 mg Q5MINP PRN SL 04/28/25 14:45 Hydralazine HCl 10 mg Q6HP PRN IV 04/29/25 12:00 05/03/25 21:44 10 MG Lisinopril 10 mg DAILY PO 04/29/25 14:00 05/04/25 08:52 10 MG Ceftriaxone Sodium 50 ml @ 100 mls/hr DAILY@09 IV 04/29/25 14:15 05/04/25 08:53 100 MLS/HR Morphine Sulfate 1 mg Q6HP PRN IV 04/29/25 15:45 05/03/25 03:48 1 MG Baclofen 10 mg BID PO 04/29/25 15:45 05/04/25 08:53 10 MG Acetaminophen/ Hydrocodone Bitart 1 tab Q6HP PRN PO 04/29/25 19:30 05/04/25 01:17 1 TAB objective GENERAL: Alert and oriented x 3. No acute distress. Unkept. EYES: PERRL, EOMI. Anicteric. HENT: Moist mucous membranes. LUNGS: Clear to auscultation bilaterally. CARDIOVASCULAR: Regular rate and rhythm. ABDOMEN: Soft, nontender and nondistended. EXTREMITIES: No edema. NEUROLOGIC: No focal neurological deficits. SKIN: Warm, dry. laboratory and microbiology Laboratory Tests 05/03/25 06:05 Test 05/03/25 06:05 Range/Units Serum Glucose 97 74-106 mg/dL Problem List Preprocedural cardiovascular examination. Possible acute cholecystitis. Hypertension. History of CVA. Methamphetamine abuse. Nicotine dependence. Assessment/Plan Continued all current supportive medical care. Tylenol and [place] for pain management. Aspirin. IV antibiotics as ordered. Lisinopril. Nitro SL. Additional plan as per the hospital course. Plan discussed with: Patient RAMSES PAUL MD May 04, 2025 14:23
[2025-05-05 05:08] VITALS: BP 151/90; PULSE 62; RESP 17; TEMP 97.6; O2SAT 96
[2025-05-05 08:00] VITALS: PULSE 68; RESP 20; O2SAT 100
[2025-05-05 09:00] VITALS: BP 153/96; PULSE 65; RESP 16; TEMP 97.9; O2SAT 94
[2025-05-05] MEDS: AMOXICILLIN/CLAVUL 875 MG TAB PO SCH (09:57)
--- NOTE | 2025-05-05 10:02 | DVHPNRES ---
Progress Note Date Seen: May 05, 2025 Resident Creating Document: LON RODRIGUEZ RESIDENT Has the PT tested + for MRSA If YES, has PT been informed?: No Medical Necessity Reason Pt with a Central, PICC or Fol: No Subjective Review of Systems Beto Kwan is a 64-year-old male presented to the ED with chief complaint of chest pain that started 4 days ago. His pain started in the right lower costal area. The pain is intractable, sharp, radiating to the midline of the chest. The pain is accompanied with shortness of breaths. No history of fever, nausea or vomiting, diarrhea, loss of consciousness. No history of blunt abdominal trauma or blunt thoracic trauma. 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 After the surgery, he was left with deficit, more prominent on the right side of the body. His labs show borderline hypocalcemia. Urine analysis shows turbid urine with WBC 19, few bacteria. His head CT shows no abnormality. Chest x-ray shows no abnormality. CT abdomen shows cholelithiasis, calcification in the upper pole of the left kidney, high density left renal cysts. Surgical consult was placed, advised HIDA scan. An echo was done, revealing 65% ejection fraction, Cardiology cleared him for procedure. Cardiology cleared for moderate risk surgery and will be taken for laparoscopic cholecystectomy. Labs WNL. Social history: No alcohol use, smokes 2 cigarettes a day, recreational drug use (methamphetamine), poor hygiene 05/02/25: Continues to complain of pain in right upper quadrant abdomen. He rates pain 11/10. His vital signs are stable today. Labs are WNL. UA shows turbid urine, WBCs 19, bacteria few. tomorrow. We will continue monitoring and managing. 05/04/25: He complains of pain abdomen, manageable with medications. His vitals andlabs are stable. He is on regular diet. His abdominal laparoscopic incision sites WNL. He will be discharged to boarding house upon availability. 05/05/25: He was examined at bedside today. He reports feeling better, no new complaints. His vitals remained stable. He is on regular diet. He is awaiting to be discharged to a boarding house upon availability. ROS: Constitutional: Denies fever and chills. No new complains. HEENT: Denies changes in vision and hearing. Respiratory: Denies shortness of breath and cough Cardiovascular: Denies chest discomfort or palpitations GI: Pain abdomen improving. : Denies dysuria and urinary frequency. Musculoskeletal: Denies myalgias and joint pain Skin: Denies rash and pruritus. Neurological: Denies dizziness, headache, vision or hearing problems Objective vital signs Vital Sign Date Time Temp Pulse Resp B/P (MAP) Pulse Ox O2 Delivery O2 Flow Rate FiO2 05/05/25 05:08 97.6 62 17 151/90 (110) 96 97.6 05/04/25 20:00 Room Air* 0 21 Total Intake and Output 05/04/25 05/04/25 05/05/25 15:00 23:00 07:00 Intake Total 800 ml 500 ml Output Total 1550 ml 400 ml Balance -750 ml 100 ml medications Current Medications Medications Dose Ordered Sig/Raquel Route Start Time Stop Time Status Last Admin Dose Admin Aspirin 81 mg DAILY PO 04/29/25 10:00 05/04/25 08:52 81 MG Atorvastatin Calcium 10 mg HS PO 04/28/25 22:00 05/04/25 21:13 10 MG Ondansetron HCl 4 mg Q4HP PRN IV 04/28/25 14:45 04/28/25 20:54 4 MG Acetaminophen 650 mg Q6HP PRN PO 04/28/25 14:45 05/04/25 05:23 650 MG Nitroglycerin 0.4 mg Q5MINP PRN SL 04/28/25 14:45 Hydralazine HCl 10 mg Q6HP PRN IV 04/29/25 12:00 05/03/25 21:44 10 MG Lisinopril 10 mg DAILY PO 04/29/25 14:00 05/04/25 08:52 10 MG Morphine Sulfate 1 mg Q6HP PRN IV 04/29/25 15:45 05/03/25 03:48 1 MG Baclofen 10 mg BID PO 04/29/25 15:45 05/04/25 21:13 10 MG Acetaminophen/ Hydrocodone Bitart 1 tab Q6HP PRN PO 04/29/25 19:30 05/04/25 01:17 1 TAB Amoxicillin/ Clavulanate Potassium 875 mg Q12HR PO 05/05/25 10:00 Examination General: Patient alert and oriented in person, place and time. Patient following commands. HEENT: Normocephalic, atraumatic, moist mucous membranes, poor hygiene. Respiratory/pulmonary: Clear lungs bilaterally, no associated crackles or wheezes. Cardiovascular: Normal heart sounds S1 and S2 with no associated murmurs Abdomen: Abdomen is soft, non tender. Dressing around the laparoscopic incision sites are dry, binder in place. Reducible umbilical hernia. Extremities: There is no peripheral edema present at the lower extremities. Peripheral Pulses: 3+ Radial (R). 3+ Radial (L). 3+ Dorsalis pedis (R). 3+ Dorsalis pedis(L) Skin: Small Scars and scabs on all 4 extremities. Neurological: Power Right hand 2/5, left hand 4/5 laboratory and microbiology Laboratory Tests 05/03/25 06:05 Test 05/03/25 06:05 Range/Units Serum Glucose 97 74-106 mg/dL Microbiology Date/Time Source Procedure Growth Status 04/29/25 02:50 Nose MRSA Screen - Final Complete Problem List/Assessment/Plan Problem List/Assessment/Plan #Intractable right upper quadrant, intercostal pain due to following: #Cholelithiasis, Rule out cholecystitis #Status post laparoscopic cholecystectomy -CT scan shows cholelithiasis, calcification in the upper pole of the left kidney, high density left renal cysts. -MRSA negative -Ultrasound shows cholelithiasis with possible cholecystitis -Pain management with ibuprofen, baclofen as needed -GI on board, continue close -Awaiting discharge to boarding house. #UTI, possible -Urine analysis showed WBC 19, bacteria positive -Continue Zofran as needed -Will be discharged on Augmentin. Was managed with IV ceftriaxone. #History of polysubstance abuse -Amphetamine on tox screen positive #Asymptomatic bradycardia #Poorly controlled hypertension #Hypocalcemia -Managed with lisinopril. #Overweight with BMI 29.6 -Lifestyle modification Goals of care discussed with patient at bedside for > 25 minutes Full Code Plan discussed with Dr. Carballo Plan discussed with: Patient Dietary Evaluation Review Comments: Continue current plan of care Expected Outcomes/Goals: To meet >75% estimated needs Lab values to improve Fu 3-5 days LON RODRIGUEZ RESIDENT May 05, 2025 10:02
--- NOTE | 2025-05-06 00:07 | DVHPN2 ---
Progress Note - Dictate Date Seen: May 05, 2025 Has the PT tested + for MRSA If YES, has PT been informed?: No Medical Necessity Reason Pt with a Central, PICC or Fol: No Subjective Patient was seen and evaluated in follow up. Patient reports feeling better today. Patient's diet was advanced to a regular diet. Patient is awaiting discharge to boarding house. vital signs Vital Sign Date Time Temp Pulse Resp B/P (MAP) Pulse Ox O2 Delivery O2 Flow Rate FiO2 05/05/25 09:58 153/96 05/05/25 09:00 97.9 65 16 94 97.9 05/05/25 08:00 Room Air* 0 21 Total Intake and Output 05/04/25 05/04/25 05/05/25 15:00 23:00 07:00 Intake Total 800 ml 500 ml Output Total 1550 ml 400 ml Balance -750 ml 100 ml medications Current Medications Medications Dose Ordered Sig/Raquel Route Start Time Stop Time Status Last Admin Dose Admin Aspirin 81 mg DAILY PO 04/29/25 10:00 05/05/25 09:57 81 MG Atorvastatin Calcium 10 mg HS PO 04/28/25 22:00 05/04/25 21:13 10 MG Ondansetron HCl 4 mg Q4HP PRN IV 04/28/25 14:45 04/28/25 20:54 4 MG Acetaminophen 650 mg Q6HP PRN PO 04/28/25 14:45 05/04/25 05:23 650 MG Nitroglycerin 0.4 mg Q5MINP PRN SL 04/28/25 14:45 Hydralazine HCl 10 mg Q6HP PRN IV 04/29/25 12:00 05/03/25 21:44 10 MG Lisinopril 10 mg DAILY PO 04/29/25 14:00 05/05/25 09:58 10 MG Morphine Sulfate 1 mg Q6HP PRN IV 04/29/25 15:45 05/03/25 03:48 1 MG Baclofen 10 mg BID PO 04/29/25 15:45 05/05/25 09:57 10 MG Acetaminophen/ Hydrocodone Bitart 1 tab Q6HP PRN PO 04/29/25 19:30 05/04/25 01:17 1 TAB Amoxicillin/ Clavulanate Potassium 875 mg Q12HR PO 05/05/25 10:00 05/05/25 09:57 875 MG objective GENERAL: Alert and oriented x 3. No acute distress. Unkept. EYES: PERRL, EOMI. Anicteric. HENT: Moist mucous membranes. LUNGS: Clear to auscultation bilaterally. CARDIOVASCULAR: Regular rate and rhythm. ABDOMEN: Soft, nontender and nondistended. EXTREMITIES: No edema. NEUROLOGIC: No focal neurological deficits. SKIN: Warm, dry. laboratory and microbiology Laboratory Tests 05/03/25 06:05 Test 05/03/25 06:05 Range/Units Serum Glucose 97 74-106 mg/dL Problem List Preprocedural cardiovascular examination. Possible acute cholecystitis. Hypertension. History of CVA. Methamphetamine abuse. Nicotine dependence. Assessment/Plan Continued all current supportive medical care. Aspirin. Oral antibiotics as ordered. Lisinopril. Nitro SL. Additional plan as per the hospital course. Dietary Evaluation Review Comments: Continue current plan of care Expected Outcomes/Goals: To meet >75% estimated needs Lab values to improve Fu 3-5 days Plan discussed with: Patient RAMSES PAUL MD May 05, 2025 13:14
== END 2025-05-05 14:00 | disposition home or self-care (01) | DRG 263 ==
LOC: ER 09:39 → EDUNIT# 09:39 → EDBD 09:39 → OVERFLOW 14:32 → TELE-EAST 21:26 → EAST 05-04 07:13
PROVIDERS: ADMIT Student in an Organized Health Care Education/Training Program; ATTEND Emergency Medicine
PROC: 0FT44ZZ Resection of Gallbladder, Percutaneous Endoscopic Approach (ICD-10-PCS; principal; 2025-05-02 11:04)
DX: K80.00 Calculus of gallbladder with acute cholecystitis without obstruction (principal); E83.51 Hypocalcemia; F15.10 Other stimulant abuse, uncomplicated; I10 Essential (primary) hypertension; I69.398 Other sequelae of cerebral infarction; R00.1 Bradycardia, unspecified; N39.0 Urinary tract infection, site not specified; Z20.822 Contact with and (suspected) exposure to COVID-19; F17.210 Nicotine dependence, cigarettes, uncomplicated; E66.3 Overweight; Z68.29 Body mass index [BMI] 29.0-29.9, adult; Z90.49 Acquired absence of other specified parts of digestive tract
CPT/HCPCS: 36415; 70450; 71045; 71101; 74176; 76705; 80048; 80053; 80061; 80076; 80307; 81001; 83880; 84443; 84484; 85025; 85610; 85730; 86850; 86900; 86901; 87081; 87426; 87804; 93005; 93306; 96374; 96375; 99291; G0378; J2250; J2405; J2704; J3490

== ENCOUNTER 2025-05-21 10:33 | Emergency (ER) | payer MEDICAID ==
[~2025-05-21 10:33] MED LIST changes: +AUG875T PO
[2025-05-21 10:35] VITALS: BP 152/89; RESP 14; O2SAT 97
--- NOTE | 2025-05-21 11:13 | ED.PDOC ---
History of Present Illness HPI Comments 64 y/o M presents with c/c abdominal pain, generalized weakness with confusion. Patient is a poor historian. He endorses on having associated abdominal discomfort and inquires for the removal of surgical stitches following recent cholecystectomy 6-7x days ago. Patient has not followed up with that surgeon or his primary care provider. Denies any nausea, vomiting, or further associated symptoms. Patient was hypertensive at arrival. Chief Complaint: Headache Time Seen by MD: 10:30 Reviewed Notes: Nurses Notes, Medications, Allergies Allergies: Coded Allergies: NO KNOWN ALLERGIES (Unverified , 04/08/25) Home Meds Active Scripts Amoxicillin & Pot Clavulanate (AUGMENTIN TABLET) 875 Mg Tb, 875 MG PO BID for 4 Days, #8 TAB Prov:CODI MCCALL RESIDENT 05/03/25 Acetaminophen (Acetaminophen) 500 Mg Tab, 500 MG PO Q4HP PRN, #30 TAB Prov:MIGUEL SMITH 04/08/25 Ibuprofen Micronized (Ibuprofen) 800 Mg Tab, 800 MG PO Q8HP PRN, #20 TAB Prov:MIGUEL SMITH PAC 04/08/25 Clonidine Hydrochloride (Clonidine Hcl) 0.2 Mg Tab, 1 TAB PO BID, #10 TAB 0 Refills To be used if systolic pressure is above 160 or diastolic pressure is above 90. Prov:MIGUEL SMITH 04/08/25 Cephalexin Monohydrate (Cephalexin) 500 Mg Cap, 500 MG PO Q6HR for 5 Days, #20 MG Prov:ELSI HIRSCH MD 02/13/25 Information Source: Patient Mode of Arrival: Wheelchair Severity: Moderate Timing: Days Duration: Since onset Prehospital treatment: None Past Medical History PAST MEDICAL HISTORY: CVA, HTN Surgical History: Denies all surgeries Family History Family History: Reviewed,noncontributory to illness Social History Smoker: Cigarettes Alcohol: Occasionally Drugs: Denies Drug Use Lives In: Home Constitutional: reports: malaise, weakness; denies: chills, diaphoresis, fatigue, fever, sweats, others EENTM: denies: blurred vision, double vision, ear bleeding, ear discharge, ear drainage, ear pain, ear ringing, eye pain, eye redness, hearing loss, mouth pain, mouth swelling, nasal discharge, nose bleeding, nose congestion, nose pain, photophobia, tearing, throat pain, throat swelling, voice changes, others Respiratory: denies: cough, hemoptysis, orthopnea, SOB at rest, shortness of breath, SOB with excertion, stridor, wheezing, others Cardiovascular: denies: chest pain, dizzy spells, diaphoresis, Dyspnea on exertion, edema, irregular heart beat, left arm pain, lightheadedness, palpitations, PND, syncope, others Gastrointestinal: reports: abdominal pain; denies: abdomen distended, blood streaked bowels, constipated, diarrhea, dysphagia, difficulty swallowing, hematemesis, melena, nausea, poor appetite, poor fluid intake, rectal bleeding, rectal pain, vomiting, others Genitourinary: denies: burning, dysuria, flank pain, frequency, hematuria, incontinence, penile discharge, penile sore, pain, testicle pain, testicle swelling, urgency, others Neurological: denies: dizziness, fainting, headache, left sided numbness, left sided weakness, numbness, paresthesia, pre-existing deficit, right sided numbness, right sided weakness, seizure, speech problems, tingling, tremors, weakness, others Musculoskeletal: denies: back pain, gout, joint pain, joint swelling, muscle pain, muscle stiffness, neck pain, others Integumetry: denies: bruises, change in color, change in hair/nails, dryness, laceration, lesions, lumps, rash, wounds, others Allergic/Immunocompromised: denies: Difficulty Healing, Frequent Infections, Hives, Itching, others Hematologic/Lymphatic: denies: anemia, blood clots, easy bleeding, easy bruising, swollen glands, others Endocrine: denies: excessive hunger, excessive sweating, excessive thirst, excessive urination, flushing, intolerance to cold, intolerance to heat, unexplained weight gain, unexplained weight loss, others Psychiatric: denies: anxiety, bipolar disorder, depression, hopeless, panic disorder, schizophrenia, sleepless, suicidal, others Unable to Obtain due to: Altered Mental Status All Other Systems: Reviewed and Negative (As per HPI) Physical Exam General Appearance: Moderate Distress (Moderate distress at time of evaluation. 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 Condition may be drug induced or alcohol related.), Normal HEENT: Normal ENT Inspection, Pharynx Normal, TMs Normal Neck: Full Range of Motion, Non-Tender, Normal, Normal Inspection Respiratory: Chest Non-Tender, Lungs Clear, No Accessory Muscle Use, No Respiratory Distress, Normal Breath Sounds Cardiovascular: No Edema, No JVD, No Murmur, No Gallop, Normal Peripheral P ulses, Regular Rate/Rhythm Breast Exam: Deferred Gastrointestinal: Other (Patient has multiple laparoscopic incision sites on his abdomen. Relatively unremarkable evaluation. Diffuse nonspecific pain. No pulsatile masses.) Genitalia: Deferred Pelvic: Deferred Rectal: Deferred Extremities: Normal inspection, Pedal edema Neurologic: Depressed Affect Cerebellar Function: NOT DONE Reflexes: NOT DONE Skin: Dry, Normal Color, Warm Lymphatic: No Adenopathy Was a procedure done? Was a procedure done?: No Differential Dx Considerations may include: encephalopathy, dehydration, electrolyte imbalance, intracranial bleed, CVA, TIA, UTI, substance abuse, among others X-Ray, Labs, Meds, VS Vital Signs Date Time Temp Pulse Resp B/P (MAP) Pulse Ox O2 Delivery O2 Flow Rate FiO2 05/21/25 11:36 63 05/21/25 10:35 65 14 152/89 97 Lab Test 05/21/25 11:03 Range/Units White Blood Count 7.2 4.4-10.8 10^3/uL Red Blood Count 5.19 4.5-5.90 10^6/uL Hemoglobin 15.1 13.5-17.5 g/dL Hematocrit 44.5 41.0-53.0 % Mean Corpuscular Volume 85.7 80.0-100.0 fL Mean Corpuscular Hemoglobin 29.1 28.0-32.0 pg Mean Corpuscular Hemoglobin Concent 33.9 32.0-36.0 g/dL Red Cell Distribution Width 14.2 11.8-14.3 % Platelet Count 233 140-450 10^3/uL Mean Platelet Volume 8.2 6.9-10.8 fL Neutrophils (%) (Auto) 55.2 37.0-80.0 % Lymphocytes (%) (Auto) 34.2 10.0-50.0 % Monocytes (%) (Auto) 6.7 0.0-12.0 % Eosinophils (%) (Auto) 3.5 0.0-7.0 % Basophils (%) (Auto) 0.4 0.0-2.0 % Neutrophils # (Auto) 4.0 1.6-8.6 10 ^3/uL Lymphocytes # (Auto) 2.5 0.4-5.4 10 ^3/uL Monocytes # (Auto) 0.5 0-1.3 10 ^3/uL Eosinophils # (Auto) 0.3 0-0.8 10 ^3/uL Basophils # (Auto) 0 0-0.2 10 ^3/uL Nucleated Red Blood Cells 0.1 % D-Dimer, Quantitative 0.66 H 0.0-0.49 mg/L FEU Sodium Level 141 136-145 mmol/L Potassium Level 3.7 3.5-5.1 mmol/L Chloride Level 107 98-107 mmol/L Carbon Dioxide Level 22 20-31 mmol/L Anion Gap 12 5-15 Blood Urea Nitrogen 13 9-23 mg/dL Creatinine 0.99 0.700-1.30 mg/dL Glomerular Filtration Rate Calc 85 >90 mL/min BUN/Creatinine Ratio 13.1 10.0-20.0 Serum Glucose 126 H 74-106 mg/dL Lactic Acid Level 2.0 0.4-2.0 mmol/L Calcium Level 9.0 8.7-10.4 mg/dL Total Bilirubin 0.6 0.2-1.0 mg/dL Aspartate Amino Transferase (AST) 34 13-40 U/L Alanine Aminotransferase (ALT) 43 H 7-40 U/L Alkaline Phosphatase 99 46-116 U/L Troponin I High Sensitivity 3 L </=54 ng/L Total Protein 7.4 5.7-8.2 g/dL Albumin 4.4 3.2-4.8 g/dL Lipase 52 12-53 U/L [place] [id number] Ph: [phone] DIAGNOSTIC IMAGING Diagnostic Imaging Report : [id number] Signed PATIENT: BETO HERBERT ACCT: [id number] UNIT: [id number] : 1960 LOC: ER ROOM / BED: / AGE / SEX: 64 / M ADM STATUS: REG ER SERVICE 1049 ORDERING PHYSICIAN: MIGUEL SMITH PAC PROCEDURE(s): HWOCT - HEAD WITHOUT CONTRAST REASON: Altered mental status ORDER NUMBER(s): [id number], ACCESSION NUMBER(s): [id number] CLINICAL INFORMATION: Altered mental status. TECHNIQUE: Axial imaging was obtained through the brain without contrast. Coronal and sagittal reformatted images were obtained, reviewed, and stored. Images were reviewed in brain and bone windows. All CT scans at this medical facility are performed using dose modulation techniques as appropriate to a performed exam including the following: Automated exposure control was utilized; adjustment of the MA and/or KV according to patient size; and use of iterative reconstruction technique. CTDIvol = 57.78 mGy DLP = 1040.5 mGy-cm COMPARISON: CT HEAD WITHOUT CONTRAST on DOS: 04/28/25 FINDINGS: There is no acute intracranial hemorrhage. No mass effect or midline shift. Similar-appearing encephalomalacia in the left cerebral hemisphere. Ventricles are unchanged in size, with stable ex vacuo dilatation of the left lateral ventricle due to left cerebral encephalomalacia. Basal cisterns are patent. The calvarium is unremarkable. Mild mucosal thickening of the paranasal sinuses. Likely small retention cyst versus polyp in the right maxillary sinus. Mastoid air cells are clear. IMPRESSION: 1. No CT evidence of acute intracranial abnormality. 2. Nonacute findings as described above. ATED BY: BETO CARRANZA DO DICTATED DATE/TIME: 05/21/25 1143 SIGNED BY: BETO CARRANZA DO SIGNED DATE/TIME: 05/21/25 1143 CC: X-Ray, Labs, Meds, VS Comment All studies performed the ED were evaluated by me personally. Serum studies were relatively unremarkable for any acute findings. Very mildly elevated D- dimer. EKG revealed a sinus rhythm with a rate of 63. Anterior septal infarct that is old was noted as well as a baseline wander in lead V1. FL interval 127 and QT interval of 434. We attempted multiple times to ascertain urine for the patient, and after several attempts, nursing informed me that it appears the patient had eloped from the facility. Time of 1ST Reevaluation: 16:42 Reevaluation 1ST: Unchanged Consultation: PCP Patient Education/Counseling: Diagnosis, Treatment Family Education/Counseling: Diagnosis, Treatment, No Family Present SEPSIS Sepsis Screen Date sepsis recognized/suspect: May 21, 2025 Time Sepsis recognized/suspect: 1038 Recent Procedure: No On Antibiotic Therapy: No Respiratory Rate >20: No Heart Rate >90: No Temp<36 C (96.8 F) or >38.3 C: No SBP <90 or MAP <65 mmHG: No New Acute Mental Status Change: No Is the patient on CPAP, BIPAP,: No Physician Orders Heplock Iv (05/21/25 ) Urinalysis (05/21/25 10:49) Drug Screen (05/21/25 10:49) Electrocardigram (05/21/25 10:49) Head Without Contrast (05/21/25 10:49) *Consult Dr. Khai Scott (05/21/25 10:49) Vital Signs Date Time Temp Pulse Resp B/P (MAP) Pulse Ox O2 Delivery O2 Flow Rate FiO2 05/21/25 11:36 63 05/21/25 10:35 65 14 152/89 97 Laboratory Tests Test 05/21/25 11:03 Lactic Acid Level 2.0 mmol/L (0.4-2.0) White Blood Count 7.2 10^3/uL (4.4-10.8) Departure 1 Departure Time of Disposition: 16:44 Impression: Primary Impression: Abdominal pain Disposition: LEFT AWOL/ELOPED Condition: Fair Discharged With: Self Critical Care Note Critical Care Time?: No Stability Stability form required: No Heart Score Heart Score: Heart Score Response (Comments) Value History Slightly Suspicious 0 EKG Normal 0 Age 45-64 1 Risk Factors 1 or 2 risk factors 1 Troponin Normal limit 0 Total 2 I personally scribed for MIGUEL SMITH PAC ([email or web address]) on 05/21/25 at 11:13. Electronically submitted by Sergio Gusman ([email or web address]). I personally scribed for MIGUEL SMITH PAC ([email or web address]) on 05/21/25 at 14:25. Electronically submitted by Sergio Gusman ([email or web address]). MIGUEL SMITH PAC May 21, 2025 11:13
[2025-05-21 11:17] LABS: Hematocrit 44.5 % (41.0-53.0); Hemoglobin 15.1 g/dL (13.5-17.5); Mean Corpuscular Hemoglobin 29.1 pg (28.0-32.0); Mean Corpuscular Volume 85.7 fL (80.0-100.0); Nucleated Red Blood Cells % 0.1 %
[2025-05-21 11:36] VITALS: PULSE 63
[2025-05-21 11:36] LABS: Albumin 4.4 g/dL (3.2-4.8); Alkaline Phosphatase 99 U/L (46-116); Anion Gap 12 (5-15); BUN/Creatinine Ratio 13.1 (10.0-20.0); Blood Urea Nitrogen 13 mg/dL (9-23); Calcium 9.0 mg/dL (8.7-10.4); Carbon Dioxide 22 mmol/L (20-31); Chloride 107 mmol/L (98-107); Lipase 52 U/L (12-53); Potassium 3.7 mmol/L (3.5-5.1); Sodium 141 mmol/L (136-145); Total Protein 7.4 g/dL (5.7-8.2)
[2025-05-21 11:37] LABS: Bilirubin, Total 0.6 mg/dL (0.2-1.0)
[2025-05-21 11:41] LABS: Alanine Aminotransferase 43 U/L (7-40); Glucose 126 mg/dL (74-106)
--- NOTE | 2025-05-21 11:45 | DVH ---
CLINICAL INFORMATION: Altered mental status. TECHNIQUE: Axial imaging was obtained through the brain without contrast. Coronal and sagittal reform atted images were obtained, reviewed, and stored. Images were reviewed in brain and bone windows. Al l CT scans at this medical facility are performed using dose modulation techniques as appropriate to a performed exam including the following: Automated exposure control was utilized; adjustment of the MA and/or KV according to patient size; and use of iterative reconstruction technique. CTDIvol = 57.7 8 mGy DLP = 1040.5 mGy-cm COMPARISON: CT HEAD WITHOUT CONTRAST on DOS: 04/28/25 FINDINGS: There is no acute intracranial hemorrhage. No mass effect or midline shift. Similar-appeari ng encephalomalacia in the left cerebral hemisphere. Ventricles are unchanged in size, with stable ex vacuo dilatation of the left lateral ventricle due to left cerebral encephalomalacia. Basal cisterns are patent. The calvarium is unremarkable. Mild mucosal thickening of the paranasal sinuses. Likely small retention cyst versus polyp in the right maxillary sinus. Mastoid air cells are clear. IMPRESSION: 1. No CT evidence of acute intracranial abnormality. 2. Nonacute findings as described above.
--- NOTE | 2025-05-23 07:51 | ECG ---
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
== END 2025-05-21 16:39 | disposition left against medical advice (07) ==
LOC: ER 10:33
DX: R10.9 Unspecified abdominal pain (principal); R53.1 Weakness; R41.0 Disorientation, unspecified; I10 Essential (primary) hypertension; F17.210 Nicotine dependence, cigarettes, uncomplicated; Z79.899 Other long term (current) drug therapy; Z86.73 Personal history of transient ischemic attack (TIA), and cerebral infarction without residual deficits
CPT/HCPCS: 36415; 70450; 80053; 83605; 83690; 84484; 85025; 85379; 93005